=== PATIENT | male | born 1945 | race African-American/Black ===

== ENCOUNTER 2020-08-22 07:42 | Outpatient (CLI) | payer OTHER ==
[2020-08-22] VITALS (8 sets, daily range): BP systolic 94–117; BP diastolic 58–74
[~2020-08-22] VITALS: Ht 177.8 cm; Wt 54.4 kg
[~2020-08-22 07:42] MED LIST: BISA5TAB4 PO; PANT40TA77 PO
[2020-08-22] MEDS ORDERED: LIDOCAINE 1%/EPI 1:100,000 20 ML VIAL. ONE (08:23)
[2020-08-22] MEDS ORDERED: ceFAZolin SODIUM IV Push 1 GM VIAL. IVP ONE ×2 (08:27→08:30)
[2020-08-22] MEDS ORDERED: MIDAZOLAM HCL/PF 2 MG/2 ML VIAL. ONE (08:28)
[2020-08-22] MEDS ORDERED: fentaNYL PF VIAL 100 MCG/2 ML VIAL ONE (08:28)
[2020-08-22] MEDS ORDERED: LIDOCAINE 1%/EPI 1:100,000 20 ML VIAL. SQ ONE (08:30)
[2020-08-22] MEDS ORDERED: MIDAZOLAM HCL/PF 2 MG/2 ML VIAL. IV ONE (08:30)
[2020-08-22] MEDS ORDERED: fentaNYL PF VIAL 100 MCG/2 ML VIAL IV ONE (08:30)
[2020-08-22 08:35] LABS: PROTHROMBIN TIME PATIENT 13.9 SEC (11.7-14.0)
[2020-08-22 08:36] LABS: BASO % 1 % (0-3); EOS # 0.2 x10^3/uL (0.0-0.7); EOS % 3 % (0-3); LYMPH # 2.8 x10^3/uL (1.0-4.8); LYMPH % 35 % (24-48); MEAN CORPUSCULAR HEMOGLOBIN 22 pg (25-35); MEAN CORPUSCULAR HGB CONC 32 g/dL (31-37); MEAN CORPUSCULAR VOLUME 70 fL (79-100); MONO # 0.6 x10^3/uL (0.0-1.1); MONO % 8 % (0-9); NEUT # 4.4 x10^3/uL (1.8-7.7); NEUT % 54 % (31-73); PLATELET COUNT 460 x10^3/uL (140-400); RED BLOOD COUNT 2.67 x10^6/uL (4.30-5.70); WHITE BLOOD COUNT 8.1 x10^3/uL (4.0-11.0)
[2020-08-22] MEDS ORDERED: HEPARIN PF 500 UNIT/5 ML DISP.SYRIN. IVP ONE ×2 (08:56→09:15)
[2020-08-22 09:02] LABS: HEMATOCRIT 18.8 % (39.0-53.0)
--- NOTE | 2020-08-22 09:28 | PDOC ---
MODERATE SEDATION ASSESSMENT RISKS/ALTERNATIVES Risks/Alternatives Risks and alternatives of this type of sedation and procedure discussed with: RISK/ALTERNATIVES: Patient H & P ON CHART H & P H & P on chart and reviewed for co-morbid conditions and appropriate labs. H&P ON CHART: Yes STATUS PREG STATUS ASSESSED: Yes MEDS/ALLERGIES REVIEWED Meds/Allergies Reviewed Medications and Allergies including time and route of recently administered narcotics and sedatives. MEDS/ALLERGIES REVIEWED: Yes ASA RATING ASA RATING: II AIRWAY ASSESSMENT Airway Assessment Airway patency, oral function limitations, presence of caps, crowns, dentures, partials, and ability to extend neck assessed. AIRWAY ASSESSMENT: Yes MALLAMPATI SCORE MALLAMPATI SCORE: II PRE-SEDATION ASSESSMENT PRE-SEDATION ASSESSMENT: Yes SANTOS VALLEJO MD Aug 22, 2020 09:28
--- NOTE | 2020-08-22 09:29 | PDOC ---
BRIEF OPERATIVE NOTE Pre-Op Diagnosis Colon cancer Post-Op Diagnosis same Procedure Performed Port Surgeon Haroon Anesthesia Type: Conscious Sedation Findings right IJ port Complications No immediate SANTOS VALLEJO MD Aug 22, 2020 09:29
--- NOTE | 2020-08-22 11:34 | NUR ---
pt education discussed with family and pt. PIV dc'd. Pt ambulated and tolerated PO. Pt home with family
--- NOTE | 2020-08-22 16:07 | RAD ---
Procedure: Port-A-Cath placement Clinical Indication: Adult male requiring Port-A-Cath for chemotherapy Sedation: Conscious sedation was administered with a total intraprocedural [id number] time of 30 minutes. The patient was monitored by a qualified independent observer throughout the time of sedation. Please refer to the medical record for exact doses of medications utilized to achieve moderate sedation. Antibiotics: Antibiotic was administered intravenously within 1 hour of the procedure start time. Exposure: Fluoro Time: 0.2 minutes Images: 1 Contrast: None Sterility: All elements of maximal sterile barrier technique including the use of a cap, mask, sterile gown, sterile gloves, large sterile sheet, appropriate hand hygiene, and 2% chlorhexidine for cutaneous antisepsis (or acceptable alternative antiseptic per current guidelines) were followed for this procedure. Consent: The procedure was explained in its entirety to the patient or the patients designated treasury representative by a member of the treatment team, including a discussion of the risks, benefits and commonly accepted alternatives to the procedure, as well as the expected consequences of no therapy whatsoever. Discussion of the risks included, but was not limited to, those that are most frequent and those that are rare but possibly severe or life-threatening, as well as the possibility of unforeseen complications. Technique and Findings: Ultrasound interrogation of the right neck revealed patency and compressibility of the internal jugular vein. A hardcopy ultrasound image was recorded as a 21-gauge micropuncture needle was used to gain access to this vessel. The needle was exchanged over a wire for a peel-away sheath. The skin over the ipsilateral anterior chest wall was then copiously anesthetized with 1% lidocaine plus epinephrine, and a small dermatotomy was made. Blunt dissection techniques were used to create a pocket for the port. The port was then tunneled subcutaneously towards the neck dermatotomy then deployed under fluoroscopic guidance through the peel-away sheath such that the distal tip resided in the proximal right atrium. The port was accessed and found to flush and aspirate with ease. The port was packed with heparin. The pocket was copiously irrigated with sterile saline then closed with deep interrupted and running subcuticular 4-0 Vicryl suture. Dermabond was used to close the neck dermatotomy. Complications: No immediate Impression: 1. Ultrasound and fluoroscopic guided right IJ Port-A-Cath placement as described.
== END 2020-08-22 11:59 | disposition home or self-care (01) ==
LOC: INTRAD 07:42
PROVIDERS: ATTEND Internal Medicine Hematology & Oncology
DX: Z45.2 Encounter for adjustment and management of vascular access device (principal); C18.9 Malignant neoplasm of colon, unspecified; F17.210 Nicotine dependence, cigarettes, uncomplicated; Z79.899 Other long term (current) drug therapy; Z72.89 Other problems related to lifestyle; Z98.890 Other specified postprocedural states
CPT/HCPCS: 36415; 36561; 76937; 77001; 85025; 85610; 99152; 99153; C1751; C1769; C1892; J0690; J1642; J2250; J3010; J3490

== ENCOUNTER 2020-08-23 13:54 | Inpatient (IN) | payer OTHER ==
[2020-08-23] VITALS (11 sets, daily range): BP systolic 117–138; BP diastolic 64–83
[~2020-08-23] VITALS: Ht 177.8 cm; Wt 52.9 kg
[~2020-08-23 13:54] MED LIST changes: -ASPI1POW PO; -SIME80TA14 PO
[2020-08-23 16:25] LABS: BASO # 0.1 x10^3/uL (0.0-0.2); BASO % 1 % (0-3); EOS # 0.3 x10^3/uL (0.0-0.7); EOS % 3 % (0-3); LYMPH # 2.1 x10^3/uL (1.0-4.8); LYMPH % 25 % (24-48); MEAN CORPUSCULAR HEMOGLOBIN 22 pg (25-35); MEAN CORPUSCULAR HGB CONC 31 g/dL (31-37); MEAN CORPUSCULAR VOLUME 70 fL (79-100); MONO # 0.7 x10^3/uL (0.0-1.1); MONO % 8 % (0-9); NEUT # 5.4 x10^3/uL (1.8-7.7); NEUT % 63 % (31-73); PLATELET COUNT 458 x10^3/uL (140-400); RED BLOOD COUNT 2.43 x10^6/uL (4.30-5.70); RED CELL DISTRIBUTION WIDTH 38.4 % (11.5-14.5); WHITE BLOOD COUNT 8.5 x10^3/uL (4.0-11.0)
[2020-08-23 16:38] LABS: HEMATOCRIT 17.1 % (39.0-53.0); HEMOGLOBIN 5.4 g/dL (13.0-17.5)
--- NOTE | 2020-08-23 17:14 | PHYS DOC ---
Past Medical History Past Medical History: Anemia Additional Past Medical Histor: colon cancer Past Surgical History: No Surgical History Smoking Status: Current Every Day Smoker Alcohol Use: Rarely General Adult EDM: Chief Complaint: ABNORMAL LABS HPI: HPI: Patient is a 75 year old male who was sent here from his oncology clinic due to low hemoglobin. Patient was recently diagnosed with colon cancer, had intermittent rectal bleeding. Patient denies taking any blood thinner. Patient denies any abdominal pain. Patient denies any cough or fever, no chest pain. Review of Systems: Review of Systems: Constitutional: Denies fever or chills. [] Eyes: Denies change in visual acuity. [] HENT: Denies nasal congestion or sore throat. [] Respiratory: Denies cough or shortness of breath. [] Cardiovascular: Denies chest pain or edema. [] GI: Denies abdominal pain, nausea, vomiting, positive for intermittent rectal bleeding : Denies dysuria. [] Musculoskeletal: Denies back pain or joint pain. [] Integument: Denies rash. [] Neurologic: Denies headache, focal weakness or sensory changes. [] Endocrine: Denies polyuria or polydipsia. [] Lymphatic: Denies swollen glands. [] Psychiatric: Denies depression or anxiety. [] Heart Score: Risk Factors: Risk Factors: DM, Current or recent (<one month) smoker, HTN, HLP, family history of CAD, obesity. Risk Scores: Score 0 - 3: 2.5% MACE over next 6 weeks - Discharge Home Score 4 - 6: 20.3% MACE over next 6 weeks - Admit for Clinical Observation Score 7 - 10: 72.7% MACE over next 6 weeks - Early Invasive Strategies Allergies: Allergies: Allergies Coded Allergies Type Severity Reaction Last Updated Verified No Known Drug Allergies 08/12/20 No Physical Exam: PE: Constitutional: Well developed, well nourished, no acute distress, non-toxic appearance. [] HENT: Normocephalic, atraumatic, bilateral external ears normal, oropharynx moist, no oral exudates, nose normal. [] Eyes: PERRLA, EOMI, conjunctiva normal, no discharge. [] Neck: Normal range of motion, no tenderness, supple, no stridor. [] Cardiovascular:Heart rate regular rhythm, no murmur [] Lungs & Thorax: Bilateral breath sounds clear to auscultation [] Abdomen: Bowel sounds normal, soft, no tenderness, no masses, no pulsatile masses. [] Skin: Warm, dry, no erythema, no rash. [] Back: No tenderness, no CVA tenderness. [] Extremities: No tenderness, no cyanosis, no clubbing, ROM intact, no edema. [] Neurologic: Alert and oriented X 3, normal motor function, normal sensory function, no focal deficits noted. [] Psychologic: Affect normal, judgement normal, mood normal. [] Current Patient Data: Labs: Laboratory Tests Test 08/23/20 16:00 White Blood Count 8.5 x10^3/uL (4.0-11.0) Red Blood Count 2.43 x10^6/uL (4.30-5.70) L Hemoglobin 5.4 g/dL (13.0-17.5) *L Hematocrit 17.1 % (39.0-53.0) *L Mean Corpuscular Volume 70 fL (79-100) L Mean Corpuscular Hemoglobin 22 pg (25-35) L Mean Corpuscular Hemoglobin Concent 31 g/dL (31-37) Red Cell Distribution Width 38.4 % (11.5-14.5) H Platelet Count 458 x10^3/uL (140-400) H Neutrophils (%) (Auto) 63 % (31-73) Lymphocytes (%) (Auto) 25 % (24-48) Monocytes (%) (Auto) 8 % (0-9) Eosinophils (%) (Auto) 3 % (0-3) Basophils (%) (Auto) 1 % (0-3) Neutrophils # (Auto) 5.4 x10^3/uL (1.8-7.7) Lymphocytes # (Auto) 2.1 x10^3/uL (1.0-4.8) Monocytes # (Auto) 0.7 x10^3/uL (0.0-1.1) Eosinophils # (Auto) 0.3 x10^3/uL (0.0-0.7) Basophils # (Auto) 0.1 x10^3/uL (0.0-0.2) Platelet Estimate Pending Laboratory Tests 08/23/20 16:00 Vital Signs: Vital Signs Date Time Temp Pulse Resp B/P (MAP) Pulse Ox O2 Delivery O2 Flow Rate FiO2 08/23/20 15:07 97.5 99 16 129/65 (86) 100 Room Air 97.5 EKG: EKG: [] Radiology/Procedures: Radiology/Procedures: [] Course & Med Decision Making: Course & Med Decision Making Pertinent Labs and Imaging studies reviewed. (See chart for details) [] Dragon Disclaimer: Dragon Disclaimer: This electronic medical record was generated, in whole or in part, using a voice recognition dictation system. Departure Departure Impression: Primary Impression: Anemia Additional Impressions: Colon cancer Rectal bleeding Disposition: ADMITTED INPT THIS HOSP Admitting Physician: TANNER (DR. NEWMAN) Condition: STABLE Referrals: NO PCP (PCP) ESSIE MONTALVO DO Aug 23, 2020 17:14
[2020-08-23 17:15] LABS: PLT ESTIMATE INCREASED (ADEQUATE)
[2020-08-23 17:16] LABS: SCHISTOCYTES MANY; TARGET CELLS OCC; TEAR DROP CELLS OCC
[2020-08-23 17:17] LABS: CALCIUM 8.2 mg/dL (8.5-10.1); CREATININE 0.7 mg/dL (0.7-1.3); GFR 133.4; POTASSIUM 4.3 mmol/L (3.5-5.1)
[2020-08-23 17:17] LABS: BURR CELLS OCC; HYPOCHROMIA MARKED; MICROCYTOSIS MARKED; POIKILOCYTOSIS MARKED
[2020-08-23 17:18] LABS: ANISOCYTOSIS MARKED
[2020-08-23 17:19] LABS: POLYCHROMASIA OCCASIONAL
[2020-08-23 17:20] LABS: ACANTHOCYTES OCC
[2020-08-23 17:30] LABS: ALBUMIN 1.9 g/dL (3.4-5.0); ALBUMIN/GLOBULIN RATIO 0.5 (1.0-1.7); TOTAL BILIRUBIN 0.1 mg/dL (0.2-1.0); TOTAL PROTEIN 5.9 g/dL (6.4-8.2)
[2020-08-23] MEDS ORDERED: ACETAMINOPHEN 500 MG TABLET PO ONE (17:30)
--- NOTE | 2020-08-23 19:02 | HP ---
ADMIT DATE: 08/23/2020 CHIEF COMPLAINT: Abnormal labs. HISTORY OF PRESENT ILLNESS: The patient is a pleasant 75-year-old male who I have seen within the past couple of weeks. Basically, he has got colon cancer and he bleeds down a little bit, so he requires transfusions periodically. Once again, he presents to the ER with abnormal labs. His hemoglobin is down to 5.4. I discussed the case with ER physician. We are going to admit the patient and consult Hematology/Oncology and transfuse him. PAST MEDICAL HISTORY: Colon cancer, chronic anemia, tobacco abuse. ALLERGIES: None. FAMILY HISTORY: Colon cancer. SOCIAL HISTORY: He smokes. No drink or drugs. He is retired. MEDICATIONS: Reviewed, please refer to the MRAD. REVIEW OF SYSTEMS: GENERAL: No history of weight change, weakness or fevers. SKIN: No bruising, hair changes or rashes. EYES: No blurred, double or loss of vision. NOSE AND THROAT: No history of nosebleeds, hoarseness or sore throat. HEART: No history of palpitations, chest pain or shortness of breath on exertion. LUNGS: Denies cough, hemoptysis, wheezing or shortness of breath. GASTROINTESTINAL: Denies changes in appetite, nausea, vomiting, diarrhea or constipation. GENITOURINARY: No history of frequency, urgency, hesitancy or nocturia. NEUROLOGIC: Denies history of numbness, tingling, tremor or weakness. PSYCHIATRIC: No history of panic, anxiety or depression. ENDOCRINE: No history of heat or cold intolerance, polyuria or polydipsia. EXTREMITIES: Denies muscle weakness, joint pain, pain on walking or stiffness. PHYSICAL EXAMINATION: VITALS: Within normal limits and are stable. GENERAL: No apparent distress. Alert and oriented. HEENT: Normal cephalic atraumatic, external auditory canals are patent EYES: Extraocular muscles are intact, pupils are equally round and reactive to light and accommodation MUSCULOSKELETAL: Well developed, well nourished, good range of motion ENDOCRINE: No thyromegaly was palpated LYMPHATICS: No cervical chain or axillary nodes were noted. HEMATOPOIETIC: No bruising. NECK: Supple, no JVD, no thyromegaly was noted. LUNGS: Clear to auscultation in all lung beal without rhonchi or wheezing. HEART: RRR, S1, S2 present. Peripheral pulses intact, no obvious murmurs were noted. ABDOMEN: Soft, nontender. Positive bowel sounds no organomegaly, normal bowel sounds. EXTREMITIES: Without any cyanosis, clubbing, or edema. Pedal pulses intact, Homans sign is negative. NEUROLOGIC: Normal speech, normal tone. A & O x3, moves all extremities, no obvious focal deficits. PSYCHIATRIC: Normal affect, normal mood. Stable. SKIN: No ulcerations or rashes, good skin turgor, no jaundice. VASCULAR: Good capillary refill, neurovascular bundle appears to be intact. LABORATORY DATA: Hemoglobin is 5.4. ASSESSMENT AND PLAN: Colon cancer and chronic anemia. The patient will be admitted. We will transfuse 2 units of packed red blood cells. Consult Hematology/Oncology. Home meds, DVT prophylaxis. Full code. O2 per nasal cannula. Trend labs. AILIN NEWMAN DO DR: TIMA/anamika JOB#: [id number] / [id number]
[2020-08-24] VITALS (7 sets, daily range): BP systolic 115–133; BP diastolic 63–79
[2020-08-24] MEDS ORDERED: ASPI1POW PO (00:16)
[2020-08-24] MEDS: MORPHINE SULFATE 2 MG/ML VIAL. IV PRN (06:12)
[2020-08-24] MEDS: PANTOPRAZOLE 40 MG TABLET.DR. PO SCH (06:12)
[2020-08-24 06:38] LABS: BASO # 0.1 x10^3/uL (0.0-0.2); BASO % 1 % (0-3); EOS # 0.2 x10^3/uL (0.0-0.7); EOS % 3 % (0-3); HEMATOCRIT 23.4 % (39.0-53.0); LYMPH # 2.5 x10^3/uL (1.0-4.8); LYMPH % 30 % (24-48); MEAN CORPUSCULAR HEMOGLOBIN 24 pg (25-35); MEAN CORPUSCULAR HGB CONC 33 g/dL (31-37); MEAN CORPUSCULAR VOLUME 74 fL (79-100); MONO # 0.6 x10^3/uL (0.0-1.1); MONO % 7 % (0-9); NEUT # 4.9 x10^3/uL (1.8-7.7); NEUT % 59 % (31-73); PLATELET COUNT 425 x10^3/uL (140-400); RED BLOOD COUNT 3.17 x10^6/uL (4.30-5.70); RED CELL DISTRIBUTION WIDTH 33.8 % (11.5-14.5); WHITE BLOOD COUNT 8.3 x10^3/uL (4.0-11.0)
[2020-08-24 06:42] LABS: HEMOGLOBIN 7.6 g/dL (13.0-17.5)
[2020-08-24 06:49] LABS: CALCIUM 8.3 mg/dL (8.5-10.1); CREATININE 0.7 mg/dL (0.7-1.3); GFR 133.4; POTASSIUM 4.1 mmol/L (3.5-5.1)
--- NOTE | 2020-08-24 08:05 | PDOC ---
[employer] PROGRESS NOTE Date of Service DOS: DATE: 08/24/20 TIME: 08:05 Chief Complaint Chief Complaint Colon cancer Chronic anemia Tobacco abuse. History of Present Illness History of Present Illness 08/24/2020 Patient seen and examined Chart reviewed Discussed with RN Patient appeared to be comfortable but was complaining of runny stool. Vitals/I&O Vitals/I&O: Vital Signs Date Time Temp Pulse Resp B/P (MAP) Pulse Ox O2 Delivery O2 Flow Rate FiO2 08/24/20 07:00 98.0 75 18 126/76 (93) 90 Room Air 98.0 I & O 08/23/20 08/23/20 08/24/20 15:00 23:00 07:00 Intake Total 360 ml 680 ml Balance 360 ml 680 ml Physical Exam General: Alert, Oriented X3, Cooperative Heart: Regular rate, Normal S1, Normal S2 Lungs: Clear Abdomen: Normal bowel sounds, Soft Labs Labs: Laboratory Tests Test 08/23/20 16:00 08/23/20 16:52 08/24/20 06:25 White Blood Count 8.5 x10^3/uL (4.0-11.0) 8.3 x10^3/uL (4.0-11.0) Red Blood Count 2.43 x10^6/uL (4.30-5.70) 3.17 x10^6/uL (4.30-5.70) Hemoglobin 5.4 g/dL (13.0-17.5) 7.6 g/dL (13.0-17.5) Hematocrit 17.1 % (39.0-53.0) 23.4 % (39.0-53.0) Mean Corpuscular Volume 70 fL (79-100) 74 fL (79-100) Mean Corpuscular Hemoglobin 22 pg (25-35) 24 pg (25-35) Mean Corpuscular Hemoglobin Concent 31 g/dL (31-37) 33 g/dL (31-37) Red Cell Distribution Width 38.4 % (11.5-14.5) 33.8 % (11.5-14.5) Platelet Count 458 x10^3/uL (140-400) 425 x10^3/uL (140-400) Neutrophils (%) (Auto) 63 % (31-73) 59 % (31-73) Lymphocytes (%) (Auto) 25 % (24-48) 30 % (24-48) Monocytes (%) (Auto) 8 % (0-9) 7 % (0-9) Eosinophils (%) (Auto) 3 % (0-3) 3 % (0-3) Basophils (%) (Auto) 1 % (0-3) 1 % (0-3) Neutrophils # (Auto) 5.4 x10^3/uL (1.8-7.7) 4.9 x10^3/uL (1.8-7.7) Lymphocytes # (Auto) 2.1 x10^3/uL (1.0-4.8) 2.5 x10^3/uL (1.0-4.8) Monocytes # (Auto) 0.7 x10^3/uL (0.0-1.1) 0.6 x10^3/uL (0.0-1.1) Eosinophils # (Auto) 0.3 x10^3/uL (0.0-0.7) 0.2 x10^3/uL (0.0-0.7) Basophils # (Auto) 0.1 x10^3/uL (0.0-0.2) 0.1 x10^3/uL (0.0-0.2) Platelet Estimate Increased (ADEQUATE) Polychromasia Occasional Hypochromasia Marked Poikilocytosis Marked Anisocytosis Marked Microcytosis Marked Target Cells Occ Tear Drop Cells Occ Tavon Cells Occ Acanthocytes Occ Schistocytes Many Sodium Level 143 mmol/L (136-145) 142 mmol/L (136-145) Potassium Level 4.3 mmol/L (3.5-5.1) 4.1 mmol/L (3.5-5.1) Chloride Level 108 mmol/L (98-107) 108 mmol/L (98-107) Carbon Dioxide Level 28 mmol/L (21-32) 28 mmol/L (21-32) Anion Gap 7 (6-14) 6 (6-14) Blood Urea Nitrogen 16 mg/dL (8-26) 15 mg/dL (8-26) Creatinine 0.7 mg/dL (0.7-1.3) 0.7 mg/dL (0.7-1.3) Estimated GFR (Cockcroft-Gault) 133.4 133.4 BUN/Creatinine Ratio 23 (6-20) Glucose Level 89 mg/dL (70-99) 79 mg/dL (70-99) Calcium Level 8.2 mg/dL (8.5-10.1) 8.3 mg/dL (8.5-10.1) Total Bilirubin 0.1 mg/dL (0.2-1.0) Aspartate Amino Transf (AST/SGOT) 18 U/L (15-37) Alanine Aminotransferase (ALT/SGPT) 17 U/L (16-63) Alkaline Phosphatase 83 U/L (46-116) Total Protein 5.9 g/dL (6.4-8.2) Albumin 1.9 g/dL (3.4-5.0) Albumin/Globulin Ratio 0.5 (1.0-1.7) Assessment and Plan Assessmemt and Plan Assessment Colon cancer Chronic anemia Tobacco abuse Plan Full code DVT PPX Trend labs Subspecialty input appreciated PT/OT Continue home meds Problems Medical Problems: (1) Anemia Status: Acute (2) Colon cancer Status: Acute (3) Rectal bleeding Status: Acute Comment Review of Relevant I have reviewed the following items april (where applicable) has been applied. Medications: Current Medications Medications (Trade) Dose Ordered Sig/Marck Route PRN Reason Start Time Stop Time Status Last Admin Dose Admin Acetaminophen (Tylenol) 1,000 mg 1X ONCE PO 08/23/20 17:30 08/23/20 17:31 DC 08/23/20 17:26 Morphine Sulfate (Morphine Sulfate) 2 mg PRN Q2HR PRN IV SEVERE PAIN 7-10 08/24/20 02:00 08/24/20 06:12 Pantoprazole Sodium (Protonix) 40 mg DAILYAC PO 08/24/20 07:30 08/24/20 06:12 Justifications for Admission Other Justification AILIN NEWMAN III DO Aug 24, 2020 08:05
[2020-08-24] MEDS: SIMETHICONE 80 MG TAB.CHEW PO PRN (15:14)
[2020-08-24] MEDS: ACETAMINOPHEN 325 MG TABLET. PO PRN (18:43)
[2020-08-25 04:00] VITALS: BP 124/70
[2020-08-25] MEDS: ACETAMINOPHEN 325 MG TABLET. PO PRN ×2 (06:37→20:03)
[2020-08-25] MEDS: PANTOPRAZOLE 40 MG TABLET.DR. PO SCH (06:40)
[2020-08-25 06:42] LABS: BASO # 0.1 x10^3/uL (0.0-0.2); BASO % 1 % (0-3); EOS # 0.2 x10^3/uL (0.0-0.7); EOS % 2 % (0-3); HEMATOCRIT 23.5 % (39.0-53.0); HEMOGLOBIN 7.6 g/dL (13.0-17.5); LYMPH # 2.6 x10^3/uL (1.0-4.8); LYMPH % 32 % (24-48); MEAN CORPUSCULAR HEMOGLOBIN 24 pg (25-35); MEAN CORPUSCULAR HGB CONC 32 g/dL (31-37); MEAN CORPUSCULAR VOLUME 73 fL (79-100); MONO # 0.6 x10^3/uL (0.0-1.1); MONO % 8 % (0-9); NEUT # 4.7 x10^3/uL (1.8-7.7); NEUT % 57 % (31-73); PLATELET COUNT 445 x10^3/uL (140-400); RED CELL DISTRIBUTION WIDTH 34.4 % (11.5-14.5); WHITE BLOOD COUNT 8.1 x10^3/uL (4.0-11.0)
[2020-08-25 06:46] LABS: CALCIUM 8.2 mg/dL (8.5-10.1); CREATININE 0.9 mg/dL (0.7-1.3); GFR 99.8; POTASSIUM 3.8 mmol/L (3.5-5.1)
[2020-08-25 07:59] VITALS: BP 117/73
--- NOTE | 2020-08-25 09:23 | PDOC ---
[employer] PROGRESS NOTE Date of Service DOS: DATE: 08/25/20 TIME: 09:21 Chief Complaint Chief Complaint Colon cancer Chronic anemia Tobacco abuse. History of Present Illness History of Present Illness 08/24/2020 Patient seen and examined Chart reviewed Discussed with RN Patient appeared to be comfortable but was complaining of runny stool. 08/25 Patient seen and examined Chart reviewed Discussed with RN Patient is comfortable and was resting when we seen him Vitals/I&O Vitals/I&O: Vital Signs Date Time Temp Pulse Resp B/P (MAP) Pulse Ox O2 Delivery O2 Flow Rate FiO2 08/25/20 07:59 97.4 117/73 (88) 95 Room Air 97.4 I & O 08/24/20 08/24/20 08/25/20 15:00 23:00 07:00 Intake Total 700 ml 500 ml Balance 700 ml 500 ml Physical Exam General: Alert, Oriented X3, Cooperative Heart: Regular rate, Normal S1, Normal S2 Lungs: Clear Abdomen: Normal bowel sounds, Soft Extremities: No clubbing, No edema Skin: No rashes, No breakdown Labs Labs: Laboratory Tests Test 08/25/20 06:10 White Blood Count 8.1 x10^3/uL (4.0-11.0) Red Blood Count 3.20 x10^6/uL (4.30-5.70) Hemoglobin 7.6 g/dL (13.0-17.5) Hematocrit 23.5 % (39.0-53.0) Mean Corpuscular Volume 73 fL (79-100) Mean Corpuscular Hemoglobin 24 pg (25-35) Mean Corpuscular Hemoglobin Concent 32 g/dL (31-37) Red Cell Distribution Width 34.4 % (11.5-14.5) Platelet Count 445 x10^3/uL (140-400) Neutrophils (%) (Auto) 57 % (31-73) Lymphocytes (%) (Auto) 32 % (24-48) Monocytes (%) (Auto) 8 % (0-9) Eosinophils (%) (Auto) 2 % (0-3) Basophils (%) (Auto) 1 % (0-3) Neutrophils # (Auto) 4.7 x10^3/uL (1.8-7.7) Lymphocytes # (Auto) 2.6 x10^3/uL (1.0-4.8) Monocytes # (Auto) 0.6 x10^3/uL (0.0-1.1) Eosinophils # (Auto) 0.2 x10^3/uL (0.0-0.7) Basophils # (Auto) 0.1 x10^3/uL (0.0-0.2) Sodium Level 141 mmol/L (136-145) Potassium Level 3.8 mmol/L (3.5-5.1) Chloride Level 107 mmol/L (98-107) Carbon Dioxide Level 28 mmol/L (21-32) Anion Gap 6 (6-14) Blood Urea Nitrogen 11 mg/dL (8-26) Creatinine 0.9 mg/dL (0.7-1.3) Estimated GFR (Cockcroft-Gault) 99.8 Glucose Level 75 mg/dL (70-99) Calcium Level 8.2 mg/dL (8.5-10.1) Review of Systems Review of Systems: Denies chest pain or palpitations Denies headache or changes in vision Denies itching or rashes Assessment and Plan Assessmemt and Plan Problems Medical Problems: (1) Anemia Status: Acute (2) Colon cancer Status: Acute (3) Rectal bleeding Status: Acute Assessment: Colon cancer Chronic anemia Tobacco abuse. Plan: Trend hemoglobin Prn transfusions Awaiting oncology input Full code DVT prophylaxis Home meds PT/OT Comment Review of Relevant I have reviewed the following items april (where applicable) has been applied. Medications: Current Medications Medications (Trade) Dose Ordered Sig/Marck Route PRN Reason Start Time Stop Time Status Last Admin Dose Admin Simethicone (Gas-X) 80 mg PRN Q6HRS PRN PO GAS / BLOATING 08/24/20 13:45 08/24/20 15:14 Acetaminophen (Tylenol) 650 mg PRN Q6HRS PRN PO MILD PAIN / TEMP > 100.3'F 08/24/20 18:30 08/25/20 06:37 Justifications for Admission Other Justification AILIN NEWMAN III DO Aug 25, 2020 09:23
[2020-08-25 11:59] VITALS: BP 124/73
--- NOTE | 2020-08-25 14:26 | PDOC ---
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 Hb has improved post-transfusion. Oncology consult has been requested due to cancer hx. Patient is known to me from the office and is planned to start chemotherapy tomorrow. Recommendations: -Can DC home from my standpoint. Plan to start chemo jamison after discharge. Would like to start tomorrow -No additional transfusions needed at this time -Will plan additional IV iron in the office for iron deficiency -Full consult to follow. Please call [phone] with questions Godwin Larsen MD Hem-Onc SUKUMAR LARSEN MD Aug 25, 2020 14:26
[2020-08-25 15:59] VITALS: BP 132/81
[2020-08-25 19:00] VITALS: BP 134/80
[2020-08-25] MEDS: SIMETHICONE 80 MG TAB.CHEW PO PRN (20:06)
[2020-08-25 23:04] VITALS: BP 131/77
[2020-08-26] MEDS: SIMETHICONE 80 MG TAB.CHEW PO PRN (02:54)
[2020-08-26 03:07] VITALS: BP 130/77
[2020-08-26] MEDS: PANTOPRAZOLE 40 MG TABLET.DR. PO SCH (06:21)
[2020-08-26] MEDS: MORPHINE SULFATE 2 MG/ML VIAL. IV PRN (06:25)
[2020-08-26 06:49] LABS: CALCIUM 8.3 mg/dL (8.5-10.1); CREATININE 0.9 mg/dL (0.7-1.3); GFR 99.8
[2020-08-26 06:57] LABS: BASO # 0.1 x10^3/uL (0.0-0.2); BASO % 1 % (0-3); EOS # 0.2 x10^3/uL (0.0-0.7); EOS % 3 % (0-3); HEMOGLOBIN 7.8 g/dL (13.0-17.5); LYMPH # 3.1 x10^3/uL (1.0-4.8); LYMPH % 46 % (24-48); MEAN CORPUSCULAR HEMOGLOBIN 24 pg (25-35); MEAN CORPUSCULAR HGB CONC 32 g/dL (31-37); MEAN CORPUSCULAR VOLUME 73 fL (79-100); MONO # 0.5 x10^3/uL (0.0-1.1); MONO % 7 % (0-9); NEUT # 2.9 x10^3/uL (1.8-7.7); NEUT % 43 % (31-73); PLATELET COUNT 442 x10^3/uL (140-400); RED BLOOD COUNT 3.29 x10^6/uL (4.30-5.70); RED CELL DISTRIBUTION WIDTH 34.2 % (11.5-14.5); WHITE BLOOD COUNT 6.6 x10^3/uL (4.0-11.0)
[2020-08-26 07:00] VITALS: BP 125/78
--- NOTE | 2020-08-26 08:10 | PDOC2 ---
CONSULT Date of Consult Date of Consult DATE: 08/26/20 TIME: 08:06 Reason for Consult Reason for Consult: Rectal cancer Referring Physician Referring Physician: Dr. 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 Patient was recently diagnosed with rectal cancer after presenting with a years history of hematochezia. He received a colonoscopy which showed rectosigmoid ulcerating mass. Biopsy showed adenocarcinoma. Additional evaluation with staging studies showed locally advanced rectosigmoid mass without evidence of distant metastasis. He has been seen by radiation oncology and medical oncology. He was to start systemic therapy with FOLFOX prior to beginning chemoradiation with 5-FU. He has been admitted due to severe anemia with hemoglobin of 5.9. Hemoglobin is improved following transfusion. Oncology consultation has been sought due to the patient's history of rectal cancer. Patient reports no additional concerns at this time. Past Medical History Heme/Onc: Other Past Surgical History Past Surgical History: No pertinent history Family History Family History: Cancer Social History ALCOHOL: occassional Drugs: Marijuana Current Problem List Problem List Problems Medical Problems: (1) Anemia Status: Acute (2) Colon cancer Status: Acute (3) Rectal bleeding Status: Acute Current Medications Current Medications Current Medications Acetaminophen (Tylenol) 1,000 mg 1X ONCE PO Last administered on 08/23/20at 17:26; Start 08/23/20 at 17:30; Stop 08/23/20 at 17:31; Status DC Morphine Sulfate (Morphine Sulfate) 2 mg PRN Q2HR PRN IV SEVERE PAIN 7-10 Last administered on 08/26/20at 06:25; Start 08/24/20 at 02:00 Pantoprazole Sodium (Protonix) 40 mg DAILYAC PO Last administered on 08/26/20at 06:21; Start 08/24/20 at 07:30 Simethicone (Gas-X) 80 mg PRN Q6HRS PRN PO GAS / BLOATING Last administered on 08/26/20at 02:54; Start 08/24/20 at 13:45 Acetaminophen (Tylenol) 650 mg PRN Q6HRS PRN PO MILD PAIN / TEMP > 100.3'F Last administered on 08/25/20at 20:03; Start 08/24/20 at 18:30 Active Scripts Active Pantoprazole Sodium (Pantoprazole Sodium) 40 Mg Tablet. 40 Mg PO DAILYAC 30 Days Reported Bc Pain Relief Powder Packet (Aspirin/Caffeine) 1 Each Powd.pack 1 Each PO Q6HRS PRN Allergies Allergies: Coded Allergies: No Known Drug Allergies (Unverified , 08/12/20) ROS General: No: Chills, Night Sweats PSYCHOLOGICAL ROS: No: Anxiety, Behavioral Disorder Eyes: No Blurry vision, No Decreased vision HEENT: No: Heacaches, Visual Changes ALLERGY AND IMMUNOLOGY: No: Hives, Insect Bite Sensitivity Hematological and Lymphatic: No: Bleeding Problems ENDOCRINE: No: Malaise/lethargy, Mood Swings Respiratory: No: Cough, Hemoptysis Cardiovascular: No Chest Pain, No Palpitations Gastrointestinal: No Nausea Genitourinary: No Dysuria, No Frequency Musculoskeletal: No Gait Disturbance, No Joint Pain Neurological: No Behavorial Changes Skin: No Dry Skin, No Eczema Physical Exam General: Alert, Oriented X3 HEENT: Atraumatic Lungs: Clear to auscultation Heart: Regular rate, Normal S1, Normal S2 Abdomen: Normal bowel sounds, Soft Extremities: No clubbing Skin: No rashes Neuro: Normal gait Psych/Mental Status: Mental status NL MUSCULOSKELETAL: No deformity Vitals VITALS Vital Signs Date Time Temp Pulse Resp B/P (MAP) Pulse Ox O2 Delivery O2 Flow Rate FiO2 08/26/20 06:55 18 100 Room Air 08/26/20 03:07 98.5 95 130/77 (94) 98.5 Labs Labs Laboratory Tests Test 08/25/20 06:10 08/26/20 06:30 White Blood Count 8.1 x10^3/uL (4.0-11.0) 6.6 x10^3/uL (4.0-11.0) Red Blood Count 3.20 x10^6/uL (4.30-5.70) 3.29 x10^6/uL (4.30-5.70) Hemoglobin 7.6 g/dL (13.0-17.5) 7.8 g/dL (13.0-17.5) Hematocrit 23.5 % (39.0-53.0) 24.0 % (39.0-53.0) Mean Corpuscular Volume 73 fL (79-100) 73 fL (79-100) Mean Corpuscular Hemoglobin 24 pg (25-35) 24 pg (25-35) Mean Corpuscular Hemoglobin Concent 32 g/dL (31-37) 32 g/dL (31-37) Red Cell Distribution Width 34.4 % (11.5-14.5) 34.2 % (11.5-14.5) Platelet Count 445 x10^3/uL (140-400) 442 x10^3/uL (140-400) Neutrophils (%) (Auto) 57 % (31-73) 43 % (31-73) Lymphocytes (%) (Auto) 32 % (24-48) 46 % (24-48) Monocytes (%) (Auto) 8 % (0-9) 7 % (0-9) Eosinophils (%) (Auto) 2 % (0-3) 3 % (0-3) Basophils (%) (Auto) 1 % (0-3) 1 % (0-3) Neutrophils # (Auto) 4.7 x10^3/uL (1.8-7.7) 2.9 x10^3/uL (1.8-7.7) Lymphocytes # (Auto) 2.6 x10^3/uL (1.0-4.8) 3.1 x10^3/uL (1.0-4.8) Monocytes # (Auto) 0.6 x10^3/uL (0.0-1.1) 0.5 x10^3/uL (0.0-1.1) Eosinophils # (Auto) 0.2 x10^3/uL (0.0-0.7) 0.2 x10^3/uL (0.0-0.7) Basophils # (Auto) 0.1 x10^3/uL (0.0-0.2) 0.1 x10^3/uL (0.0-0.2) Sodium Level 141 mmol/L (136-145) 141 mmol/L (136-145) Potassium Level 3.8 mmol/L (3.5-5.1) 4.0 mmol/L (3.5-5.1) Chloride Level 107 mmol/L (98-107) 107 mmol/L (98-107) Carbon Dioxide Level 28 mmol/L (21-32) 28 mmol/L (21-32) Anion Gap 6 (6-14) 6 (6-14) Blood Urea Nitrogen 11 mg/dL (8-26) 11 mg/dL (8-26) Creatinine 0.9 mg/dL (0.7-1.3) 0.9 mg/dL (0.7-1.3) Estimated GFR (Cockcroft-Gault) 99.8 99.8 Glucose Level 75 mg/dL (70-99) 78 mg/dL (70-99) Calcium Level 8.2 mg/dL (8.5-10.1) 8.3 mg/dL (8.5-10.1) Laboratory Tests Test 08/26/20 06:30 White Blood Count 6.6 x10^3/uL (4.0-11.0) Red Blood Count 3.29 x10^6/uL (4.30-5.70) Hemoglobin 7.8 g/dL (13.0-17.5) Hematocrit 24.0 % (39.0-53.0) Mean Corpuscular Volume 73 fL (79-100) Mean Corpuscular Hemoglobin 24 pg (25-35) Mean Corpuscular Hemoglobin Concent 32 g/dL (31-37) Red Cell Distribution Width 34.2 % (11.5-14.5) Platelet Count 442 x10^3/uL (140-400) Neutrophils (%) (Auto) 43 % (31-73) Lymphocytes (%) (Auto) 46 % (24-48) Monocytes (%) (Auto) 7 % (0-9) Eosinophils (%) (Auto) 3 % (0-3) Basophils (%) (Auto) 1 % (0-3) Neutrophils # (Auto) 2.9 x10^3/uL (1.8-7.7) Lymphocytes # (Auto) 3.1 x10^3/uL (1.0-4.8) Monocytes # (Auto) 0.5 x10^3/uL (0.0-1.1) Eosinophils # (Auto) 0.2 x10^3/uL (0.0-0.7) Basophils # (Auto) 0.1 x10^3/uL (0.0-0.2) Sodium Level 141 mmol/L (136-145) Potassium Level 4.0 mmol/L (3.5-5.1) Chloride Level 107 mmol/L (98-107) Carbon Dioxide Level 28 mmol/L (21-32) Anion Gap 6 (6-14) Blood Urea Nitrogen 11 mg/dL (8-26) Creatinine 0.9 mg/dL (0.7-1.3) Estimated GFR (Cockcroft-Gault) 99.8 Glucose Level 78 mg/dL (70-99) Calcium Level 8.3 mg/dL (8.5-10.1) Assessment/Plan Assessment/Plan Assessment: 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 No additional transfusion required at this time from my standpoint -Would recommend discharge from the hospital at the earliest -Plan to start neoadjuvant chemotherapy following hospital discharge with FOLFOX -Rest per Dr. Leslye Larsen MD Medical Oncology/Hematology Ph: [phone] SUKUMAR LARSEN MD Aug 26, 2020 08:09
--- NOTE | 2020-08-26 09:10 | PDOC ---
[employer] PROGRESS NOTE Date of Service DOS: DATE: 08/26/20 TIME: 09:09 Chief Complaint Chief Complaint Colon cancer Chronic anemia Tobacco abuse. History of Present Illness History of Present Illness 08/24/2020 Patient seen and examined Chart reviewed Discussed with RN Patient appeared to be comfortable but was complaining of runny stool. 08/25 Patient seen and examined Chart reviewed Discussed with RN Patient is comfortable and was resting when we seen him 08/26/2020 Patient seen and examined at bedside. He is to begin chemotherapy as outpatient immediately following his discharge. Reports some lower abdominal pain. Denies any fevers or shortness of breath. Greater than 30 minutes was spent managing the discharge this patient. Vitals/I&O Vitals/I&O: Vital Signs Date Time Temp Pulse Resp B/P (MAP) Pulse Ox O2 Delivery O2 Flow Rate FiO2 08/26/20 06:55 18 100 Room Air 08/26/20 03:07 98.5 95 130/77 (94) 98.5 I & O 08/25/20 08/25/20 08/26/20 15:00 23:00 07:00 Intake Total 320 ml Balance 320 ml Physical Exam General: Alert, Oriented X3 Heart: Regular rate, Normal S1, Normal S2 Lungs: Clear Abdomen: Normal bowel sounds, Soft Extremities: No clubbing Skin: No rashes Labs Labs: Laboratory Tests Test 08/26/20 06:30 White Blood Count 6.6 x10^3/uL (4.0-11.0) Red Blood Count 3.29 x10^6/uL (4.30-5.70) Hemoglobin 7.8 g/dL (13.0-17.5) Hematocrit 24.0 % (39.0-53.0) Mean Corpuscular Volume 73 fL (79-100) Mean Corpuscular Hemoglobin 24 pg (25-35) Mean Corpuscular Hemoglobin Concent 32 g/dL (31-37) Red Cell Distribution Width 34.2 % (11.5-14.5) Platelet Count 442 x10^3/uL (140-400) Neutrophils (%) (Auto) 43 % (31-73) Lymphocytes (%) (Auto) 46 % (24-48) Monocytes (%) (Auto) 7 % (0-9) Eosinophils (%) (Auto) 3 % (0-3) Basophils (%) (Auto) 1 % (0-3) Neutrophils # (Auto) 2.9 x10^3/uL (1.8-7.7) Lymphocytes # (Auto) 3.1 x10^3/uL (1.0-4.8) Monocytes # (Auto) 0.5 x10^3/uL (0.0-1.1) Eosinophils # (Auto) 0.2 x10^3/uL (0.0-0.7) Basophils # (Auto) 0.1 x10^3/uL (0.0-0.2) Sodium Level 141 mmol/L (136-145) Potassium Level 4.0 mmol/L (3.5-5.1) Chloride Level 107 mmol/L (98-107) Carbon Dioxide Level 28 mmol/L (21-32) Anion Gap 6 (6-14) Blood Urea Nitrogen 11 mg/dL (8-26) Creatinine 0.9 mg/dL (0.7-1.3) Estimated GFR (Cockcroft-Gault) 99.8 Glucose Level 78 mg/dL (70-99) Calcium Level 8.3 mg/dL (8.5-10.1) Review of Systems Review of Systems: Abdominal pain. Denies fever, denies shortness of breath, denies chest pain. Assessment and Plan Assessmemt and Plan Problems Medical Problems: (1) Anemia Status: Acute (2) Colon cancer Status: Acute (3) Rectal bleeding Status: Acute Comment Review of Relevant I have reviewed the following items april (where applicable) has been applied. Justifications for Admission Other Justification MEGHANA LACY MD Aug 26, 2020 09:10
[2020-08-26] MEDS ORDERED: SIME80TA14 PO (09:39)
--- NOTE | 2020-08-26 09:40 | SNU/HH DC ---
DISCHARGE WITH HOME HEALTH DISCHARGE INFORMATION: Discharge Date: Aug 26, 2020 Final Diagnosis: Problems Medical Problems: (1) Anemia Status: Acute (2) Colon cancer Status: Acute (3) Rectal bleeding Status: Acute Condition on Discharge: Stable CODE STATUS: Code Status: Full HOME HEALTH: Face to Face: I certify this patient is under my care and that I, or a nurse practitioner or physician's assistant general manager working with me, had a face to face encounter that meets the physician face to face encounter requirements with this patient on 08/26/2020. RN For Eval/Treatment: Yes Pt Meets Homebound Status: Fatigue w/ amb. POST DISCHARGE ORDERS: Activity Instructions for Disc: Resume previous activity, Activity as tolerated Weight Bearing Status after Di: Full weight bearing, As tolerated TREATMENT/EQUIPMENT ORDERS: Adaptive Equipment Issued: None CERTIFICATION STATEMENT: Certification Statement: Certification Statement: Based on the above finding, I certify that this patient is confined to the home and needs intermittent chcf care, physical therapy and/or speech therapy, or continues to need occupational therapy.~ This patient is under my care, and I have initiated the establishment of the plan of care.~ This patient will be followed by myself or a community physician who will periodically review the plan of care. Home Meds Active Scripts Pantoprazole Sodium (PANTOPRAZOLE SODIUM ) 40 Mg Tablet.dr, 40 MG PO DAILYAC for GERD for 30 Days, #30 TAB.SR 2 Refills Prov:ADORE JOHNSON MD 08/14/20 Reported Medications Aspirin/Caffeine ( Pain Relief Powder Packet) 1 Each Powd.pack, 1 EACH PO Q6HRS PRN for PAIN, PKT 08/24/20 MEGHANA LACY MD Aug 26, 2020 09:40
--- NOTE | 2020-08-26 09:45 | PDOC3 ---
Discharge Summary Visit Information Date of Admission: Aug 23, 2020 Date of Discharge: Aug 26, 2020 Final Diagnosis Problems Medical Problems: (1) Anemia Status: Acute (2) Colon cancer Status: Acute (3) Rectal bleeding Status: Acute Brief Hospital Course Allergies Allergies Coded Allergies Type Severity Reaction Last Updated Verified No Known Drug Allergies 08/12/20 No Vital Signs Vital Signs Date Time Temp Pulse Resp B/P (MAP) Pulse Ox O2 Delivery O2 Flow Rate FiO2 08/26/20 06:55 18 100 Room Air 08/26/20 03:07 98.5 95 130/77 (94) 98.5 Lab Results Laboratory Tests Test 08/25/20 06:10 08/26/20 06:30 White Blood Count 8.1 x10^3/uL (4.0-11.0) 6.6 x10^3/uL (4.0-11.0) Red Blood Count 3.20 x10^6/uL (4.30-5.70) 3.29 x10^6/uL (4.30-5.70) Hemoglobin 7.6 g/dL (13.0-17.5) 7.8 g/dL (13.0-17.5) Hematocrit 23.5 % (39.0-53.0) 24.0 % (39.0-53.0) Mean Corpuscular Volume 73 fL (79-100) 73 fL (79-100) Mean Corpuscular Hemoglobin 24 pg (25-35) 24 pg (25-35) Mean Corpuscular Hemoglobin Concent 32 g/dL (31-37) 32 g/dL (31-37) Red Cell Distribution Width 34.4 % (11.5-14.5) 34.2 % (11.5-14.5) Platelet Count 445 x10^3/uL (140-400) 442 x10^3/uL (140-400) Neutrophils (%) (Auto) 57 % (31-73) 43 % (31-73) Lymphocytes (%) (Auto) 32 % (24-48) 46 % (24-48) Monocytes (%) (Auto) 8 % (0-9) 7 % (0-9) Eosinophils (%) (Auto) 2 % (0-3) 3 % (0-3) Basophils (%) (Auto) 1 % (0-3) 1 % (0-3) Neutrophils # (Auto) 4.7 x10^3/uL (1.8-7.7) 2.9 x10^3/uL (1.8-7.7) Lymphocytes # (Auto) 2.6 x10^3/uL (1.0-4.8) 3.1 x10^3/uL (1.0-4.8) Monocytes # (Auto) 0.6 x10^3/uL (0.0-1.1) 0.5 x10^3/uL (0.0-1.1) Eosinophils # (Auto) 0.2 x10^3/uL (0.0-0.7) 0.2 x10^3/uL (0.0-0.7) Basophils # (Auto) 0.1 x10^3/uL (0.0-0.2) 0.1 x10^3/uL (0.0-0.2) Sodium Level 141 mmol/L (136-145) 141 mmol/L (136-145) Potassium Level 3.8 mmol/L (3.5-5.1) 4.0 mmol/L (3.5-5.1) Chloride Level 107 mmol/L (98-107) 107 mmol/L (98-107) Carbon Dioxide Level 28 mmol/L (21-32) 28 mmol/L (21-32) Anion Gap 6 (6-14) 6 (6-14) Blood Urea Nitrogen 11 mg/dL (8-26) 11 mg/dL (8-26) Creatinine 0.9 mg/dL (0.7-1.3) 0.9 mg/dL (0.7-1.3) Estimated GFR (Cockcroft-Gault) 99.8 99.8 Glucose Level 75 mg/dL (70-99) 78 mg/dL (70-99) Calcium Level 8.2 mg/dL (8.5-10.1) 8.3 mg/dL (8.5-10.1) Laboratory Tests Test 08/26/20 06:30 White Blood Count 6.6 x10^3/uL (4.0-11.0) Red Blood Count 3.29 x10^6/uL (4.30-5.70) Hemoglobin 7.8 g/dL (13.0-17.5) Hematocrit 24.0 % (39.0-53.0) Mean Corpuscular Volume 73 fL (79-100) Mean Corpuscular Hemoglobin 24 pg (25-35) Mean Corpuscular Hemoglobin Concent 32 g/dL (31-37) Red Cell Distribution Width 34.2 % (11.5-14.5) Platelet Count 442 x10^3/uL (140-400) Neutrophils (%) (Auto) 43 % (31-73) Lymphocytes (%) (Auto) 46 % (24-48) Monocytes (%) (Auto) 7 % (0-9) Eosinophils (%) (Auto) 3 % (0-3) Basophils (%) (Auto) 1 % (0-3) Neutrophils # (Auto) 2.9 x10^3/uL (1.8-7.7) Lymphocytes # (Auto) 3.1 x10^3/uL (1.0-4.8) Monocytes # (Auto) 0.5 x10^3/uL (0.0-1.1) Eosinophils # (Auto) 0.2 x10^3/uL (0.0-0.7) Basophils # (Auto) 0.1 x10^3/uL (0.0-0.2) Sodium Level 141 mmol/L (136-145) Potassium Level 4.0 mmol/L (3.5-5.1) Chloride Level 107 mmol/L (98-107) Carbon Dioxide Level 28 mmol/L (21-32) Anion Gap 6 (6-14) Blood Urea Nitrogen 11 mg/dL (8-26) Creatinine 0.9 mg/dL (0.7-1.3) Estimated GFR (Cockcroft-Gault) 99.8 Glucose Level 78 mg/dL (70-99) Calcium Level 8.3 mg/dL (8.5-10.1) Brief Hospital Course Mr. Schmidt is a 75 old male, with history of rectosigmoid colon cancer, who presented with symptomatic anemia. Hemoglobin on admission was 5.4. He received transfusion of packed red blood cells with improvement of his hemoglobin to 7.8 on the day of discharge. Consultation was placed to hematology/oncology. He is to start neoadjuvant chemotherapy following hospital discharge. Discharge Information Condition at Discharge: Improved Follow Up: Weeks Disposition/Orders: D/C to Home w/ HH Scheduled Pantoprazole Sodium (Pantoprazole Sodium ) 40 Mg Tablet.dr, 40 MG PO DAILYAC for GERD for 30 Days, #30 Ref 2 Prescribed by: ADORE JOHNSON MD on 08/14/204 Last Action: Continued on 08/24/20 015 by DANIEL MOSELEY Scheduled PRN Aspirin/Caffeine ( Pain Relief Powder Packet) 1 Each Powd.pack, 1 EACH PO Q6HRS PRN for PAIN, (Reported) Entered as Reported by: DANIEL MOSELEY on 08/24/2015 Last Taken: Unknown Dose on 08/23/20 Last Action: New Order on 08/24/2015 by DANIEL MOSELEY Justicifation of Admission Dx: Justifications for Admission: Justification of Admission Dx: Yes MEGHANA LACY MD Aug 26, 2020 09:45
[2020-08-26] MEDS ORDERED: HEPARIN PF 500 UNIT/5 ML DISP.SYRIN. IVP ONE (10:30)
--- NOTE | 2020-08-26 10:30 | NUR ---
SW following. Discussed with RN, pt from home alone (has children who can help), room air, regular diet. Pt scheduled to start chemo tomorrow (08/27/2020). Discharge order for home with self care. SW consult for pt being interested in Home Health - MAKAYLA spoke with Dr. Enriquez, explained not being able to find home health for pt's insurance lately due to not many companies taking it, and the ones that do being at capacity for this insurance. Dr. Enriquez stated it is fine for pt to go home without home health, because pt may not even need it. MAKAYLA spoke with RN, advised pt to try through his PCP in the new year. MAKAYLA will continue to follow.
--- NOTE | 2020-08-26 11:39 | NUR ---
patient discharged home with son. meds and follow up reviewed including appointment w/ cancer center tomorrow 08/27 @ 1100 instead of 0800. pt and family v/u. Dr. Quintana to provide script for tramadol, per Jaquan w/ Cancer center office. port hep locked and de-accessed. pt stable upon dc.
== END 2020-08-26 11:42 | disposition home health service (06) | DRG 377 ==
LOC: ER 13:54 → ED HOLD 18:18 → 5 NORTH 22:31
PROVIDERS: ADMIT Internal Medicine; ATTEND Internal Medicine
PROC: 30233N1 Transfusion of Nonautologous Red Blood Cells into Peripheral Vein, Percutaneous Approach (ICD-10-PCS; principal; 2020-08-23)
DX: K62.5 Hemorrhage of anus and rectum (principal); E43 Unspecified severe protein-calorie malnutrition; C19 Malignant neoplasm of rectosigmoid junction; D62 Acute posthemorrhagic anemia; K21.9 Gastro-esophageal reflux disease without esophagitis; F17.200 Nicotine dependence, unspecified, uncomplicated; Z80.0 Family history of malignant neoplasm of digestive organs
CPT/HCPCS: 36415; 80048; 80053; 85025; 86850; 86900; 86901; 86920; 99285; J1642; J2270; P9016; G0378

== ENCOUNTER → 2020-08-23 | Outpatient (CLI) | payer OTHER ==
[2020-08-22 11:10] VITALS: BP 117/60
[~2020-08-23] MED LIST changes: +ASPI1POW PO; +SIME80TA14 PO
[2020-08-23 12:39] LABS: BASO # 0.1 x10^3/uL (0.0-0.2); BASO % 1 % (0-3); EOS # 0.2 x10^3/uL (0.0-0.7); EOS % 2 % (0-3); LYMPH # 2.7 x10^3/uL (1.0-4.8); LYMPH % 32 % (24-48); MEAN CORPUSCULAR HEMOGLOBIN 22 pg (25-35); MEAN CORPUSCULAR HGB CONC 32 g/dL (31-37); MEAN CORPUSCULAR VOLUME 70 fL (79-100); MONO # 0.6 x10^3/uL (0.0-1.1); MONO % 7 % (0-9); NEUT # 4.9 x10^3/uL (1.8-7.7); NEUT % 58 % (31-73); PLATELET COUNT 529 x10^3/uL (140-400); RED BLOOD COUNT 2.62 x10^6/uL (4.30-5.70); RED CELL DISTRIBUTION WIDTH 37.9 % (11.5-14.5); WHITE BLOOD COUNT 8.5 x10^3/uL (4.0-11.0)
[2020-08-23 12:43] LABS: HEMATOCRIT 18.3 % (39.0-53.0); HEMOGLOBIN 5.9 g/dL (13.0-17.5)
[2020-08-23 12:45] LABS: CALCIUM 8.2 mg/dL (8.5-10.1); CREATININE 0.8 mg/dL (0.7-1.3); GFR 114.3; POTASSIUM 4.5 mmol/L (3.5-5.1)
[2020-08-23 12:50] LABS: ALBUMIN 2.1 g/dL (3.4-5.0); ALBUMIN/GLOBULIN RATIO 0.5 (1.0-1.7); TOTAL BILIRUBIN 0.1 mg/dL (0.2-1.0); TOTAL PROTEIN 6.4 g/dL (6.4-8.2)
== END ==
LOC: ONCLAB 11:59
PROVIDERS: ATTEND Physician Assistant
DX: C19 Malignant neoplasm of rectosigmoid junction (principal)
CPT/HCPCS: 36415; 80053; 82378; 85025

== ENCOUNTER → 2020-09-02 | Outpatient (CLI) | payer OTHER ==
[2020-08-26 03:07] VITALS: BP 130/77
[~2020-09-02] MED LIST changes: +ASPI1POW PO; +IOHEXOL 300 MG/ML 100ML VIAL. IV ONE; +SIME80TA14 PO
--- NOTE | 2020-09-02 17:44 | RAD ---
Examination: CT ABDOMEN WITHOUT AND WITH IV CONTRAST History: Reason: LIVER PROTOCOL TO EVALUATE LIVER LESION / Spl. Instructions: IV OMNI 300 75 MLS / Hi story: Comparison/Correlation: 08/08/2020 CT abdomen and pelvis with contrast Findings: Axial images of the liver were obtained prior to and following IV contrast. Imaging was obt ained in the arterial phase, portal venous phase, and delayed phases. Scarring at the right posterior lung base is present and minimal. The hepatic dome, there is a 0.9 cm diameter by 0.5 cm low-attenuation lesion. This is unchanged comp ared to previous exam. At the subcapsular aspect of the right hepatic lobe on axial image 12 of serie s 4, there is a low-attenuation lesion which also stable compared to previous exam. More posteriorly at the hepatic dome, there is a punctate hypoenhancing lesion on axial image 10 of series 4. This is better delineated on series 5 axial image 10. Additional punctate lesion at the more inferior aspect right hepatic lobe in a subcapsular aspect on axial image 22 of series 4 is also present and stable. These do not appear to enhance upon correlation with precontrast series and delayed phase series. Portal vein is unremarkable. Spleen, adrenal glands, and right kidney are normal. Left kidney is unre markable. No enlarged upper abdominal lymph nodes. No ascites evident. Proximal right common iliac ar terial aneurysm measuring 1.3 cm diameter is present. It is not fully included for purposes of this e xam. Impression: Hepatic lesions are present and are too small to characterize but do not appear to enhance. These are most compatible with cysts or other benign process. For more definitive assessment of colon cancer m etastases to liver, consider MRI liver without and with contrast available. PQRS Compliance Statement: One or more of the following individualized dose reduction techniques were utilized for this examinat ion: 1. Automated exposure control 2. Adjustment of the mA and/or kV according to patient size 3. Use of iterative reconstruction technique Electronically signed by: Obey Roís MD (09/02/2020 5:42 PM) [id number]
== END ==
LOC: CT 10:40
PROVIDERS: ATTEND Radiology Radiation Oncology
DX: K76.9 Liver disease, unspecified (principal); I72.3 Aneurysm of iliac artery
CPT/HCPCS: 74170; Q9967

== ENCOUNTER → 2020-09-03 | Outpatient (CLI) | payer OTHER ==
[2020-08-26 03:07] VITALS: BP 130/77
[~2020-09-03] MED LIST changes: -IOHEXOL 300 MG/ML 100ML VIAL. IV ONE
[2020-09-03 08:41] LABS: BASO # 0.1 x10^3/uL (0.0-0.2); BASO % 1 % (0-3); EOS # 0.2 x10^3/uL (0.0-0.7); EOS % 2 % (0-3); LYMPH # 2.1 x10^3/uL (1.0-4.8); LYMPH % 29 % (24-48); MEAN CORPUSCULAR HEMOGLOBIN 23 pg (25-35); MEAN CORPUSCULAR HGB CONC 32 g/dL (31-37); MEAN CORPUSCULAR VOLUME 72 fL (79-100); MONO # 0.5 x10^3/uL (0.0-1.1); MONO % 6 % (0-9); NEUT # 4.5 x10^3/uL (1.8-7.7); NEUT % 62 % (31-73); PLATELET COUNT 434 x10^3/uL (140-400); RED BLOOD COUNT 2.65 x10^6/uL (4.30-5.70); RED CELL DISTRIBUTION WIDTH 34.9 % (11.5-14.5); WHITE BLOOD COUNT 7.2 x10^3/uL (4.0-11.0)
[2020-09-03 08:43] LABS: HEMATOCRIT 19.1 % (39.0-53.0); HEMOGLOBIN 6.1 g/dL (13.0-17.5)
[2020-09-03 08:52] LABS: CALCIUM 8.7 mg/dL (8.5-10.1); CREATININE 0.8 mg/dL (0.7-1.3); GFR 114.3; POTASSIUM 4.4 mmol/L (3.5-5.1)
[2020-09-03 08:55] LABS: ALBUMIN 2.2 g/dL (3.4-5.0); ALBUMIN/GLOBULIN RATIO 0.5 (1.0-1.7); TOTAL BILIRUBIN 0.1 mg/dL (0.2-1.0); TOTAL PROTEIN 6.7 g/dL (6.4-8.2)
[2020-09-03 11:47] LABS: PLT ESTIMATE INCREASED (ADEQUATE)
[2020-09-03 11:51] LABS: ANISOCYTOSIS MARKED; HYPOCHROMIA MOD; MICROCYTOSIS MOD; POIKILOCYTOSIS MARKED
[2020-09-03 11:52] LABS: OVALOCYTES OCC; TARGET CELLS OCC
[2020-09-03 11:53] LABS: SCHISTOCYTES FEW
== END ==
LOC: ONCLAB 08:24
PROVIDERS: ATTEND Internal Medicine Hematology & Oncology
DX: C19 Malignant neoplasm of rectosigmoid junction (principal)
CPT/HCPCS: 36415; 80053; 85025

== ENCOUNTER → 2020-09-10 | Outpatient (CLI) | payer OTHER ==
[2020-08-26 03:07] VITALS: BP 130/77
[~2020-09-10] MED LIST changes: +HYDR-2761 PO; +MIRT7.5T8 PO
[2020-09-10 11:36] LABS: BASO # 0.1 x10^3/uL (0.0-0.2); BASO % 1 % (0-3); EOS # 0.2 x10^3/uL (0.0-0.7); EOS % 2 % (0-3); LYMPH # 1.7 x10^3/uL (1.0-4.8); LYMPH % 19 % (24-48); MEAN CORPUSCULAR HEMOGLOBIN 25 pg (25-35); MEAN CORPUSCULAR HGB CONC 33 g/dL (31-37); MEAN CORPUSCULAR VOLUME 77 fL (79-100); MONO # 0.5 x10^3/uL (0.0-1.1); MONO % 5 % (0-9); NEUT # 6.2 x10^3/uL (1.8-7.7); NEUT % 73 % (31-73); PLATELET COUNT 412 x10^3/uL (140-400); RED BLOOD COUNT 2.66 x10^6/uL (4.30-5.70); WHITE BLOOD COUNT 8.6 x10^3/uL (4.0-11.0)
[2020-09-10 11:39] LABS: CALCIUM 8.6 mg/dL (8.5-10.1); CREATININE 0.9 mg/dL (0.7-1.3); GFR 99.8; POTASSIUM 4.1 mmol/L (3.5-5.1)
[2020-09-10 11:46] LABS: ALBUMIN 2.4 g/dL (3.4-5.0); ALBUMIN/GLOBULIN RATIO 0.5 (1.0-1.7); TOTAL BILIRUBIN 0.2 mg/dL (0.2-1.0); TOTAL PROTEIN 7.2 g/dL (6.4-8.2)
[2020-09-10 12:20] LABS: HEMATOCRIT 20.5 % (39.0-53.0); HEMOGLOBIN 6.7 g/dL (13.0-17.5)
[2020-09-10 12:21] LABS: RED CELL DISTRIBUTION WIDTH 34.9 % (11.5-14.5)
== END ==
LOC: ONCLAB 08:53
PROVIDERS: ATTEND Internal Medicine Hematology & Oncology
DX: C19 Malignant neoplasm of rectosigmoid junction (principal)
CPT/HCPCS: 36415; 80053; 85025

== ENCOUNTER → 2020-09-24 | Outpatient (CLI) | payer OTHER ==
[2020-08-26 03:07] VITALS: BP 130/77
[2020-09-24 10:25] LABS: BASO # 0.1 x10^3/uL (0.0-0.2); BASO % 1 % (0-3); EOS # 0.1 x10^3/uL (0.0-0.7); EOS % 3 % (0-3); HEMATOCRIT 24.8 % (39.0-53.0); HEMOGLOBIN 7.8 g/dL (13.0-17.5); LYMPH # 1.7 x10^3/uL (1.0-4.8); LYMPH % 34 % (24-48); MEAN CORPUSCULAR HEMOGLOBIN 25 pg (25-35); MEAN CORPUSCULAR HGB CONC 32 g/dL (31-37); MEAN CORPUSCULAR VOLUME 78 fL (79-100); MONO # 0.5 x10^3/uL (0.0-1.1); MONO % 9 % (0-9); NEUT # 2.7 x10^3/uL (1.8-7.7); NEUT % 53 % (31-73); PLATELET COUNT 329 x10^3/uL (140-400); RED BLOOD COUNT 3.17 x10^6/uL (4.30-5.70)
[2020-09-24 10:31] LABS: CALCIUM 8.6 mg/dL (8.5-10.1); GFR 88.4; POTASSIUM 4.4 mmol/L (3.5-5.1)
[2020-09-24 10:38] LABS: ALBUMIN 2.6 g/dL (3.4-5.0); ALBUMIN/GLOBULIN RATIO 0.6 (1.0-1.7); TOTAL BILIRUBIN 0.3 mg/dL (0.2-1.0); TOTAL PROTEIN 7.2 g/dL (6.4-8.2)
[2020-09-24 12:56] LABS: ANISOCYTOSIS PRESENT; HYPOCHROMIA PRESENT; PLT ESTIMATE ADEQUATE (ADEQUATE); POLYCHROMASIA PRESENT
== END ==
LOC: ONCLAB 10:06
PROVIDERS: ATTEND Internal Medicine Hematology & Oncology
DX: C19 Malignant neoplasm of rectosigmoid junction (principal)
CPT/HCPCS: 36415; 80053; 85025

== ENCOUNTER → 2020-10-08 | Outpatient (CLI) | payer OTHER ==
[2020-10-08 10:30] LABS: BASO # 0.1 x10^3/uL (0.0-0.2); BASO % 1 % (0-3); EOS # 0.5 x10^3/uL (0.0-0.7); EOS % 8 % (0-3); HEMATOCRIT 27.9 % (39.0-53.0); LYMPH # 0.8 x10^3/uL (1.0-4.8); LYMPH % 14 % (24-48); MEAN CORPUSCULAR HEMOGLOBIN 25 pg (25-35); MEAN CORPUSCULAR HGB CONC 32 g/dL (31-37); MEAN CORPUSCULAR VOLUME 78 fL (79-100); MONO # 0.6 x10^3/uL (0.0-1.1); MONO % 11 % (0-9); NEUT # 3.9 x10^3/uL (1.8-7.7); NEUT % 66 % (31-73); PLATELET COUNT 233 x10^3/uL (140-400); RED BLOOD COUNT 3.56 x10^6/uL (4.30-5.70); RED CELL DISTRIBUTION WIDTH 27.3 % (11.5-14.5); WHITE BLOOD COUNT 5.9 x10^3/uL (4.0-11.0)
[2020-10-08 10:52] LABS: CALCIUM 8.9 mg/dL (8.5-10.1); CREATININE 0.9 mg/dL (0.7-1.3); GFR 99.8; POTASSIUM 4.5 mmol/L (3.5-5.1)
[2020-10-08 11:00] LABS: ALBUMIN 2.8 g/dL (3.4-5.0); ALBUMIN/GLOBULIN RATIO 0.6 (1.0-1.7); TOTAL BILIRUBIN 0.2 mg/dL (0.2-1.0); TOTAL PROTEIN 7.5 g/dL (6.4-8.2)
[2020-10-08 11:05] LABS: % BANDS 1 % (0-9); % EOS 7 % (0-5); % LYMPHS 6 % (24-48); % MONOS 5 % (0-10); % SEGS 81 % (35-66); PLT ESTIMATE ADEQUATE (ADEQUATE)
[2020-10-08 11:06] LABS: ANISOCYTOSIS MOD; BIZZARE CELLS FEW; POIKILOCYTOSIS SLIGHT
[2020-10-08 11:07] LABS: HELMET CELLS OCC
== END ==
LOC: ONCLAB 10:16
PROVIDERS: ATTEND Internal Medicine Hematology & Oncology
DX: C19 Malignant neoplasm of rectosigmoid junction (principal)
CPT/HCPCS: 36415; 80053; 82378; 85007; 85025

== ENCOUNTER → 2020-10-11 | Outpatient (CLI) | payer OTHER ==
[~2020-10-11] MED LIST changes: +IOHEXOL 240 MG/ML 50ML VIAL. PO ONE; +IOHEXOL 300 MG/ML 100ML VIAL. IV ONE
--- NOTE | 2020-10-11 18:01 | RAD ---
EXAM: CT Abdomen and Pelvis with IV contrast INDICATION: Reason: COLON CA / Spl. Instructions: omni 300 75ml omni 240 50ml / History: TECHNIQUE: Multi-detector row CT images were acquired from the lung bases through the abdomen and pel vis with the use of IV contrast. Sagittal and coronal images were acquired from the transaxial data. All CT scans performed at this facility utilize dose optimization techniques as appropriate to the ex am, including the following: Automated exposure control and adjustment of the mA and/or KV according to patient size (this includes techniques or standardized protocols for targeted exams where dose is indication/reason for exam). IV CONTRAST: Administered ORAL CONTRAST: Administered COMPARISON: Abdomen CT with IV contrast of 09/02/2020 FINDINGS: LOWER CHEST: Unremarkable LIVER: Similar-appearing multiple low-density lesions in the right hepatic lobe within segment 7 are unchanged and statistically likely to be cysts but incompletely characterized. Largest measures 9 mm . The remainder are less than 5 mm in size. No ring-enhancing or solid enhancing hepatic lesions. BILIARY SYSTEM: Gallbladder is unremarkable. Bile ducts are not dilated. PANCREAS: Unremarkable SPLEEN: Unremarkable ADRENALS: Unremarkable KIDNEYS & URETERS: Unremarkable BLADDER: Unremarkable REPRODUCTIVE ORGANS: Unremarkable GASTROINTESTINAL: There are no findings of bowel perforation or obstruction. There is evidence of a l arge, high showing loss of tissue planes between the rectal wall and the seminal vesicles. Tympanic i s not well seen but there are no findings of acute appendicitis. MESENTERY/PERITONEUM/RETROPERITONEUM: Unremarkable VASCULAR: Extensive arterial calcifications. No abdominal aortic aneurysm. LYMPH NODES: No adenopathy OSSEOUS & SOFT TISSUES: There is perirectal soft tissue stranding in the pelvis. No organized fluid collection. No acute or aggressive appearing bony lesions. IMPRESSION: 1. CT findings are suggestive of a high rectal locally advanced cancer that would be better evaluated on MRI if clinically warranted. There is concern for possible seminal vesicle involvement. 2. There are low-density lesions in the liver that are unchanged from the previous examination and th us unlikely to represent active or progressing metastatic disease. MRI could be considered in further characterization if clinically warranted. Electronically signed by: Isma Almendarez MD (10/11/2020 5:59 PM) [id number]
== END ==
LOC: CT 10:34
PROVIDERS: ATTEND Internal Medicine Hematology & Oncology
DX: C19 Malignant neoplasm of rectosigmoid junction (principal); K76.9 Liver disease, unspecified
CPT/HCPCS: 74177; Q9966; Q9967

== ENCOUNTER → 2020-10-17 | Outpatient (CLI) | payer OTHER ==
[~2020-10-17] MED LIST changes: -HYDR-2761 PO; -IOHEXOL 240 MG/ML 50ML VIAL. PO ONE; -IOHEXOL 300 MG/ML 100ML VIAL. IV ONE; -MIRT7.5T8 PO
[2020-10-17 13:45] LABS: BASO # 0.1 x10^3/uL (0.0-0.2); BASO % 2 % (0-3); EOS # 0.6 x10^3/uL (0.0-0.7); EOS % 15 % (0-3); HEMATOCRIT 28.5 % (39.0-53.0); HEMOGLOBIN 9.4 g/dL (13.0-17.5); LYMPH % 26 % (24-48); MEAN CORPUSCULAR HEMOGLOBIN 26 pg (25-35); MEAN CORPUSCULAR HGB CONC 33 g/dL (31-37); MEAN CORPUSCULAR VOLUME 78 fL (79-100); MONO # 0.5 x10^3/uL (0.0-1.1); MONO % 12 % (0-9); NEUT # 1.7 x10^3/uL (1.8-7.7); NEUT % 46 % (31-73); PLATELET COUNT 241 x10^3/uL (140-400); RED BLOOD COUNT 3.63 x10^6/uL (4.30-5.70); WHITE BLOOD COUNT 3.8 x10^3/uL (4.0-11.0)
[2020-10-17 13:52] LABS: CALCIUM 9.4 mg/dL (8.5-10.1); GFR 88.4
[2020-10-17 13:59] LABS: ALBUMIN 2.8 g/dL (3.4-5.0); ALBUMIN/GLOBULIN RATIO 0.6 (1.0-1.7); TOTAL BILIRUBIN 0.2 mg/dL (0.2-1.0); TOTAL PROTEIN 7.7 g/dL (6.4-8.2)
[2020-10-17 14:12] LABS: ANISOCYTOSIS MOD; PLT ESTIMATE ADEQUATE (ADEQUATE)
[2020-10-17 14:13] LABS: HYPOCHROMIA MOD; MICROCYTOSIS SLIGHT; OVALOCYTES FEW; TARGET CELLS FEW
== END ==
LOC: ONCLAB 13:14
PROVIDERS: ATTEND Physician Assistant
DX: C19 Malignant neoplasm of rectosigmoid junction (principal)
CPT/HCPCS: 36415; 80053; 82378; 85025

== ENCOUNTER → 2020-10-29 | Outpatient (CLI) | payer OTHER ==
[2020-10-29 11:10] LABS: CALCIUM 8.9 mg/dL (8.5-10.1); CREATININE 0.9 mg/dL (0.7-1.3); GFR 99.8; POTASSIUM 4.1 mmol/L (3.5-5.1)
[2020-10-29 11:16] LABS: ALBUMIN 2.7 g/dL (3.4-5.0); ALBUMIN/GLOBULIN RATIO 0.5 (1.0-1.7); TOTAL BILIRUBIN 0.2 mg/dL (0.2-1.0); TOTAL PROTEIN 7.7 g/dL (6.4-8.2)
[2020-10-29 11:17] LABS: BASO # 0.1 x10^3/uL (0.0-0.2); BASO % 1 % (0-3); EOS # 0.2 x10^3/uL (0.0-0.7); EOS % 4 % (0-3); HEMATOCRIT 31.2 % (39.0-53.0); HEMOGLOBIN 10.2 g/dL (13.0-17.5); LYMPH # 0.8 x10^3/uL (1.0-4.8); LYMPH % 16 % (24-48); MEAN CORPUSCULAR HEMOGLOBIN 27 pg (25-35); MEAN CORPUSCULAR HGB CONC 33 g/dL (31-37); MEAN CORPUSCULAR VOLUME 81 fL (79-100); MONO # 0.8 x10^3/uL (0.0-1.1); MONO % 16 % (0-9); NEUT # 3.1 x10^3/uL (1.8-7.7); NEUT % 62 % (31-73); PLATELET COUNT 358 x10^3/uL (140-400); RED BLOOD COUNT 3.84 x10^6/uL (4.30-5.70); RED CELL DISTRIBUTION WIDTH 26.2 % (11.5-14.5)
== END ==
LOC: ONCLAB 10:40
PROVIDERS: ATTEND Physician Assistant
DX: C19 Malignant neoplasm of rectosigmoid junction (principal)
CPT/HCPCS: 36415; 80053; 82378; 85025

== ENCOUNTER → 2020-11-05 | Outpatient (CLI) | payer OTHER ==
[2020-11-05 11:55] LABS: BASO # 0.1 x10^3/uL (0.0-0.2); BASO % 2 % (0-3); EOS # 0.2 x10^3/uL (0.0-0.7); EOS % 4 % (0-3); HEMATOCRIT 30.6 % (39.0-53.0); HEMOGLOBIN 10.1 g/dL (13.0-17.5); LYMPH # 0.8 x10^3/uL (1.0-4.8); LYMPH % 17 % (24-48); MEAN CORPUSCULAR HEMOGLOBIN 27 pg (25-35); MEAN CORPUSCULAR HGB CONC 33 g/dL (31-37); MEAN CORPUSCULAR VOLUME 81 fL (79-100); MONO # 0.5 x10^3/uL (0.0-1.1); MONO % 11 % (0-9); NEUT % 66 % (31-73); PLATELET COUNT 213 x10^3/uL (140-400); RED BLOOD COUNT 3.78 x10^6/uL (4.30-5.70); RED CELL DISTRIBUTION WIDTH 24.7 % (11.5-14.5); WHITE BLOOD COUNT 4.5 x10^3/uL (4.0-11.0)
[2020-11-05 12:02] LABS: CALCIUM 8.5 mg/dL (8.5-10.1); CREATININE 0.9 mg/dL (0.7-1.3); GFR 99.8; POTASSIUM 4.1 mmol/L (3.5-5.1)
== END ==
LOC: ONCLAB 11:32
PROVIDERS: ATTEND Physician Assistant
DX: C19 Malignant neoplasm of rectosigmoid junction (principal)
CPT/HCPCS: 36415; 80048; 85025

== ENCOUNTER → 2020-11-12 | Outpatient (CLI) | payer OTHER ==
[2020-11-12 11:00] LABS: BASO # 0.1 x10^3/uL (0.0-0.2); BASO % 1 % (0-3); EOS # 0.6 x10^3/uL (0.0-0.7); EOS % 11 % (0-3); HEMATOCRIT 31.3 % (39.0-53.0); HEMOGLOBIN 10.1 g/dL (13.0-17.5); LYMPH # 0.8 x10^3/uL (1.0-4.8); LYMPH % 16 % (24-48); MEAN CORPUSCULAR HEMOGLOBIN 27 pg (25-35); MEAN CORPUSCULAR HGB CONC 32 g/dL (31-37); MEAN CORPUSCULAR VOLUME 82 fL (79-100); MONO # 0.7 x10^3/uL (0.0-1.1); MONO % 13 % (0-9); NEUT % 58 % (31-73); PLATELET COUNT 235 x10^3/uL (140-400); RED BLOOD COUNT 3.82 x10^6/uL (4.30-5.70); RED CELL DISTRIBUTION WIDTH 23.9 % (11.5-14.5); WHITE BLOOD COUNT 5.2 x10^3/uL (4.0-11.0)
[2020-11-12 11:06] LABS: CALCIUM 8.6 mg/dL (8.5-10.1); GFR 88.4; POTASSIUM 4.1 mmol/L (3.5-5.1)
[2020-11-12 11:12] LABS: ALBUMIN 2.6 g/dL (3.4-5.0); ALBUMIN/GLOBULIN RATIO 0.5 (1.0-1.7); TOTAL BILIRUBIN 0.2 mg/dL (0.2-1.0); TOTAL PROTEIN 7.6 g/dL (6.4-8.2)
== END ==
LOC: ONCLAB 10:38
PROVIDERS: ATTEND Internal Medicine Hematology & Oncology
DX: C19 Malignant neoplasm of rectosigmoid junction (principal)
CPT/HCPCS: 36415; 80053; 82378; 85025

== ENCOUNTER → 2020-11-25 | Outpatient (CLI) | payer OTHER ==
[2020-11-25 08:53] LABS: BASO % 1 % (0-3); EOS # 0.3 x10^3/uL (0.0-0.7); EOS % 7 % (0-3); HEMATOCRIT 31.6 % (39.0-53.0); HEMOGLOBIN 10.4 g/dL (13.0-17.5); LYMPH # 0.7 x10^3/uL (1.0-4.8); LYMPH % 17 % (24-48); MEAN CORPUSCULAR HEMOGLOBIN 27 pg (25-35); MEAN CORPUSCULAR HGB CONC 33 g/dL (31-37); MEAN CORPUSCULAR VOLUME 83 fL (79-100); MONO # 0.7 x10^3/uL (0.0-1.1); MONO % 17 % (0-9); NEUT # 2.4 x10^3/uL (1.8-7.7); NEUT % 59 % (31-73); PLATELET COUNT 193 x10^3/uL (140-400); RED BLOOD COUNT 3.82 x10^6/uL (4.30-5.70); RED CELL DISTRIBUTION WIDTH 23.1 % (11.5-14.5)
[2020-11-25 09:12] LABS: CALCIUM 8.9 mg/dL (8.5-10.1); CREATININE 0.9 mg/dL (0.7-1.3); GFR 99.8; POTASSIUM 4.3 mmol/L (3.5-5.1)
[2020-11-25 09:29] LABS: ALBUMIN 2.6 g/dL (3.4-5.0); ALBUMIN/GLOBULIN RATIO 0.5 (1.0-1.7); TOTAL BILIRUBIN 0.2 mg/dL (0.2-1.0); TOTAL PROTEIN 7.6 g/dL (6.4-8.2)
== END ==
LOC: ONCLAB 08:11
PROVIDERS: ATTEND Internal Medicine Hematology & Oncology
DX: C19 Malignant neoplasm of rectosigmoid junction (principal)
CPT/HCPCS: 36415; 80053; 82378; 82728; 83540; 83550; 85025

== ENCOUNTER → 2020-12-02 | Outpatient (CLI) | payer OTHER ==
[2020-12-02 10:34] LABS: BASO % 2 % (0-3); EOS # 0.2 x10^3/uL (0.0-0.7); EOS % 6 % (0-3); HEMATOCRIT 32.1 % (39.0-53.0); HEMOGLOBIN 10.5 g/dL (13.0-17.5); LYMPH # 0.5 x10^3/uL (1.0-4.8); LYMPH % 17 % (24-48); MEAN CORPUSCULAR HEMOGLOBIN 27 pg (25-35); MEAN CORPUSCULAR HGB CONC 33 g/dL (31-37); MEAN CORPUSCULAR VOLUME 83 fL (79-100); MONO # 0.5 x10^3/uL (0.0-1.1); MONO % 18 % (0-9); NEUT # 1.7 x10^3/uL (1.8-7.7); NEUT % 58 % (31-73); PLATELET COUNT 282 x10^3/uL (140-400); RED BLOOD COUNT 3.86 x10^6/uL (4.30-5.70); RED CELL DISTRIBUTION WIDTH 20.4 % (11.5-14.5); WHITE BLOOD COUNT 2.9 x10^3/uL (4.0-11.0)
[2020-12-02 10:48] LABS: CALCIUM 8.9 mg/dL (8.5-10.1); CREATININE 0.9 mg/dL (0.7-1.3); GFR 99.8; POTASSIUM 3.7 mmol/L (3.5-5.1)
[2020-12-02 10:50] LABS: ALBUMIN 2.7 g/dL (3.4-5.0); ALBUMIN/GLOBULIN RATIO 0.5 (1.0-1.7); TOTAL BILIRUBIN 0.2 mg/dL (0.2-1.0); TOTAL PROTEIN 7.7 g/dL (6.4-8.2)
== END ==
LOC: ONCLAB 09:59
PROVIDERS: ATTEND Internal Medicine Hematology & Oncology
DX: C19 Malignant neoplasm of rectosigmoid junction (principal)
CPT/HCPCS: 36415; 80053; 82378; 85025

== ENCOUNTER → 2020-12-09 | Outpatient (CLI) | payer OTHER ==
[2020-12-09 13:13] LABS: BASO # 0.1 x10^3/uL (0.0-0.2); BASO % 1 % (0-3); EOS # 0.3 x10^3/uL (0.0-0.7); EOS % 3 % (0-3); HEMATOCRIT 33.1 % (39.0-53.0); HEMOGLOBIN 10.7 g/dL (13.0-17.5); LYMPH # 0.5 x10^3/uL (1.0-4.8); LYMPH % 5 % (24-48); MEAN CORPUSCULAR HEMOGLOBIN 27 pg (25-35); MEAN CORPUSCULAR HGB CONC 32 g/dL (31-37); MEAN CORPUSCULAR VOLUME 84 fL (79-100); MONO # 0.8 x10^3/uL (0.0-1.1); MONO % 9 % (0-9); NEUT # 7.4 x10^3/uL (1.8-7.7); NEUT % 83 % (31-73); PLATELET COUNT 207 x10^3/uL (140-400); RED BLOOD COUNT 3.95 x10^6/uL (4.30-5.70); RED CELL DISTRIBUTION WIDTH 20.4 % (11.5-14.5); WHITE BLOOD COUNT 8.9 x10^3/uL (4.0-11.0)
[2020-12-09 13:23] LABS: CALCIUM 9.1 mg/dL (8.5-10.1); GFR 88.4; POTASSIUM 3.8 mmol/L (3.5-5.1)
[2020-12-09 13:29] LABS: ALBUMIN 2.7 g/dL (3.4-5.0); ALBUMIN/GLOBULIN RATIO 0.5 (1.0-1.7); TOTAL BILIRUBIN 0.2 mg/dL (0.2-1.0); TOTAL PROTEIN 7.9 g/dL (6.4-8.2)
== END ==
LOC: ONCLAB 12:58
PROVIDERS: ATTEND Internal Medicine Hematology & Oncology
DX: C19 Malignant neoplasm of rectosigmoid junction (principal)
CPT/HCPCS: 36415; 80053; 82378; 85025

== ENCOUNTER → 2020-12-16 | Outpatient (CLI) | payer OTHER ==
[2020-12-16 13:14] LABS: BASO % 1 % (0-3); EOS # 0.3 x10^3/uL (0.0-0.7); EOS % 6 % (0-3); HEMATOCRIT 32.9 % (39.0-53.0); HEMOGLOBIN 10.8 g/dL (13.0-17.5); LYMPH # 0.3 x10^3/uL (1.0-4.8); LYMPH % 5 % (24-48); MEAN CORPUSCULAR HEMOGLOBIN 28 pg (25-35); MEAN CORPUSCULAR HGB CONC 33 g/dL (31-37); MEAN CORPUSCULAR VOLUME 85 fL (79-100); MONO # 0.5 x10^3/uL (0.0-1.1); MONO % 9 % (0-9); NEUT # 4.5 x10^3/uL (1.8-7.7); NEUT % 80 % (31-73); PLATELET COUNT 235 x10^3/uL (140-400); RED CELL DISTRIBUTION WIDTH 19.8 % (11.5-14.5); WHITE BLOOD COUNT 5.7 x10^3/uL (4.0-11.0)
[2020-12-16 13:39] LABS: CREATININE 1.1 mg/dL (0.7-1.3); GFR 79.2; POTASSIUM 4.4 mmol/L (3.5-5.1)
[2020-12-16 13:45] LABS: ALBUMIN 2.7 g/dL (3.4-5.0); ALBUMIN/GLOBULIN RATIO 0.5 (1.0-1.7); TOTAL BILIRUBIN 0.3 mg/dL (0.2-1.0); TOTAL PROTEIN 8.3 g/dL (6.4-8.2)
[2020-12-16 15:35] LABS: % BANDS 1 % (0-9); % BASOS 1 % (0-3); % EOS 8 % (0-5); % LYMPHS 3 % (24-48); % MONOS 9 % (0-10); % SEGS 78 % (35-66); ANISOCYTOSIS SLIGHT; OVALOCYTES FEW; PLT ESTIMATE ADEQUATE (ADEQUATE); SCHISTOCYTES OCC; SPHEROCYTES OCC
[2020-12-16 15:38] LABS: ROULEAUX PRESENT
== END ==
LOC: ONCLAB 11:35
PROVIDERS: ATTEND Physician Assistant
DX: C19 Malignant neoplasm of rectosigmoid junction (principal)
CPT/HCPCS: 36415; 80053; 82378; 85007; 85025

== ENCOUNTER → 2020-12-23 | Outpatient (CLI) | payer OTHER ==
[2020-12-23 11:56] LABS: CALCIUM 8.9 mg/dL (8.5-10.1); CREATININE 0.9 mg/dL (0.7-1.3); GFR 99.8; POTASSIUM 3.9 mmol/L (3.5-5.1)
[2020-12-23 11:57] LABS: BASO % 1 % (0-3); EOS # 0.3 x10^3/uL (0.0-0.7); EOS % 6 % (0-3); HEMATOCRIT 30.4 % (39.0-53.0); HEMOGLOBIN 10.1 g/dL (13.0-17.5); LYMPH # 0.3 x10^3/uL (1.0-4.8); LYMPH % 6 % (24-48); MEAN CORPUSCULAR HEMOGLOBIN 28 pg (25-35); MEAN CORPUSCULAR HGB CONC 33 g/dL (31-37); MEAN CORPUSCULAR VOLUME 85 fL (79-100); MONO # 0.6 x10^3/uL (0.0-1.1); MONO % 14 % (0-9); NEUT # 3.4 x10^3/uL (1.8-7.7); NEUT % 74 % (31-73); PLATELET COUNT 331 x10^3/uL (140-400); RED BLOOD COUNT 3.55 x10^6/uL (4.30-5.70); WHITE BLOOD COUNT 4.6 x10^3/uL (4.0-11.0)
[2020-12-23 12:14] LABS: ALBUMIN 2.5 g/dL (3.4-5.0); ALBUMIN/GLOBULIN RATIO 0.5 (1.0-1.7); TOTAL BILIRUBIN 0.4 mg/dL (0.2-1.0)
[2020-12-23 13:25] LABS: % BANDS 1 % (0-9); % BASOS 1 % (0-3); % EOS 6 % (0-5); % LYMPHS 8 % (24-48); % MONOS 12 % (0-10); % SEGS 72 % (35-66)
[2020-12-23 13:26] LABS: ANISOCYTOSIS SLIGHT; PLT ESTIMATE ADEQUATE (ADEQUATE)
== END ==
LOC: ONCLAB 11:14
PROVIDERS: ATTEND Internal Medicine Hematology & Oncology
DX: C19 Malignant neoplasm of rectosigmoid junction (principal)
CPT/HCPCS: 36415; 80053; 82378; 82728; 83540; 83550; 85007; 85025

== ENCOUNTER → 2020-12-30 | Outpatient (CLI) | payer OTHER ==
[2020-12-30 11:19] LABS: CALCIUM 8.9 mg/dL (8.5-10.1); CREATININE 1.1 mg/dL (0.7-1.3); GFR 79.2; POTASSIUM 4.2 mmol/L (3.5-5.1)
[2020-12-30 11:28] LABS: ALBUMIN 2.7 g/dL (3.4-5.0); ALBUMIN/GLOBULIN RATIO 0.5 (1.0-1.7); TOTAL BILIRUBIN 0.3 mg/dL (0.2-1.0); TOTAL PROTEIN 7.8 g/dL (6.4-8.2)
[2020-12-30 11:42] LABS: BASO % 0 % (0-3); EOS # 0.6 x10^3/uL (0.0-0.7); EOS % 12 % (0-3); HEMATOCRIT 29.7 % (39.0-53.0); HEMOGLOBIN 9.8 g/dL (13.0-17.5); LYMPH # 0.2 x10^3/uL (1.0-4.8); LYMPH % 4 % (24-48); MEAN CORPUSCULAR HEMOGLOBIN 28 pg (25-35); MEAN CORPUSCULAR HGB CONC 33 g/dL (31-37); MEAN CORPUSCULAR VOLUME 86 fL (79-100); MONO # 0.7 x10^3/uL (0.0-1.1); MONO % 14 % (0-9); NEUT # 3.5 x10^3/uL (1.8-7.7); NEUT % 69 % (31-73); PLATELET COUNT 320 x10^3/uL (140-400); RED BLOOD COUNT 3.47 x10^6/uL (4.30-5.70); RED CELL DISTRIBUTION WIDTH 18.9 % (11.5-14.5)
== END ==
LOC: ONCLAB 10:01
PROVIDERS: ATTEND Physician Assistant
DX: C19 Malignant neoplasm of rectosigmoid junction (principal); C20 Malignant neoplasm of rectum
CPT/HCPCS: 36415; 80053; 82378; 85025

== ENCOUNTER → 2021-01-06 | Outpatient (CLI) | payer OTHER ==
[2021-01-06 14:45] LABS: BASO % 1 % (0-3); EOS # 0.3 x10^3/uL (0.0-0.7); EOS % 6 % (0-3); HEMATOCRIT 28.5 % (39.0-53.0); HEMOGLOBIN 9.3 g/dL (13.0-17.5); LYMPH # 0.2 x10^3/uL (1.0-4.8); LYMPH % 5 % (24-48); MEAN CORPUSCULAR HEMOGLOBIN 28 pg (25-35); MEAN CORPUSCULAR HGB CONC 33 g/dL (31-37); MEAN CORPUSCULAR VOLUME 86 fL (79-100); MONO # 0.6 x10^3/uL (0.0-1.1); MONO % 12 % (0-9); NEUT # 3.8 x10^3/uL (1.8-7.7); NEUT % 76 % (31-73); PLATELET COUNT 302 x10^3/uL (140-400); RED BLOOD COUNT 3.31 x10^6/uL (4.30-5.70); RED CELL DISTRIBUTION WIDTH 18.7 % (11.5-14.5)
[2021-01-06 14:49] LABS: CALCIUM 8.7 mg/dL (8.5-10.1); CREATININE 0.9 mg/dL (0.7-1.3); GFR 99.8; POTASSIUM 3.9 mmol/L (3.5-5.1)
[2021-01-06 14:54] LABS: ALBUMIN 2.3 g/dL (3.4-5.0); ALBUMIN/GLOBULIN RATIO 0.5 (1.0-1.7); TOTAL BILIRUBIN 0.1 mg/dL (0.2-1.0); TOTAL PROTEIN 6.9 g/dL (6.4-8.2)
== END ==
LOC: ONCLAB 14:15
PROVIDERS: ATTEND Internal Medicine Hematology & Oncology
DX: C19 Malignant neoplasm of rectosigmoid junction (principal)
CPT/HCPCS: 36415; 80053; 82378; 85025

== ENCOUNTER → 2021-01-22 | Outpatient (CLI) | payer OTHER ==
[2021-01-22 11:36] LABS: BASO % 1 % (0-3); EOS # 0.1 x10^3/uL (0.0-0.7); EOS % 4 % (0-3); HEMATOCRIT 30.4 % (39.0-53.0); HEMOGLOBIN 9.8 g/dL (13.0-17.5); LYMPH # 0.4 x10^3/uL (1.0-4.8); LYMPH % 12 % (24-48); MEAN CORPUSCULAR HEMOGLOBIN 29 pg (25-35); MEAN CORPUSCULAR HGB CONC 32 g/dL (31-37); MEAN CORPUSCULAR VOLUME 89 fL (79-100); MONO # 0.5 x10^3/uL (0.0-1.1); MONO % 13 % (0-9); NEUT # 2.5 x10^3/uL (1.8-7.7); NEUT % 70 % (31-73); PLATELET COUNT 314 x10^3/uL (140-400); RED BLOOD COUNT 3.43 x10^6/uL (4.30-5.70); RED CELL DISTRIBUTION WIDTH 18.9 % (11.5-14.5); WHITE BLOOD COUNT 3.6 x10^3/uL (4.0-11.0)
[2021-01-22 11:43] LABS: CALCIUM 8.5 mg/dL (8.5-10.1); CREATININE 0.9 mg/dL (0.7-1.3); GFR 99.8; POTASSIUM 4.4 mmol/L (3.5-5.1)
[2021-01-22 11:49] LABS: ALBUMIN 2.7 g/dL (3.4-5.0); ALBUMIN/GLOBULIN RATIO 0.6 (1.0-1.7); TOTAL BILIRUBIN 0.4 mg/dL (0.2-1.0); TOTAL PROTEIN 7.5 g/dL (6.4-8.2)
== END ==
LOC: ONCLAB 11:17
PROVIDERS: ATTEND Physician Assistant
DX: C19 Malignant neoplasm of rectosigmoid junction (principal)
CPT/HCPCS: 36415; 80053; 85025

== ENCOUNTER → 2021-01-29 | Outpatient (CLI) | payer OTHER ==
[~2021-01-29] MED LIST changes: +GADOTERATE 5 MMOL/10ML VIAL. IVP ONE
--- NOTE | 2021-01-30 12:00 | RAD ---
EXAM: MRI PELVIS WITH AND WITHOUT CONTRAST. HISTORY: Rectal cancer, restaging after treatment. TECHNIQUE: MRI of the pelvis was performed before and after the intravenous administration of gadolin ium contrast. [employer] Journal of Roentgenology. 2015;205: [id number]. COMPARISON: 10/15/2019, 10/11/2020. FINDINGS: Prior imaging stage: T4b: Tumor directly invades or is adhered to other organs or structures. A rectal mass begins 6.8 cm proximal to the anorectal angle and extends proximally by 2.6 cm. The sta ging scheme for high-mid rectal tumors is thus used. Tumor involvement is circumferential. The mass s traddles the anterior peritoneal reflection. The anterior peritoneal reflection is involved. Size: Decreased. The region of wall thickening has also completely resolved and is now scarlike. Diffusion restriction: Resolved. Enhancement: Decreased. Imaging characteristics indicate current stage: T4b: Tumor directly invades or is adhered to other or geri or structures. The mass remains adherent to the anterior peritoneal reflection and the posterior aspect of the right greater than left seminal vesicles. Involvement is now scarlike rather than mass like. Mesorectal node status: N0: No regional lymph node metastases. No definitively involved nodes are see n. Extramesorectal luzmaria involvement is not identified. Extramural venous invasion is not identified. There is mucosal thickening throughout the visualized sigmoid colon, worst just proximal to the mass. IMPRESSION: 1. Regression grade 2: Good response, dense fibrosis or mucin; no obvious residual tumor. The region of involvement is now scarlike. 2. Imaging characteristics imply current stage T4b. The involved segment of the rectum remains adhere nt to the posterior aspect of the right greater than left seminal vesicles and anterior peritoneal re flection, but involvement is now scarlike rather than masslike. Electronically signed by: Roberto Sprague MD (01/30/2021 11:58 AM) [facility]
== END ==
LOC: MRI 10:00
PROVIDERS: ATTEND Internal Medicine Hematology & Oncology
DX: C19 Malignant neoplasm of rectosigmoid junction (principal)
CPT/HCPCS: 72197; A9575

== ENCOUNTER → 2021-01-29 | Outpatient (CLI) | payer OTHER ==
[~2021-01-29] MED LIST changes: -GADOTERATE 5 MMOL/10ML VIAL. IVP ONE
[2021-01-29 16:03] LABS: BASO % 1 % (0-3); EOS # 0.1 x10^3/uL (0.0-0.7); EOS % 4 % (0-3); HEMATOCRIT 30.2 % (39.0-53.0); LYMPH # 0.5 x10^3/uL (1.0-4.8); LYMPH % 12 % (24-48); MEAN CORPUSCULAR HEMOGLOBIN 30 pg (25-35); MEAN CORPUSCULAR HGB CONC 33 g/dL (31-37); MEAN CORPUSCULAR VOLUME 89 fL (79-100); MONO # 0.5 x10^3/uL (0.0-1.1); MONO % 13 % (0-9); NEUT # 2.8 x10^3/uL (1.8-7.7); NEUT % 71 % (31-73); PLATELET COUNT 279 x10^3/uL (140-400)
[2021-01-29 16:16] LABS: CALCIUM 8.5 mg/dL (8.5-10.1); CREATININE 0.9 mg/dL (0.7-1.3); GFR 99.8; POTASSIUM 3.5 mmol/L (3.5-5.1)
[2021-01-29 16:22] LABS: ALBUMIN 2.7 g/dL (3.4-5.0); ALBUMIN/GLOBULIN RATIO 0.6 (1.0-1.7); TOTAL BILIRUBIN 0.3 mg/dL (0.2-1.0); TOTAL PROTEIN 7.5 g/dL (6.4-8.2)
== END ==
LOC: ONCLAB 15:20
PROVIDERS: ATTEND Internal Medicine Hematology & Oncology
DX: C20 Malignant neoplasm of rectum (principal); C19 Malignant neoplasm of rectosigmoid junction
CPT/HCPCS: 36415; 80053; 82378; 85025

== ENCOUNTER → 2021-02-12 | Outpatient (CLI) | payer OTHER ==
[~2021-02-12] MED LIST changes: +HYDR-2761 PO; +MIRT7.5T8 PO
== END ==
LOC: LAB 11:11
PROVIDERS: ATTEND Surgery
DX: Z01.812 Encounter for preprocedural laboratory examination (principal); C20 Malignant neoplasm of rectum; Z20.822 Contact with and (suspected) exposure to COVID-19
CPT/HCPCS: U0003; U0005

== ENCOUNTER 2021-02-13 09:52 | Inpatient (IN) | payer OTHER ==
[2021-02-13] VITALS (9 sets, daily range): BP systolic 70–161; BP diastolic 77–96
[~2021-02-13] VITALS: Ht 177.8 cm; Wt 59.0 kg
[~2021-02-13 09:52] MED LIST changes: +HYDROmorphone 2 MG/ML VIAL IVP PRN; +MORPHINE SULFATE 2 MG/ML VIAL. IVP PRN; +PROCHLORPERAZINE 10 MG/2 ML VIAL. IVP PRN; +fentaNYL PF VIAL 100 MCG/2 ML VIAL IVP PRN
[2021-02-13] MEDS ORDERED: ceFAZolin 2GM PREMIX 2 GM/50 ML BAG IV ONE (10:00)
[2021-02-13] MEDS ORDERED: metroNIDAZOLE 500mg PREMIX 500 MG/100 ML BAG IV ONE (10:00)
[2021-02-13] MEDS: IV RINGERS,LACTATED 1000ML 1,000 ML IV SCH ×2 (10:26→16:50)
[2021-02-13] MEDS ORDERED: fentaNYL PF VIAL 250 MCG/5 ML VIAL ONE (11:22)
[2021-02-13] MEDS ORDERED: ROCURONIUM 100 MG/10 ML VIAL. ONE (11:22)
[2021-02-13] MEDS ORDERED: DEXAMETHASONE SOD PHOS 4 MG/ML VIAL ONE (11:25)
[2021-02-13] MEDS ORDERED: PROPOFOL 10 MG/ML (20ML) VIAL. IV ONE (11:25)
[2021-02-13] MEDS ORDERED: LIDOCAINE 2% PF 5 ML VIAL. ONE (11:25)
[2021-02-13] MEDS ORDERED: ONDANSETRON PF 4 MG/2 ML VIAL. ONE (11:25)
[2021-02-13] MEDS ORDERED: SEVOFLURANE > 120 MINUTES. IH ONE ×2 (11:26→12:50)
[2021-02-13] MEDS ORDERED: KETAMINE HCL IN NACL, ISO-OSM 50 MG/5 ML SYRINGE ONE (12:11)
--- NOTE | 2021-02-13 12:27 | EKG ---
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
[2021-02-13] MEDS ORDERED: NEOSTIGMINE METHYLSULFATE 5 MG/5 ML SYRINGE. ONE (15:38)
[2021-02-13] MEDS ORDERED: GLYCOPYRROLATE 1 MG/5 ML VIAL. ONE (15:38)
[2021-02-13] MEDS ORDERED: PROCHLORPERAZINE 10 MG/2 ML VIAL. IV PRN (16:15)
[2021-02-13] MEDS: IV NORMAL SALINE 1000ML BAG 1,000 ML IV SCH (16:15)
[2021-02-13] MEDS ORDERED: NALOXONE 0.4 MG/ML VIAL. IV PRN (16:15)
[2021-02-13] MEDS ORDERED: 0.9 % SODIUM CHLORIDE 10 ML DISP.SYRIN. IV PRN (16:15)
--- NOTE | 2021-02-13 16:22 | PDOC4 ---
Operative Note Operative Note Operative Note: Preoperative Diagnosis: Rectal cancer Postoperative Diagnosis: Same Procedure: Low anterior resection with colostomy Surgeon: Driss Apprentice Lineman Third Step: Dr. Darwin MIR Anesthesia: General EBL: 50 mL Specimen: Rectosigmoid colon to pathology Drains: Blandford drain to subcutaneous tissue Complications: None Indication: The patient is a 75-year-old male who originally had locally advanced rectal cancer. He underwent neoadjuvant chemoradiation and was referred for surgical treatment. A preoperative MRI suggested marked tumor regression with only residual scar. The risks of surgery were discussed with the patient which include bleeding, infection, visceral injury, ureteral injury, hernia formation, bowel obstruction, pain, anesthetic risk, potential need for additional surgery procedure. In addition he is aware of the possibility of requiring a permanent or temporary ostomy. He understands all of this and would like to proceed. Description: The patient was taken to the operating room and placed supine on the operating table. General anesthesia was performed. He was then placed in lithotomy. The abdomen was prepped with ChloraPrep and draped in a standard fashion. A lower vertical midline incision was made in the skin with a scalpel which was carried above the umbilicus. Cautery dissection was carried down to the fascia. The fascia and peritoneum were then divided for the length of the incision. The Omni retractor was used for the remainder of the case to facilitate exposure. We began mobilizing the distal sigmoid colon and proximal rectum. All of the lateral peritoneal attachments were divided. There was a tattoo april from prior endoscopic inking in the distal sigmoid colon. There was obvious palpable tumor that seemed adherent to the anterior peritoneal reflection. The sigmoid colon was then divided proximal to the area of involvement. This was done with a KASH-75 stapler. We then began taking down the mesentery. Vessels were ligated with 2-0 Vicryl and divided. The LigaSure device assisted with mesenteric dissection. We then continued mobilizing the mesentery of the rectum. We continued distally in the posterior dissection was fully developed. Both ureters were readily identified and preserved. With the LigaSure we mobilized the rectum along the lateral margins. There was signifi cant difficulty along the anterior margin close to the bladder. There was adherence with induration suggestive of either tumor or scar from prior chemoradiation. We mobilized as best we could with care taken to not damage the bladder. We were able to get distal to the suspected area of tumor to a more normal-appearing portion of the distal rectum. At this level of the bowel was stapled off with a contour device. The rectosigmoid colon was sent to pathology for evaluation and frozen section. The pathologist confirmed that in the area of the wall that had been densely adherent to the bladder there was residual tumor. The seem to likely represent a positive radial margin with potential involvement of the bladder. Given this we felt that a permanent colostomy would be most appropriate in the event that he developed pelvic recurrence. Hemostasis was good and the peritoneum was approximated with 0 Vicryl. A circular incision was made in the left abdomen for a colostomy. With dissection a cruciate incision was made in the fascia and the stapled end of the colon was delivered through it. The midline fascia was reapproximated with 1 PDS. The incision was then covered. The staple line was excised and the colon was matured to the skin with interrupted 3-0 Vicryl sutures. A Blandford drain was left in the subcutaneous space which exited inferiorly and was secured with a stitch. The midline subcutaneous tissue was approximated with 3-0 Vicryl and the skin was closed with 4-0 Monocryl. A sterile dressing was applied. The patient tolerated the procedure well and was sent to the recovery room in stable condition. At the end of the case all counts were correct. DENVER LUNSFORD MD Feb 13, 2021 16:22
[2021-02-13] MEDS: POTASSIUM CL 20MEQ-0.45% NACL 1,000 ML IV SCH (17:00)
[2021-02-13] MEDS: HYDROmorphone 12mg/30ml PCA 30 ML IV PRN (17:02)
[2021-02-14] MEDS: POTASSIUM CL 20MEQ-0.45% NACL 1,000 ML IV SCH ×3 (02:53→22:26)
[2021-02-14 02:59] VITALS: BP 157/86
[2021-02-14 06:55] LABS: BASO % 0 % (0-3); EOS % 0 % (0-3); HEMATOCRIT 34.3 % (39.0-53.0); HEMOGLOBIN 11.2 g/dL (13.0-17.5); LYMPH # 0.4 x10^3/uL (1.0-4.8); LYMPH % 4 % (24-48); MEAN CORPUSCULAR HEMOGLOBIN 29 pg (25-35); MEAN CORPUSCULAR HGB CONC 33 g/dL (31-37); MEAN CORPUSCULAR VOLUME 90 fL (79-100); MONO # 0.7 x10^3/uL (0.0-1.1); MONO % 7 % (0-9); NEUT # 8.4 x10^3/uL (1.8-7.7); NEUT % 88 % (31-73); PLATELET COUNT 256 x10^3/uL (140-400); RED BLOOD COUNT 3.82 x10^6/uL (4.30-5.70); RED CELL DISTRIBUTION WIDTH 16.5 % (11.5-14.5); WHITE BLOOD COUNT 9.5 x10^3/uL (4.0-11.0)
[2021-02-14 07:00] VITALS: BP 135/71
[2021-02-14 07:10] LABS: CALCIUM 8.8 mg/dL (8.5-10.1); CREATININE 0.9 mg/dL (0.7-1.3); GFR 99.8; POTASSIUM 4.6 mmol/L (3.5-5.1)
[2021-02-14 07:56] LABS: % BANDS 8 % (0-9); % LYMPHS 3 % (24-48); % METAS 1 % (0-0); % MONOS 1 % (0-10); % SEGS 87 % (35-66)
[2021-02-14 07:57] LABS: PLT ESTIMATE ADEQUATE (ADEQUATE)
[2021-02-14] MEDS: ENOXAPARIN 40 MG/0.4 ML SYRINGE. SQ SCH (09:15)
--- NOTE | 2021-02-14 09:30 | NUR ---
SW following. Discussed with RN, pt from home alone, 2L (does not use at home), NPO, PT/OT being ordered (uses a cane at home). Pt had surgery on 02/13/21. 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 RN advised no SW needs at this time. SW will continue to follow.
--- NOTE | 2021-02-14 09:45 | PDOC ---
SURGICAL PROGRESS NOTE DATE: 02/14/21 TIME: 09:44 Subjective Patient awake and alert states he is feeling pretty good but sore in the abdomen Vital Signs Vital Signs Date Time Temp Pulse Resp B/P (MAP) Pulse Ox O2 Delivery O2 Flow Rate FiO2 02/14/21 07:00 98.1 93 16 135/71 (92) 97 Room Air 98.1 02/14/21 02:59 2.0 I&O Intake and Output 02/14/21 07:00 Intake Total 3350 ml Output Total 1075 ml Balance 2275 ml Intake Oral 0 ml IV Total 3350 ml Output Urine Total 1025 ml Estimated Blood Loss 50 ml PATIENT HAS A ROBERT: Yes General: Alert, Oriented X3, Cooperative, mild distress Abdomen: Soft, Other (Colostomy pink and viable midline incisions clean dry and intact no ostomy output) Labs Laboratory Tests Test 02/14/21 06:00 White Blood Count 9.5 x10^3/uL (4.0-11.0) Red Blood Count 3.82 x10^6/uL (4.30-5.70) Hemoglobin 11.2 g/dL (13.0-17.5) Hematocrit 34.3 % (39.0-53.0) Mean Corpuscular Volume 90 fL (79-100) Mean Corpuscular Hemoglobin 29 pg (25-35) Mean Corpuscular Hemoglobin Concent 33 g/dL (31-37) Red Cell Distribution Width 16.5 % (11.5-14.5) Platelet Count 256 x10^3/uL (140-400) Neutrophils (%) (Auto) 88 % (31-73) Lymphocytes (%) (Auto) 4 % (24-48) Monocytes (%) (Auto) 7 % (0-9) Eosinophils (%) (Auto) 0 % (0-3) Basophils (%) (Auto) 0 % (0-3) Neutrophils # (Auto) 8.4 x10^3/uL (1.8-7.7) Lymphocytes # (Auto) 0.4 x10^3/uL (1.0-4.8) Monocytes # (Auto) 0.7 x10^3/uL (0.0-1.1) Eosinophils # (Auto) 0.0 x10^3/uL (0.0-0.7) Basophils # (Auto) 0.0 x10^3/uL (0.0-0.2) Segmented Neutrophils % 87 % (35-66) Band Neutrophils % 8 % (0-9) Lymphocytes % 3 % (24-48) Monocytes % 1 % (0-10) Metamyelocytes % 1 % (0-0) Platelet Estimate Adequate (ADEQUATE) Sodium Level 143 mmol/L (136-145) Potassium Level 4.6 mmol/L (3.5-5.1) Chloride Level 109 mmol/L (98-107) Carbon Dioxide Level 28 mmol/L (21-32) Anion Gap 6 (6-14) Blood Urea Nitrogen 11 mg/dL (8-26) Creatinine 0.9 mg/dL (0.7-1.3) Estimated GFR (Cockcroft-Gault) 99.8 Glucose Level 96 mg/dL (70-99) Calcium Level 8.8 mg/dL (8.5-10.1) Laboratory Tests Test 02/14/21 06:00 White Blood Count 9.5 x10^3/uL (4.0-11.0) Red Blood Count 3.82 x10^6/uL (4.30-5.70) Hemoglobin 11.2 g/dL (13.0-17.5) Hematocrit 34.3 % (39.0-53.0) Mean Corpuscular Volume 90 fL (79-100) Mean Corpuscular Hemoglobin 29 pg (25-35) Mean Corpuscular Hemoglobin Concent 33 g/dL (31-37) Red Cell Distribution Width 16.5 % (11.5-14.5) Platelet Count 256 x10^3/uL (140-400) Neutrophils (%) (Auto) 88 % (31-73) Lymphocytes (%) (Auto) 4 % (24-48) Monocytes (%) (Auto) 7 % (0-9) Eosinophils (%) (Auto) 0 % (0-3) Basophils (%) (Auto) 0 % (0-3) Neutrophils # (Auto) 8.4 x10^3/uL (1.8-7.7) Lymphocytes # (Auto) 0.4 x10^3/uL (1.0-4.8) Monocytes # (Auto) 0.7 x10^3/uL (0.0-1.1) Eosinophils # (Auto) 0.0 x10^3/uL (0.0-0.7) Basophils # (Auto) 0.0 x10^3/uL (0.0-0.2) Segmented Neutrophils % 87 % (35-66) Band Neutrophils % 8 % (0-9) Lymphocytes % 3 % (24-48) Monocytes % 1 % (0-10) Metamyelocytes % 1 % (0-0) Platelet Estimate Adequate (ADEQUATE) Sodium Level 143 mmol/L (136-145) Potassium Level 4.6 mmol/L (3.5-5.1) Chloride Level 109 mmol/L (98-107) Carbon Dioxide Level 28 mmol/L (21-32) Anion Gap 6 (6-14) Blood Urea Nitrogen 11 mg/dL (8-26) Creatinine 0.9 mg/dL (0.7-1.3) Estimated GFR (Cockcroft-Gault) 99.8 Glucose Level 96 mg/dL (70-99) Calcium Level 8.8 mg/dL (8.5-10.1) Assessment/Plan Status post sigmoid rectal colectomy with end colostomy for rectal cancer. Patient stable and awaiting return of bowel function Justicifation of Admission Dx: Justifications for Admission: Justification of Admission Dx: Yes SHEMAR VITALE MD Feb 14, 2021 09:45
[2021-02-14 11:00] VITALS: BP 146/68
[2021-02-14 15:00] VITALS: BP 135/75
[2021-02-14] MEDS: IV NORMAL SALINE 1000ML BAG 1,000 ML IV SCH (16:15)
--- NOTE | 2021-02-14 17:11 | NUR ---
wound/ostomy care Pt ostomy bag was leaking drainage onto surgical dressing. Ostomy ring applied and bag replaced with cut to fit, one piece, flat, mani bag. Template left in room. Stoma is edematous and beefy red with scant blood, no stool noted. Steri-strips on surgical incision with jair at distal end. Gauze and tape placed over surgical incision. Ostomy nurse will follow up on Wednesday for teaching arrangement.
[2021-02-14 19:15] VITALS: BP 139/81
[2021-02-14] MEDS: HYDROmorphone 12mg/30ml PCA 30 ML IV PRN (20:10)
[2021-02-14 23:13] VITALS: BP 124/76
[2021-02-15 03:04] VITALS: BP 133/79
[2021-02-15] MEDS: ONDANSETRON PF 4 MG/2 ML VIAL. IVP PRN ×2 (05:07→16:37)
[2021-02-15 07:00] VITALS: BP 135/73
[2021-02-15] MEDS: POTASSIUM CL 20MEQ-0.45% NACL 1,000 ML IV SCH ×2 (08:32→18:43)
--- NOTE | 2021-02-15 08:33 | PDOC ---
SURGICAL PROGRESS NOTE DATE: 02/15/21 TIME: 08:32 Subjective Patient doing quite well is asking for liquids. Has not passed anything in his colostomy Vital Signs Vital Signs Date Time Temp Pulse Resp B/P (MAP) Pulse Ox O2 Delivery O2 Flow Rate FiO2 02/15/21 07:00 98.0 98 18 135/73 (93) 95 Nasal Cannula 2.0 98.0 I&O Intake and Output 02/15/21 07:00 Intake Total 900 ml Output Total 3050 ml Balance -2150 ml IV Total 900 ml Output Urine Total 3050 ml PATIENT HAS A ROBERT: Yes General: Alert, Oriented X3, Cooperative, mild distress Abdomen: Soft, Other (Mild incisional tenderness wounds clean dry and intact stoma pink viable no output) Labs Laboratory Tests Test 02/14/21 06:00 White Blood Count 9.5 x10^3/uL (4.0-11.0) Red Blood Count 3.82 x10^6/uL (4.30-5.70) Hemoglobin 11.2 g/dL (13.0-17.5) Hematocrit 34.3 % (39.0-53.0) Mean Corpuscular Volume 90 fL (79-100) Mean Corpuscular Hemoglobin 29 pg (25-35) Mean Corpuscular Hemoglobin Concent 33 g/dL (31-37) Red Cell Distribution Width 16.5 % (11.5-14.5) Platelet Count 256 x10^3/uL (140-400) Neutrophils (%) (Auto) 88 % (31-73) Lymphocytes (%) (Auto) 4 % (24-48) Monocytes (%) (Auto) 7 % (0-9) Eosinophils (%) (Auto) 0 % (0-3) Basophils (%) (Auto) 0 % (0-3) Neutrophils # (Auto) 8.4 x10^3/uL (1.8-7.7) Lymphocytes # (Auto) 0.4 x10^3/uL (1.0-4.8) Monocytes # (Auto) 0.7 x10^3/uL (0.0-1.1) Eosinophils # (Auto) 0.0 x10^3/uL (0.0-0.7) Basophils # (Auto) 0.0 x10^3/uL (0.0-0.2) Segmented Neutrophils % 87 % (35-66) Band Neutrophils % 8 % (0-9) Lymphocytes % 3 % (24-48) Monocytes % 1 % (0-10) Metamyelocytes % 1 % (0-0) Platelet Estimate Adequate (ADEQUATE) Sodium Level 143 mmol/L (136-145) Potassium Level 4.6 mmol/L (3.5-5.1) Chloride Level 109 mmol/L (98-107) Carbon Dioxide Level 28 mmol/L (21-32) Anion Gap 6 (6-14) Blood Urea Nitrogen 11 mg/dL (8-26) Creatinine 0.9 mg/dL (0.7-1.3) Estimated GFR (Cockcroft-Gault) 99.8 Glucose Level 96 mg/dL (70-99) Calcium Level 8.8 mg/dL (8.5-10.1) Assessment/Plan Status post sigmoid rectal resection for rectal cancer DC Robert, start clear liquids increase activity Justicifation of Admission Dx: Justifications for Admission: Justification of Admission Dx: Yes SHEMAR VITALE MD Feb 15, 2021 08:33
[2021-02-15] MEDS: ENOXAPARIN 40 MG/0.4 ML SYRINGE. SQ SCH (09:42)
[2021-02-15 11:00] VITALS: BP 134/68
--- NOTE | 2021-02-15 12:47 | NUR ---
Indra BANGURA per doctor ordered
[2021-02-15 15:00] VITALS: BP 128/62
[2021-02-15] MEDS: IV NORMAL SALINE 1000ML BAG 1,000 ML IV SCH (16:15)
[2021-02-15 19:00] VITALS: BP 132/71
[2021-02-15 23:00] VITALS: BP 164/81
[2021-02-16] MEDS: HYDROmorphone 12mg/30ml PCA 30 ML IV PRN (01:43)
[2021-02-16 02:54] VITALS: BP 126/69
[2021-02-16] MEDS: POTASSIUM CL 20MEQ-0.45% NACL 1,000 ML IV SCH ×3 (04:12→23:58)
[2021-02-16 07:00] VITALS: BP 121/61
[2021-02-16] MEDS: ENOXAPARIN 40 MG/0.4 ML SYRINGE. SQ SCH (08:35)
--- NOTE | 2021-02-16 09:02 | PDOC ---
SURGICAL PROGRESS NOTE DATE: 02/16/21 TIME: 09:01 Subjective Patient doing quite well with no complaints. No flatus or stool within his colostomy bag. Patient is tolerating clear liquids Vital Signs Vital Signs Date Time Temp Pulse Resp B/P (MAP) Pulse Ox O2 Delivery O2 Flow Rate FiO2 02/16/21 07:00 98.3 89 18 121/61 (81) 99 Nasal Cannula 2.0 98.3 I&O Intake and Output 02/16/21 07:00 Output Total 2325 ml Balance -2325 ml Output Urine Total 2325 ml # Voids 2 PATIENT HAS A ROBERT: No General: Alert, Oriented X3, Cooperative, mild distress Abdomen: Normal bowel sounds, Soft, Other (Mild incisional tenderness wounds clean dry and intact ostomy is pink and viable) Assessment/Plan Status post sigmoid rectal resection for rectal cancer Awaiting return of bowel function hold on advancing diet Justicifation of Admission Dx: Justifications for Admission: Justification of Admission Dx: Yes SHEMAR VITALE MD Feb 16, 2021 09:02
[2021-02-16 10:51] VITALS: BP 124/76
[2021-02-16 14:45] VITALS: BP 144/77
[2021-02-16] MEDS: IV NORMAL SALINE 1000ML BAG 1,000 ML IV SCH (16:15)
[2021-02-16 19:00] VITALS: BP 139/75
[2021-02-16 23:00] VITALS: BP 153/78
[2021-02-16] MEDS: ONDANSETRON PF 4 MG/2 ML VIAL. IVP PRN (23:06)
[2021-02-17 02:46] VITALS: BP 136/79
[2021-02-17 07:00] VITALS: BP 119/68
[2021-02-17] MEDS: ENOXAPARIN 40 MG/0.4 ML SYRINGE. SQ SCH (07:53)
--- NOTE | 2021-02-17 08:57 | PDOC ---
LUIS DANIEL KAN APRN 02/17/21 0856: SURGICAL PROGRESS NOTE DATE: 02/17/21 TIME: 08:55 Subjective no emesis taking few clears here and there would like to walk Vital Signs Vital Signs Date Time Temp Pulse Resp B/P (MAP) Pulse Ox O2 Delivery O2 Flow Rate FiO2 02/17/21 08:00 Room Air 02/17/21 07:00 98.0 91 18 119/68 (85) 96 98.0 02/17/21 02:46 2.0 I&O Intake and Output 02/17/21 07:00 Output Total 2150 ml Balance -2150 ml Output Urine Total 2150 ml General: Cooperative, No acute distress Abdomen: Soft, Other (stoma pink, no flatus ) Problem List ambulate will ask pt/ot to evaluate clears, await bowel function Justicifation of Admission Dx: Justifications for Admission: Justification of Admission Dx: Yes DENVER LUNSFORD MD 02/17/21 1147: SURGICAL PROGRESS NOTE Assessment/Plan Agree with above LUIS DANIEL KAN APRN Feb 17, 2021 08:56 DENVER LUNSFORD MD Feb 17, 2021 11:47
[2021-02-17] MEDS: POTASSIUM CL 20MEQ-0.45% NACL 1,000 ML IV SCH ×2 (09:39→20:29)
--- NOTE | 2021-02-17 09:52 | NUR ---
SW following. Discussed with RN, pt from home alone, 2L (does not use at home), clear liquid diet. Therapy ordered. Pt had surgery 02/13 - awaiting return of bowel function. SW will continue to follow.
[2021-02-17 11:00] VITALS: BP 120/70
[2021-02-17 14:03] VITALS: BP 132/77
--- NOTE | 2021-02-17 16:12 | NUR ---
Wound/Ostomy Pt has one piece convex bag in place with serosanguineous drainage. Ostomy teaching will take place on 02/19 at 2pm. Pt declined to have anyone present for teaching.
[2021-02-17] MEDS: IV NORMAL SALINE 1000ML BAG 1,000 ML IV SCH (16:15)
[2021-02-17] MEDS: HYDROmorphone 12mg/30ml PCA 30 ML IV PRN (17:24)
[2021-02-17 19:00] VITALS: BP 134/83
[2021-02-17 23:00] VITALS: BP 124/84
[2021-02-18 03:00] VITALS: BP 139/73
[2021-02-18] MEDS: POTASSIUM CL 20MEQ-0.45% NACL 1,000 ML IV SCH ×2 (06:33→16:05)
[2021-02-18 07:00] VITALS: BP 124/73
[2021-02-18] MEDS: ENOXAPARIN 40 MG/0.4 ML SYRINGE. SQ SCH (08:27)
--- NOTE | 2021-02-18 09:45 | PDOC ---
LUIS DANIEL KAN APRN 02/18/21 0945: SURGICAL PROGRESS NOTE DATE: 02/18/21 TIME: 09:42 Subjective feels better stool in ostomy Vital Signs Vital Signs Date Time Temp Pulse Resp B/P (MAP) Pulse Ox O2 Delivery O2 Flow Rate FiO2 02/18/21 07:00 98.3 108 16 124/73 (90) 96 Room Air 98.3 I&O Intake and Output 02/18/21 07:00 Intake Total 1420 ml Output Total 1425 ml Balance -5 ml Intake Oral 420 ml IV Total 1000 ml Output Urine Total 1350 ml Stool Total 75 ml General: Alert, Cooperative Abdomen: Soft Assessment/Plan will advance diet d/w nurse--will need some type of rehab, dc planning already involved Justicifation of Admission Dx: Justifications for Admission: Justification of Admission Dx: Yes DENVER LUNSFORD MD 02/18/21 1439: SURGICAL PROGRESS NOTE Assessment/Plan Agree with above LUIS DANIEL KAN APRN Feb 18, 2021 09:45 DENVER LUNSFORD MD Feb 18, 2021 14:39
[2021-02-18 11:00] VITALS: BP 132/68
[2021-02-18] MEDS ORDERED: ONDANSETRON ODT 4 MG TAB.RAPDIS. PO PRN (14:00)
--- NOTE | 2021-02-18 14:59 | NUR ---
SS following up with discharge planning. SS reviewed pt chart and dicussed with pt RN. Pt is currently on room air. LABORER HEADING discontinued. PT/OT recommended retirement unit. Pt has [place] Medicaid and does not have benefits for retirement unit. SS met with pt in room to discuss discharge planning. Pt requesting referral to [facility], ; fax [phone]. SS phoned and faxed referral as requested. SS will continue to follow for discharge planning.
[2021-02-18 15:00] VITALS: BP_SYST 108; BP_SYST 133; BP_DIAS 69; BP_DIAS 70
[2021-02-18] MEDS: HYDROcodone/APAP 5/325MG 1 TAB TABLET PO PRN (15:14)
[2021-02-18] MEDS: IV NORMAL SALINE 1000ML BAG 1,000 ML IV SCH (16:04)
[2021-02-18 19:00] VITALS: BP 131/84
[2021-02-18 23:00] VITALS: BP 143/73
[2021-02-19] MEDS: HYDROcodone/APAP 5/325MG 1 TAB TABLET PO PRN ×3 (01:18→19:56)
[2021-02-19] MEDS: POTASSIUM CL 20MEQ-0.45% NACL 1,000 ML IV SCH ×2 (02:45→13:00)
[2021-02-19 03:00] VITALS: BP 93/54
[2021-02-19 07:00] VITALS: BP 131/73
[2021-02-19] MEDS: ENOXAPARIN 40 MG/0.4 ML SYRINGE. SQ SCH (08:23)
[2021-02-19 11:00] VITALS: BP 138/77
--- NOTE | 2021-02-19 13:30 | PDOC ---
PROGRESS NOTES Date of Service DATE: 02/19/21 TIME: 13:29 Subjective Subjective improving well, taking po Objective Objective Vital Signs Date Time Temp Pulse Resp B/P (MAP) Pulse Ox O2 Delivery O2 Flow Rate FiO2 02/19/21 13:25 Room Air 02/19/21 11:00 98.3 79 17 138/77 (97) 96 98.3 02/17/21 02:46 2.0 Intake and Output 02/19/21 07:00 Intake Total 120 ml Output Total 1000 ml Balance -880 ml Intake Oral 120 ml Output Urine Total 900 ml Stool Total 100 ml # Voids 1 Physical Exam Abdomen: Soft (incision ok, ostomy with stool) Assessment Assessment Rectal cancer Plan Plan of Care Advance diet, ambulate, ostomy nurses following for education, begin discharge planning Comment Review of Relevant I have reviewed the following items april (where applicable) has been applied. Medications Current Medications Fentanyl Citrate (Fentanyl 2ml Vial) 25 mcg PRN Q5MIN PRN IVP MILD PAIN 1-3; Start 02/13/21 at 06:00; Stop 02/14/21 at 05:59; Status DC Fentanyl Citrate (Fentanyl 2ml Vial) 50 mcg PRN Q5MIN PRN IVP MODERATE PAIN 4- 6; Start 02/13/21 at 06:00; Stop 02/14/21 at 05:59; Status DC Morphine Sulfate (Morphine Sulfate) 1 mg PRN Q10MIN PRN IVP SEVERE PAIN 7-10; Start 02/13/21 at 06:00; Stop 02/14/21 at 05:59; Status DC Ringer's Solution 1,000 ml @ 30 mls/hr Q24H IV Last administered on 02/13/21at 16:50; Start 02/13/21 at 06:00; Stop 02/13/21 at 17:59; Status DC Hydromorphone HCl (Dilaudid) 0.5 mg PRN Q10MIN PRN IVP SEVERE PAIN 7-10, 2nd CHOICE; Start 02/13/21 at 06:00; Stop 02/14/21 at 05:59; Status DC Prochlorperazine Edisylate (Compazine) 5 mg PACU PRN PRN IVP NAUSEA, MRX1; Start 02/13/21 at 06:00; Stop 02/14/21 at 05:59; Status DC Cefazolin Sodium/ Dextrose 50 ml @ 100 mls/hr 1X PREOP PRN IV PRIOR TO PROCEDURE; Start 02/13/21 at 06:00; Stop 02/13/21 at 18:00; Status DC Metronidazole 100 ml @ 100 mls/hr 1X PREOP PRN IV PRIOR TO PROCEDURE; Start 02/13/21 at 06:00; Stop 02/13/21 at 18:00; Status DC Rocuronium [place] (Zemuron) 100 mg STK-MED ONCE .ROUTE ; Start 02/13/21 at 11:22; Stop 02/13/21 at 11:22; Status DC Fentanyl Citrate (Fentanyl 5ml Vial) 250 mcg STK-MED ONCE .ROUTE ; Start 02/13/21 at 11:22; Stop 02/13/21 at 11:22; Status DC Propofol (Diprivan) 200 mg STK-MED ONCE IV ; Start 02/13/21 at 11:25; Stop 02/13/21 at 11:26; Status DC Lidocaine HCl (Lidocaine Pf 2% Vial) 5 ml STK-MED ONCE .ROUTE ; Start 02/13/21 at 11:25; Stop 02/13/21 at 11:26; Status DC Ondansetron HCl (Zofran) 4 mg STK-MED ONCE .ROUTE ; Start 02/13/21 at 11:25; Stop 02/13/21 at 11:26; Status DC Dexamethasone Sodium Phosphate (Decadron) 4 mg STK-MED ONCE .ROUTE ; Start 02/13/21 at 11:25; Stop 02/13/21 at 11:26; Status DC Sevoflurane (Ultane) 90 ml STK-MED ONCE IH ; Start 02/13/21 at 11:26; Stop 02/13/21 at 11:26; Status DC Ketamine HCl (Ketamine) 50 mg STK-MED ONCE .ROUTE ; Start 02/13/21 at 12:11; Stop 02/13/21 at 12:11; Status DC Sevoflurane (Ultane) 90 ml STK-MED ONCE IH ; Start 02/13/21 at 12:50; Stop 06/26 at 12:50; Status DC Neostigmine [place] (Neostigmine Methylsulfate) 5 mg STK-MED ONCE .ROUTE ; Start 02/13/21 at 15:38; Stop 02/13/21 at 15:38; Status DC Glycopyrrolate (Robinul) 1 mg STK-MED ONCE .ROUTE ; Start 02/13/21 at 15:38; Stop 02/13/21 at 15:38; Status DC Enoxaparin Sodium (Lovenox 40mg Syringe) 40 mg Q24H SQ Last administered on 02/19/21at 08:23; Start 02/14/21 at 09:00 Sodium Chloride (Normal Saline Flush) 3 ml QSHIFT PRN IV AFTER MEDS AND BLOOD DRAWS; Start 02/13/21 at 16:15 Potassium Chloride/Sodium Chloride 1,000 ml @ 100 mls/hr Q10H IV Last administered on 02/18/21at 06:33; Start 02/13/21 at 17:00 Naloxone HCl (Narcan) 0.4 mg PRN Q2MIN PRN IV SEE INSTRUCTIONS; Start 02/13/21 at 16:15 Sodium Chloride 1,000 ml @ 25 mls/hr Q24H IV ; Start 02/13/21 at 16:15 Hydromorphone HCl 30 ml @ 0 mls/hr CONT PRN PRN IV PER PROTOCOL Last administered on 02/17/21at 17:24; Start 02/13/21 at 16:15; Stop 02/18/21 at 14:01; Status DC Ondansetron HCl (Zofran) 4 mg PRN Q6HRS PRN IVP NAUESA, 1ST CHOICE Last administered on 02/16/21at 23:06; Start 02/13/21 at 16:15 Prochlorperazine Edisylate (Compazine) 5 mg PRN Q6HRS PRN IV N/V, 2nd Choice, MR X1 Last administered on 02/17/21at 01:37; Start 02/13/21 at 16:15 Cefazolin Sodium/ Dextrose (Ancef 2gm Premix) 2 gm STK-MED ONCE IV ; Start 02/13/21 at 10:00; Stop 02/14/21 at 08:44; Status DC Metronidazole (FLAGYL 500Mmg PREMIX) 500 mg STK-MED ONCE IV ; Start 02/13/21 at 10:00; Stop 02/14/21 at 08:52; Status DC Acetaminophen/ Hydrocodone Bitart (Lortab 5/325) 1 tab PRN Q4HRS PRN PO PAIN Last administered on 02/19/21at 12:57; Start 02/18/21 at 14:00 Ondansetron HCl (Zofran Odt) 4 mg PRN Q6HRS PRN PO NAUSEA/VOMITING; Start 02/18/21 at 14:00 Active Scripts Active Reported Mirtazapine 7.5 Mg Tablet 7.5 Mg PO QHS Hydrocodone-Apap 5-325 (Hydrocodone Bit/Acetaminophen) 1 Tab Tablet 1 Tab PO PRN Q6HRS PRN Vitals/I & O Vital Sign - Last 24 Hours 02/18/21 02/18/21 02/18/21 02/18/21 15:00 15:14 15:44 19:00 Temp 98.5 98.2 98.5 98.2 Pulse 95 102 Resp 16 18 B/P (MAP) 133/70 (91) 131/84 (100) Pulse Ox 97 96 O2 Delivery Room Air Room Air Room Air 02/18/21 02/18/21 02/19/21 02/19/21 19:30 23:00 01:18 03:00 Temp 98.9 99.2 98.9 99.2 Pulse 106 100 Resp 18 18 B/P (MAP) 143/73 (96) 93/54 (67) Pulse Ox 95 98 O2 Delivery Room Air Room Air 02/19/21 02/19/21 02/19/21 02/19/21 07:00 08:00 11:00 12:57 Temp 98.6 98.3 98.6 98.3 Pulse 102 79 Resp 17 17 B/P (MAP) 131/73 (92) 138/77 (97) Pulse Ox 97 96 O2 Delivery Room Air Room Air Room Air Room Air 02/19/21 13:25 O2 Delivery Room Air Intake and Output 02/18/21 02/18/21 02/19/21 15:00 23:00 07:00 Intake Total 120 ml Output Total 600 ml 400 ml Balance -480 ml -400 ml Justifications for Admission Other Justification Nutrition Consultation Dietary Evaluation: Recommendations by RD: Dietary education by RD, Increase Calorie Intake, Protei n supplementation Comments: REC advance diet per surgery handout provided to pt on Colostomy Nutrition Therapy from Nutrition Care Manual. RD available x [phone] should questions arise before d/c Expected Outcomes/Goals: diet adv/ tolerance- goal ongoing Interpretation of weight loss: >20% in 1 year Malnutrition Findings: Muscle Mass (Severe): Severe Depletion Weight Status: Underweight DENVER LUNSFORD MD Feb 19, 2021 13:30
--- NOTE | 2021-02-19 13:50 | NUR ---
SS following up with discharge planning. SS reviewed pt chart and discussed with pt RN. Pt is currently on room air. PT/OT recommended longterm unit. Pt accepted at [facility], ; fax [phone], pending insurance authorization. SS will continue to follow for discharge planning.
[2021-02-19 15:00] VITALS: BP 129/76
[2021-02-19] MEDS: IV NORMAL SALINE 1000ML BAG 1,000 ML IV SCH (16:15)
[2021-02-19 19:00] VITALS: BP 130/66
[2021-02-19 23:00] VITALS: BP 131/67
[2021-02-20] MEDS: HYDROcodone/APAP 5/325MG 1 TAB TABLET PO PRN ×3 (02:15→19:42)
[2021-02-20 03:00] VITALS: BP 131/71
[2021-02-20 07:00] VITALS: BP_SYST 108; BP_SYST 152; BP_DIAS 66; BP_DIAS 70
[2021-02-20] MEDS: ENOXAPARIN 40 MG/0.4 ML SYRINGE. SQ SCH (08:34)
--- NOTE | 2021-02-20 09:02 | PDOC ---
LUIS DANIEL KAN POWER LINEMAN 02/20/21 0901: SURGICAL PROGRESS NOTE DATE: 02/20/21 TIME: 09:01 Subjective no n/v, low appetite no pain Vital Signs Vital Signs Date Time Temp Pulse Resp B/P (MAP) Pulse Ox O2 Delivery O2 Flow Rate FiO2 02/20/21 03:00 99.1 99 18 131/71 (91) 97 Room Air 99.1 I&O Intake and Output 02/20/21 07:00 Output Total 575 ml Balance -575 ml Output Urine Total 475 ml Stool Total 100 ml General: Alert, Cooperative Abdomen: Soft, Other (ND, ostomy with stool, jair drain in place) Problem List possible dc if arranged for today Justicifation of Admission Dx: Justifications for Admission: Justification of Admission Dx: Yes DENVER LUNSFORD MD 02/21/21 1107: SURGICAL PROGRESS NOTE Assessment/Plan Agree with above LUIS DANIEL KAN APRN Feb 20, 2021 09:01 DENVER LUNSFORD MD Feb 21, 2021 11:07
--- NOTE | 2021-02-20 09:56 | NUR ---
SW following. Discussed with RN, pt accepted at [facility] pending insurance auth. MAKAYLA sent message to [facility] to determine progress with auth request - awaiting response. MAKAYLA will continue to follow.
[2021-02-20 11:00] VITALS: BP 132/76
[2021-02-20 15:00] VITALS: BP 140/79
[2021-02-20 19:00] VITALS: BP 123/66
[2021-02-20 23:00] VITALS: BP 123/68
[2021-02-21] MEDS: HYDROcodone/APAP 5/325MG 1 TAB TABLET PO PRN ×2 (01:04→09:45)
[2021-02-21 03:00] VITALS: BP 117/66
[2021-02-21 07:00] VITALS: BP 124/71
[2021-02-21] MEDS: ENOXAPARIN 40 MG/0.4 ML SYRINGE. SQ SCH (08:24)
--- NOTE | 2021-02-21 10:21 | PDOC ---
LUIS DANIEL KAN BUS GIRL 02/21/21 1021: SURGICAL PROGRESS NOTE DATE: 02/21/21 TIME: 10:20 Subjective awaiting insurance approval some gas, cramping pains after eating ostomy functioning no n/v Vital Signs Vital Signs Date Time Temp Pulse Resp B/P (MAP) Pulse Ox O2 Delivery O2 Flow Rate FiO2 02/21/21 09:45 Room Air 02/21/21 07:00 97.9 97 18 124/71 (88) 93 97.9 I&O Intake and Output 02/21/21 07:00 Intake Total 240 ml Output Total 500 ml Balance -260 ml Intake Oral 240 ml Output Urine Total 500 ml # Voids 1 General: Alert, Oriented X3, Cooperative Abdomen: Soft, Other (stool in ostomy ) Problem List dc when placement arranged Justicifation of Admission Dx: Justifications for Admission: Justification of Admission Dx: Yes DENVER LUNSFORD MD 02/21/21 1107: SURGICAL PROGRESS NOTE Assessment/Plan Agree with above LUIS DANIEL KAN APRN Feb 21, 2021 10:21 DENVER LUNSFORD MD Feb 21, 2021 11:07
[2021-02-21 11:00] VITALS: BP 120/68
--- NOTE | 2021-02-21 13:13 | SNU/HH DC ---
DISCHARGE ORDERS DISCHARGE INFORMATION: DISCHARGE DATE: Feb 21, 2021 FINAL DIAGNOSIS Rectal cancer CONDITION ON DISCHARGE: Stable CODE STATUS: Code Status: Full POST DISCHARGE ORDERS: ACTIVITY ORDERS: Resume previous activity, Activity as tolerated, Other, see below (no lifting > 20 lbs) WEIGHT BEARING STATUS: Full weight bearing, As tolerated BATHING ORDERS: Shower-keep dressing dry DIET AFTER DISCHARGE: Regular WOUND/INCISION CARE: Other, see below (can leave incision uncovered, lower portion had drain, now removed, some drainage is expected, cover as needed) OTHER WOUND INSTRUCTIONS: ostomy care FOLLOW-UP: PHYSICIAN FOLLOW-UP: Dr Naqvi 2 weeks, call to schedule [phone] TREATMENT/EQUIPMENT ORDERS: ADAPTIVE EQUIPMENT NEEDED: None Physical Therapy For: Evalulation/Treatment Occupational Therapy For: Evaluation/Treatment DISCHARGE MEDICATIONS: Home Meds Reported Medications Mirtazapine (MIRTAZAPINE) 7.5 Mg Tablet, 7.5 MG PO QHS for SLEEP AID, TAB 02/12/21 Hydrocodone Bit/Acetaminophen (HYDROCODONE-APAP 5-325 ) 1 Tab Tablet, 1 TAB PO PRN Q6HRS PRN for PAIN, TAB 0 Refills 02/12/21 LUIS DANIEL KAN BACK ROLLER Feb 21, 2021 13:13
--- NOTE | 2021-02-21 13:16 | NUR ---
MAKAYLA following. Discussed with RN. Insurance approved transfer to [facility]. Discharge orders faxed, awaiting transportation time. RN notified. MAKAYLA will continue to follow. Addendum: 02/21/21 at 1447 by MAE BENAVIDES Transportation arranged by [facility] for 0. RN notified.
--- NOTE | 2021-02-21 13:20 | NUR ---
[place] drain removed per doctor ordered
[2021-02-21 15:00] VITALS: BP 119/62
--- NOTE | 2021-02-21 15:19 | NUR ---
Wound/Ostomy Care Ostomy bag was lifting on midline border so bag removed and new one piece flat ostomy bag applied. Pt is discharging today.
--- NOTE | 2021-02-21 16:50 | NUR ---
Patient discharged to [facility] today via wheelchair, accompanied by transporter. Patient is stable, No IV, discharge packet given to transporter. Nursing communication was called to [facility] and the nurse taking report was Vaughn CUMMINGS.
--- NOTE | 2021-02-24 09:10 | PATHOLOGY ---
[facility] Accession Number: [id number] . 01 Material submitted: . rectosigmoid junction - RECTOSIGMOID COLON-FS . 01 Clinical history: . LOWER ANTERIOR RESECTION . 02 Frozen section diagnosis: . INTRAOPERATIVE CONSULTATION WITH FROZEN SECTION (Reinier Roy MD) . Segment of colon and rectum with attached mesocolon/mesorectum, rectosigmoid colon resection: - Focal residual invasive colorectal adenocarcinoma with extensive scarring within anterior wall of rectum from border of defect of distal rectum. . The results are reported to Dr. Naqvi in the operating room. . Frozen section performed at [facility], [address] [place] [address], [place] [address]. . . INTRAOPERATIVE GROSS DESCRIPTION The specimen is received fresh and is designated, "rectosigmoid colon". This consists of a segment of sigmoid colon and rectum with attached mesocolon and mesorectal soft tissue. The segment measures approximately 31 cm in length and is stapled closed at both ends. The mesocolon attached to the sigmoid colon measures up to approximately 3.4 cm in depth. The rectum and mesorectal tissues measure up to 6.5 cm in width. The antimesocolic serosa is reddish and hyperemic. There is an area of black tattooing of the antimesocolic serosa, approximately 11 cm from the proximal margin. Distal to this, the rectum is torn into two separate segments, comprised of the distal segment having a larger ovoid defect of anterior wall, and a proximal segment comprised of sigmoid colon and proximal rectum with a small 1.5 cm ovoid defect at the distal end. Approximately 3.0 cm from the distal stapled margin of the distal segment, there is a defect of the anterior wall of the rectum measuring 3 cm in diameter. This area is designated by the surgeon as being adherent to the bladder. There are areas of alejandra induration of the anterior wall of the distal border of this defect. [employer] sections from this area are submitted for frozen section as FSA1. . The segment is opened longitudinally. The smaller defect is contiguous with the lumen of the proximal rectum. This segment of rectum is narrowed. The mucosa of the sigmoid colon and proximal rectum is pink to pinkish-live and erythematous. The mucosa of the distal rectal segment is pinkish-live and erythematous. There are no polyps or obvious mucosal masses. The proximal rectum is from the distal rectum by a distance of 3 cm. The tissue between the two segments is yellow-brown to alejandra and indurated. The tissue remaining from frozen section is submitted as A1. The specimen is fixed in formalin prior to additional sectioning. (JPM:king:branden; 02/13/2021) RUFINO/JOAQUÍN . 02 Diagnosis: Sigmoid colon and rectum with attached mesocolon and mesorectum, rectosigmoid colon resection: - Focal residual invasive colorectal adenocarcinoma, moderately differentiated, involving submucosa, muscularis propria of rectum, and mesorectum, with extensive scarring of anterior mesorectal tissues and focal marked narrowing of proximal rectum. - Probable focal tumor involvement of anterior radial margin of resection in area of scarring. - Distal rectal margin resection negative for tumor. - Proximal sigmoid colon margin of resection negative for tumor. - No lymphovascular tumor invasion identified. - Twelve mesorectal/mesocolic lymph nodes negative for tumor. - Focal tattooing of distal sigmoid colon. 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 [facility] 02/24/2021 0819 Local . 02 Comment: Although there is evidence of tumor regression from pre-operative therapy, there is focal residual invasive colorectal adenocarcinoma involving submucosa, muscularis propria, and mesorectum. 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 The proximal sigmoid colon and distal rectal margins of resection are negative for tumor. There are twelve mesorectal/mesocolic lymph nodes which are negative for tumor (pT4 N0). (JPM/db; 02/20/2021) . 02 Electronically signed: . Reinier Roy MD, Pathologist NPI- [id number] . 01 Gross description: . PLEASE SEE GROSS DESCRIPTION UNDER FROZEN SECTION HEADING. . Received in formalin labeled "Rahat Schmidt and rectal sigmoid colon". The specimen is stapled on both ends with a suture at the proximal end. The specimen was previously opened for frozen sectioning (see FS gross-cassette in FSA1). The proximal end is inked blue and the distal end is inked green. The serosa is pink-alejandra with an area of black tattooing (over inked black) located 11 cm from the proximal margin. Sectioning of the tattooed area reveals pink-alejandra serosa and mucosal cut surfaces and no other grossly apparent lesions. The anterior wall of the rectum has an indurated defect measuring 3.0 cm from the distal margin. . . The segment between the torn proximal rectum and distal rectum is inked blue. The region between this segment and the area of frozen section is inked orange. Sectioning into the segment between the torn proximal and distal rectum reveals reveals firm alejandra-brown cut surfaces. The uninvolved mucosa is pink-alejandra with no polyps, diverticuli, perforations or grossly apparent lesions. Sectioning of the adipose tissue reveals 2 grossly apparent pink-alejandra lymph nodes ranging from 0.5-0.6 cm. The specimen is representatively submitted in cassettes A1 through A38. Photographs taken. . A1: frozen section FS1 remaining tissue (previously black inked) A2 through A4: remaining sections adjacent to FS1 A5: section between the anterior wall and frozen section (orange and black ink) A6 and A7: distal surgical end (green ink) A8: perpendicular sections of the distal mucosa towards the distal surgical margin A9 and A10: sections between the anterior wall defect and frozen section (orange ink), distal mucosa A11 thru A14: sections of the anterior wall defect (blue ink) A16 through A17: Sections of the anterior wall and proximal mucosa A18 through A26: Sections of the entire black tattooed anti-mesocolic serosa A27 and A28: Sections of proximal uninvolved mucosa A29 and A30: Proximal surgical end (blue ink) A31 and A32: Additional longitudinal sections of distal mucosa towards the distal surgical end A33: 2 grossly identifiable possible lymph nodes A34 thru A38: Adipose for microscopic examination of lymph nodes (BLJ; 02/15/2021) BLJ/QMS 02/24/2021 0819 Local . 02 Pathologist provided ICD-10: C19 . 02 CPT . 740588, [id number] Specimen Comment: A courtesy copy of this report has been sent to [phone] Specimen Comment: Report sent to Specimen Comment: Report sent to Specimen Comment: A duplicate report has been generated due to demographic updates. Performed at: 01 [facility] [address] [id number] MD Fransisco Tinoco MD Phone: [phone] Performed at: 02 [facility] [address] [place], [place] [id number] MD Reinier Roy MD Phone: [phone]
--- NOTE | 2021-02-24 13:20 | PDOC3 ---
Discharge Summary Visit Information Date of Admission: Feb 13, 2021 Date of Discharge: Feb 21, 2021 Admitting Diagnosis: rectal cancer Final Diagnosis rectal cancer Brief Hospital Course Allergies Allergies Coded Allergies Type Severity Reaction Last Updated Verified No Known Drug Allergies 02/13/21 No Brief Hospital Course Mr. Schmidt is a 75 old male who underwent Low anterior resection with colostomy. Postoperatively bowel function returned and tolerating diet. Pain controlled. Discharged to rehab. Follow up in clinic Discharge Information Condition at Discharge: Stable Follow Up: Weeks (2) Disposition/Orders: D/C to Another Facility Scheduled Mirtazapine (Mirtazapine) 7.5 Mg Tablet, 7.5 MG PO QHS for SLEEP AID, (Reported) Entered as Reported by: SUNI FRIEND on 02/12/21 1502 Scheduled PRN Hydrocodone Bit/Acetaminophen (Hydrocodone-Apap 5-325 ) 1 Tab Tablet, 1 TAB PO PRN Q6HRS PRN for PAIN, Ref 0 (Reported) Entered as Reported by: SUNI FRIEND on 02/12/21 1502 Last Taken: Unknown Dose on 02/10/21 Last Action: Last Taken Edited on 02/13/21 1025 by HALIE SHAH Justicifation of Admission Dx: Justifications for Admission: Justification of Admission Dx: Yes LUIS DANIEL KAN ANIMAL RIDE MANAGER Feb 24, 2021 13:20
== END 2021-02-21 16:53 | DRG 331 ==
LOC: OPSVCIP 09:52 → 4 NORTH 17:16
PROVIDERS: ADMIT Surgery; ATTEND Surgery
PROC: 0DTN0ZZ Resection of Sigmoid Colon, Open Approach (ICD-10-PCS; 2021-02-13)
PROC: 0D1H0Z4 Bypass Cecum to Cutaneous, Open Approach (ICD-10-PCS; 2021-02-13)
PROC: 0DTP0ZZ Resection of Rectum, Open Approach (ICD-10-PCS; principal; 2021-02-13 12:00)
DX: C20 Malignant neoplasm of rectum (principal); Z85.048 Personal history of other malignant neoplasm of rectum, rectosigmoid junction, and anus; Z92.21 Personal history of antineoplastic chemotherapy; Z92.3 Personal history of irradiation
CPT/HCPCS: 36415; 80048; 85007; 85025; 93005; A4314; A4364; A4421; A4452; A4930; A5061; A6402; J0690; J0780; J1100; J1170; J1650; J2405; J2704; J2710; J3010; J3480; J3490; J7120; 97110-GO; 97110-GP; 97116-GP; 97530-GO; 97530-GP; 97535-GO; G0378

== ENCOUNTER → 2021-03-07 | Outpatient (CLI) | payer OTHER ==
[2021-02-21 15:00] VITALS: BP 119/62
[~2021-03-07] MED LIST changes: -HYDROmorphone 2 MG/ML VIAL IVP PRN; -MORPHINE SULFATE 2 MG/ML VIAL. IVP PRN; -PROCHLORPERAZINE 10 MG/2 ML VIAL. IVP PRN; -fentaNYL PF VIAL 100 MCG/2 ML VIAL IVP PRN
[2021-03-07 13:50] LABS: BASO % 1 % (0-3); EOS # 0.1 x10^3/uL (0.0-0.7); EOS % 2 % (0-3); HEMATOCRIT 27.7 % (39.0-53.0); HEMOGLOBIN 9.1 g/dL (13.0-17.5); LYMPH # 0.5 x10^3/uL (1.0-4.8); LYMPH % 7 % (24-48); MEAN CORPUSCULAR HEMOGLOBIN 28 pg (25-35); MEAN CORPUSCULAR HGB CONC 33 g/dL (31-37); MEAN CORPUSCULAR VOLUME 84 fL (79-100); MONO # 0.5 x10^3/uL (0.0-1.1); MONO % 8 % (0-9); NEUT # 5.2 x10^3/uL (1.8-7.7); NEUT % 83 % (31-73); PLATELET COUNT 462 x10^3/uL (140-400); RED CELL DISTRIBUTION WIDTH 16.7 % (11.5-14.5); WHITE BLOOD COUNT 6.3 x10^3/uL (4.0-11.0)
[2021-03-07 14:03] LABS: CREATININE 1.1 mg/dL (0.7-1.3); GFR 79.2; POTASSIUM 4.3 mmol/L (3.5-5.1)
[2021-03-07 14:08] LABS: ALBUMIN 2.3 g/dL (3.4-5.0); ALBUMIN/GLOBULIN RATIO 0.4 (1.0-1.7); TOTAL BILIRUBIN 0.2 mg/dL (0.2-1.0); TOTAL PROTEIN 7.9 g/dL (6.4-8.2)
== END ==
LOC: ONCLAB 12:50
PROVIDERS: ATTEND Internal Medicine Hematology & Oncology
DX: C19 Malignant neoplasm of rectosigmoid junction (principal)
CPT/HCPCS: 36415; 80053; 82378; 85025

== ENCOUNTER → 2021-03-25 | Outpatient (CLI) | payer OTHER ==
[2021-03-25 10:56] LABS: CALCIUM 8.6 mg/dL (8.5-10.1); CREATININE 0.9 mg/dL (0.7-1.3); GFR 99.8; POTASSIUM 3.9 mmol/L (3.5-5.1)
[2021-03-25 11:01] LABS: BASO % 1 % (0-3); EOS % 0 % (0-3); HEMATOCRIT 27.6 % (39.0-53.0); HEMOGLOBIN 9.2 g/dL (13.0-17.5); LYMPH # 0.4 x10^3/uL (1.0-4.8); LYMPH % 12 % (24-48); MEAN CORPUSCULAR HEMOGLOBIN 28 pg (25-35); MEAN CORPUSCULAR HGB CONC 34 g/dL (31-37); MEAN CORPUSCULAR VOLUME 83 fL (79-100); MONO # 0.7 x10^3/uL (0.0-1.1); MONO % 20 % (0-9); NEUT # 2.4 x10^3/uL (1.8-7.7); NEUT % 67 % (31-73); PLATELET COUNT 278 x10^3/uL (140-400); RED BLOOD COUNT 3.34 x10^6/uL (4.30-5.70); RED CELL DISTRIBUTION WIDTH 18.2 % (11.5-14.5); WHITE BLOOD COUNT 3.5 x10^3/uL (4.0-11.0)
[2021-03-25 11:07] LABS: ALBUMIN 2.4 g/dL (3.4-5.0); ALBUMIN/GLOBULIN RATIO 0.4 (1.0-1.7); TOTAL BILIRUBIN 0.3 mg/dL (0.2-1.0); TOTAL PROTEIN 7.8 g/dL (6.4-8.2)
[2021-03-25 12:47] LABS: % LYMPHS 14 % (24-48); % MONOS 10 % (0-10); % SEGS 76 % (35-66)
[2021-03-25 12:48] LABS: PLT ESTIMATE ADEQUATE (ADEQUATE)
== END ==
LOC: ONCLAB 09:47
PROVIDERS: ATTEND Internal Medicine Hematology & Oncology
DX: C19 Malignant neoplasm of rectosigmoid junction (principal)
CPT/HCPCS: 36415; 80053; 82378; 85007; 85025

== ENCOUNTER → 2021-04-02 | Outpatient (CLI) | payer OTHER ==
[2021-04-02 11:15] LABS: BASO % 0 % (0-3); EOS % 1 % (0-3); HEMATOCRIT 28.6 % (39.0-53.0); HEMOGLOBIN 9.4 g/dL (13.0-17.5); LYMPH # 0.2 x10^3/uL (1.0-4.8); LYMPH % 14 % (24-48); MEAN CORPUSCULAR HEMOGLOBIN 27 pg (25-35); MEAN CORPUSCULAR HGB CONC 33 g/dL (31-37); MEAN CORPUSCULAR VOLUME 82 fL (79-100); MONO # 0.3 x10^3/uL (0.0-1.1); MONO % 15 % (0-9); NEUT # 1.2 x10^3/uL (1.8-7.7); NEUT % 69 % (31-73); PLATELET COUNT 127 x10^3/uL (140-400); RED BLOOD COUNT 3.48 x10^6/uL (4.30-5.70); RED CELL DISTRIBUTION WIDTH 17.7 % (11.5-14.5)
[2021-04-02 11:21] LABS: WHITE BLOOD COUNT 1.7 x10^3/uL (4.0-11.0)
[2021-04-02 11:35] LABS: CALCIUM 8.8 mg/dL (8.5-10.1); CREATININE 0.9 mg/dL (0.7-1.3); GFR 99.8; POTASSIUM 3.9 mmol/L (3.5-5.1)
[2021-04-02 11:45] LABS: ALBUMIN 2.3 g/dL (3.4-5.0); ALBUMIN/GLOBULIN RATIO 0.4 (1.0-1.7); TOTAL BILIRUBIN 0.1 mg/dL (0.2-1.0); TOTAL PROTEIN 7.7 g/dL (6.4-8.2)
[2021-04-02 13:10] LABS: % EOS 2 % (0-5); % LYMPHS 17 % (24-48); % MONOS 7 % (0-10); % SEGS 74 % (35-66); ANISOCYTOSIS SLIGHT; PLT ESTIMATE DECREASED (ADEQUATE)
== END ==
LOC: ONCLAB 09:56
PROVIDERS: ATTEND Physician Assistant
DX: C19 Malignant neoplasm of rectosigmoid junction (principal)
CPT/HCPCS: 36415; 80053; 82378; 85007; 85025

== ENCOUNTER → 2021-04-08 | Outpatient (CLI) | payer OTHER ==
[2021-04-08 11:06] LABS: BASO % 0 % (0-3); EOS # 0.1 x10^3/uL (0.0-0.7); EOS % 2 % (0-3); HEMATOCRIT 29.7 % (39.0-53.0); HEMOGLOBIN 9.9 g/dL (13.0-17.5); LYMPH # 0.6 x10^3/uL (1.0-4.8); LYMPH % 15 % (24-48); MEAN CORPUSCULAR HEMOGLOBIN 27 pg (25-35); MEAN CORPUSCULAR HGB CONC 33 g/dL (31-37); MEAN CORPUSCULAR VOLUME 81 fL (79-100); MONO # 0.8 x10^3/uL (0.0-1.1); MONO % 20 % (0-9); NEUT # 2.5 x10^3/uL (1.8-7.7); NEUT % 63 % (31-73); PLATELET COUNT 299 x10^3/uL (140-400); RED CELL DISTRIBUTION WIDTH 17.9 % (11.5-14.5); WHITE BLOOD COUNT 3.9 x10^3/uL (4.0-11.0)
[2021-04-08 11:18] LABS: CALCIUM 9.1 mg/dL (8.5-10.1); CREATININE 0.8 mg/dL (0.7-1.3); GFR 114.3; POTASSIUM 3.7 mmol/L (3.5-5.1)
[2021-04-08 11:37] LABS: ALBUMIN 2.4 g/dL (3.4-5.0); ALBUMIN/GLOBULIN RATIO 0.4 (1.0-1.7); TOTAL BILIRUBIN 0.2 mg/dL (0.2-1.0)
[2021-04-08 11:44] LABS: % BANDS 12 % (0-9); % EOS 3 % (0-5); % LYMPHS 23 % (24-48); % METAS 6 % (0-0); % MONOS 13 % (0-10); % SEGS 43 % (35-66); ANISOCYTOSIS SLIGHT; PLT ESTIMATE ADEQUATE (ADEQUATE)
== END ==
LOC: ONCLAB 10:00
PROVIDERS: ATTEND Internal Medicine Hematology & Oncology
DX: C19 Malignant neoplasm of rectosigmoid junction (principal)
CPT/HCPCS: 36415; 80053; 82378; 82728; 83540; 83550; 85007; 85025

== ENCOUNTER → 2021-04-22 | Outpatient (CLI) | payer OTHER ==
[2021-04-22 11:22] LABS: BASO % 1 % (0-3); EOS # 0.1 x10^3/uL (0.0-0.7); EOS % 2 % (0-3); HEMATOCRIT 29.7 % (39.0-53.0); HEMOGLOBIN 9.7 g/dL (13.0-17.5); LYMPH # 0.4 x10^3/uL (1.0-4.8); LYMPH % 10 % (24-48); MEAN CORPUSCULAR HEMOGLOBIN 26 pg (25-35); MEAN CORPUSCULAR HGB CONC 33 g/dL (31-37); MEAN CORPUSCULAR VOLUME 81 fL (79-100); MONO # 0.7 x10^3/uL (0.0-1.1); MONO % 17 % (0-9); NEUT # 2.9 x10^3/uL (1.8-7.7); NEUT % 70 % (31-73); PLATELET COUNT 204 x10^3/uL (140-400); RED BLOOD COUNT 3.68 x10^6/uL (4.30-5.70); RED CELL DISTRIBUTION WIDTH 19.6 % (11.5-14.5); WHITE BLOOD COUNT 4.1 x10^3/uL (4.0-11.0)
[2021-04-22 11:59] LABS: CALCIUM 9.1 mg/dL (8.5-10.1); CREATININE 0.8 mg/dL (0.7-1.3); GFR 114.3
[2021-04-22 12:18] LABS: ALBUMIN 2.5 g/dL (3.4-5.0); ALBUMIN/GLOBULIN RATIO 0.5 (1.0-1.7); TOTAL BILIRUBIN 0.2 mg/dL (0.2-1.0); TOTAL PROTEIN 7.8 g/dL (6.4-8.2)
== END ==
LOC: ONCLAB 10:14
PROVIDERS: ATTEND Internal Medicine Hematology & Oncology
DX: C19 Malignant neoplasm of rectosigmoid junction (principal); C20 Malignant neoplasm of rectum
CPT/HCPCS: 36415; 80053; 82378; 85025

== ENCOUNTER → 2021-05-13 | Outpatient (CLI) | payer OTHER ==
[2021-05-13 10:51] LABS: BASO # 0.1 x10^3/uL (0.0-0.2); BASO % 2 % (0-3); EOS # 0.1 x10^3/uL (0.0-0.7); EOS % 3 % (0-3); HEMATOCRIT 30.2 % (39.0-53.0); LYMPH # 0.5 x10^3/uL (1.0-4.8); LYMPH % 12 % (24-48); MEAN CORPUSCULAR HEMOGLOBIN 27 pg (25-35); MEAN CORPUSCULAR HGB CONC 33 g/dL (31-37); MEAN CORPUSCULAR VOLUME 82 fL (79-100); MONO # 0.5 x10^3/uL (0.0-1.1); MONO % 13 % (0-9); NEUT # 2.7 x10^3/uL (1.8-7.7); NEUT % 70 % (31-73); PLATELET COUNT 335 x10^3/uL (140-400); RED CELL DISTRIBUTION WIDTH 22.4 % (11.5-14.5); WHITE BLOOD COUNT 3.8 x10^3/uL (4.0-11.0)
[2021-05-13 11:11] LABS: ALBUMIN 2.4 g/dL (3.4-5.0); ALBUMIN/GLOBULIN RATIO 0.5 (1.0-1.7); CALCIUM 8.6 mg/dL (8.5-10.1); GFR 88.4; POTASSIUM 3.8 mmol/L (3.5-5.1); TOTAL BILIRUBIN 0.2 mg/dL (0.2-1.0); TOTAL PROTEIN 7.4 g/dL (6.4-8.2)
== END ==
LOC: ONCLAB 09:20
PROVIDERS: ATTEND Physician Assistant
DX: C19 Malignant neoplasm of rectosigmoid junction (principal); C20 Malignant neoplasm of rectum
CPT/HCPCS: 36415; 80053; 82378; 85025

== ENCOUNTER → 2021-05-15 | Outpatient (CLI) | payer OTHER ==
--- NOTE | 2021-05-15 17:07 | RAD ---
EXAM: XR ABDOMEN 1V 05/15/2021 4:35 PM CLINICAL INDICATION: Abdominal pain and discomfort COMPARISON: CT abdomen and pelvis 10/11/2020 TECHNIQUE: AP supine view of the abdomen. FINDINGS: There is an ostomy in the left hemiabdomen. Moderate amount of stool. No evidence of small bowel obstruction there is suture material in the pelvis.. No abnormal calcifications. No acute osseo us abnormality. IMPRESSION: Moderate volume of stool. No small bowel obstruction. Electronically signed by: Zeynep Sin MD (05/15/2021 5:05 PM) [id number]
== END ==
LOC: RAD 15:51
PROVIDERS: ATTEND Physician Assistant
DX: C19 Malignant neoplasm of rectosigmoid junction (principal); R10.9 Unspecified abdominal pain
CPT/HCPCS: 74018

== ENCOUNTER → 2021-05-15 | Outpatient (CLI) | payer OTHER | LOC: ONCLAB 15:51 | PROVIDERS: ATTEND Internal Medicine Hematology & Oncology | DX: R19.7 Diarrhea, unspecified (principal) | CPT/HCPCS: 87493; 87505 ==

== ENCOUNTER → 2021-05-22 | Outpatient (CLI) | payer OTHER ==
[2021-05-22 11:56] LABS: BASO % 1 % (0-3); EOS # 0.2 x10^3/uL (0.0-0.7); EOS % 6 % (0-3); HEMATOCRIT 26.3 % (39.0-53.0); HEMOGLOBIN 8.7 g/dL (13.0-17.5); LYMPH # 0.4 x10^3/uL (1.0-4.8); LYMPH % 14 % (24-48); MEAN CORPUSCULAR HEMOGLOBIN 27 pg (25-35); MEAN CORPUSCULAR HGB CONC 33 g/dL (31-37); MEAN CORPUSCULAR VOLUME 82 fL (79-100); MONO # 0.4 x10^3/uL (0.0-1.1); MONO % 14 % (0-9); NEUT # 1.9 x10^3/uL (1.8-7.7); NEUT % 65 % (31-73); PLATELET COUNT 155 x10^3/uL (140-400); RED BLOOD COUNT 3.19 x10^6/uL (4.30-5.70); WHITE BLOOD COUNT 2.9 x10^3/uL (4.0-11.0)
[2021-05-22 12:15] LABS: CALCIUM 8.3 mg/dL (8.5-10.1); CREATININE 0.8 mg/dL (0.7-1.3); POTASSIUM 3.9 mmol/L (3.5-5.1)
[2021-05-22 12:21] LABS: ALBUMIN 2.3 g/dL (3.4-5.0); ALBUMIN/GLOBULIN RATIO 0.5 (1.0-1.7); TOTAL BILIRUBIN 0.2 mg/dL (0.2-1.0); TOTAL PROTEIN 6.9 g/dL (6.4-8.2)
[2021-05-22 12:50] LABS: PLT ESTIMATE ADEQUATE (ADEQUATE)
[2021-05-22 12:51] LABS: ANISOCYTOSIS MOD
== END ==
LOC: ONCLAB 11:12
PROVIDERS: ATTEND Physician Assistant
DX: C19 Malignant neoplasm of rectosigmoid junction (principal)
CPT/HCPCS: 36415; 80053; 82378; 85025

== ENCOUNTER → 2021-05-27 | Outpatient (CLI) | payer OTHER ==
[2021-05-27 10:29] LABS: BASO # 0.1 x10^3/uL (0.0-0.2); BASO % 2 % (0-3); EOS # 0.1 x10^3/uL (0.0-0.7); EOS % 5 % (0-3); HEMATOCRIT 31.2 % (39.0-53.0); HEMOGLOBIN 10.2 g/dL (13.0-17.5); LYMPH # 0.5 x10^3/uL (1.0-4.8); LYMPH % 18 % (24-48); MEAN CORPUSCULAR HEMOGLOBIN 28 pg (25-35); MEAN CORPUSCULAR HGB CONC 33 g/dL (31-37); MEAN CORPUSCULAR VOLUME 84 fL (79-100); MONO # 0.4 x10^3/uL (0.0-1.1); MONO % 12 % (0-9); NEUT # 1.9 x10^3/uL (1.8-7.7); NEUT % 63 % (31-73); PLATELET COUNT 244 x10^3/uL (140-400); RED BLOOD COUNT 3.72 x10^6/uL (4.30-5.70); RED CELL DISTRIBUTION WIDTH 25.7 % (11.5-14.5); WHITE BLOOD COUNT 2.9 x10^3/uL (4.0-11.0)
[2021-05-27 10:55] LABS: CREATININE 0.8 mg/dL (0.7-1.3); POTASSIUM 3.7 mmol/L (3.5-5.1)
[2021-05-27 11:04] LABS: ALBUMIN 2.6 g/dL (3.4-5.0); ALBUMIN/GLOBULIN RATIO 0.5 (1.0-1.7); TOTAL BILIRUBIN 0.2 mg/dL (0.2-1.0); TOTAL PROTEIN 7.7 g/dL (6.4-8.2)
== END ==
LOC: ONCLAB 09:58
PROVIDERS: ATTEND Physician Assistant
DX: C19 Malignant neoplasm of rectosigmoid junction (principal)
CPT/HCPCS: 36415; 80053; 82378; 85025

== ENCOUNTER → 2021-06-03 | Outpatient (CLI) | payer OTHER ==
[2021-06-03 10:57] LABS: BASO % 2 % (0-3); EOS # 0.1 x10^3/uL (0.0-0.7); EOS % 5 % (0-3); HEMATOCRIT 28.1 % (39.0-53.0); HEMOGLOBIN 9.3 g/dL (13.0-17.5); LYMPH # 0.5 x10^3/uL (1.0-4.8); LYMPH % 29 % (24-48); MEAN CORPUSCULAR HEMOGLOBIN 28 pg (25-35); MEAN CORPUSCULAR HGB CONC 33 g/dL (31-37); MEAN CORPUSCULAR VOLUME 86 fL (79-100); MONO # 0.4 x10^3/uL (0.0-1.1); MONO % 23 % (0-9); NEUT # 0.8 x10^3/uL (1.8-7.7); NEUT % 42 % (31-73); PLATELET COUNT 243 x10^3/uL (140-400); RED BLOOD COUNT 3.29 x10^6/uL (4.30-5.70); RED CELL DISTRIBUTION WIDTH 25.7 % (11.5-14.5)
[2021-06-03 11:02] LABS: CALCIUM 8.7 mg/dL (8.5-10.1); CREATININE 0.9 mg/dL (0.7-1.3); GFR 99.5; POTASSIUM 3.7 mmol/L (3.5-5.1)
[2021-06-03 11:09] LABS: ALBUMIN 2.7 g/dL (3.4-5.0); ALBUMIN/GLOBULIN RATIO 0.6 (1.0-1.7); TOTAL BILIRUBIN 0.2 mg/dL (0.2-1.0); TOTAL PROTEIN 7.5 g/dL (6.4-8.2)
[2021-06-03 11:18] LABS: WHITE BLOOD COUNT 1.9 x10^3/uL (4.0-11.0)
[2021-06-03 12:50] LABS: % ATYL 1 % (0-0); % EOS 6 % (0-5); % LYMPHS 30 % (24-48); % MONOS 21 % (0-10); % SEGS 42 % (35-66)
[2021-06-03 12:51] LABS: ANISOCYTOSIS MARKED; PLT ESTIMATE ADEQUATE (ADEQUATE)
== END ==
LOC: ONCLAB 10:30
PROVIDERS: ATTEND Internal Medicine Hematology & Oncology
DX: C19 Malignant neoplasm of rectosigmoid junction (principal)
CPT/HCPCS: 36415; 80053; 82378; 85007; 85025

== ENCOUNTER → 2021-06-11 | Outpatient (CLI) | payer OTHER ==
[2021-06-11 11:55] LABS: BASO % 1 % (0-3); EOS # 0.1 x10^3/uL (0.0-0.7); EOS % 4 % (0-3); HEMATOCRIT 31.9 % (39.0-53.0); HEMOGLOBIN 10.3 g/dL (13.0-17.5); LYMPH # 0.5 x10^3/uL (1.0-4.8); LYMPH % 17 % (24-48); MEAN CORPUSCULAR HEMOGLOBIN 28 pg (25-35); MEAN CORPUSCULAR HGB CONC 32 g/dL (31-37); MEAN CORPUSCULAR VOLUME 88 fL (79-100); MONO # 0.5 x10^3/uL (0.0-1.1); MONO % 18 % (0-9); NEUT # 1.8 x10^3/uL (1.8-7.7); NEUT % 60 % (31-73); PLATELET COUNT 172 x10^3/uL (140-400); RED BLOOD COUNT 3.65 x10^6/uL (4.30-5.70); RED CELL DISTRIBUTION WIDTH 25.9 % (11.5-14.5)
[2021-06-11 12:03] LABS: CALCIUM 8.6 mg/dL (8.5-10.1); CREATININE 0.9 mg/dL (0.7-1.3); GFR 99.5; POTASSIUM 3.9 mmol/L (3.5-5.1)
[2021-06-11 12:09] LABS: ALBUMIN 2.8 g/dL (3.4-5.0); ALBUMIN/GLOBULIN RATIO 0.5 (1.0-1.7); TOTAL BILIRUBIN 0.3 mg/dL (0.2-1.0); TOTAL PROTEIN 7.9 g/dL (6.4-8.2)
[2021-06-11 13:18] LABS: PLT ESTIMATE ADEQUATE (ADEQUATE)
[2021-06-11 13:19] LABS: ANISOCYTOSIS PRESENT
== END ==
LOC: ONCLAB 11:45
PROVIDERS: ATTEND Physician Assistant
DX: C19 Malignant neoplasm of rectosigmoid junction (principal)
CPT/HCPCS: 36415; 80053; 82378; 85025

== ENCOUNTER → 2021-06-25 | Outpatient (CLI) | payer OTHER ==
[2021-06-25 11:15] LABS: BASO % 1 % (0-3); EOS # 0.2 x10^3/uL (0.0-0.7); EOS % 6 % (0-3); HEMATOCRIT 33.7 % (39.0-53.0); HEMOGLOBIN 11.1 g/dL (13.0-17.5); LYMPH # 0.5 x10^3/uL (1.0-4.8); LYMPH % 14 % (24-48); MEAN CORPUSCULAR HEMOGLOBIN 30 pg (25-35); MEAN CORPUSCULAR HGB CONC 33 g/dL (31-37); MEAN CORPUSCULAR VOLUME 90 fL (79-100); MONO # 0.6 x10^3/uL (0.0-1.1); MONO % 18 % (0-9); NEUT # 2.1 x10^3/uL (1.8-7.7); NEUT % 61 % (31-73); PLATELET COUNT 166 x10^3/uL (140-400); RED BLOOD COUNT 3.75 x10^6/uL (4.30-5.70); RED CELL DISTRIBUTION WIDTH 23.2 % (11.5-14.5); WHITE BLOOD COUNT 3.5 x10^3/uL (4.0-11.0)
[2021-06-25 11:27] LABS: CALCIUM 8.7 mg/dL (8.5-10.1); CREATININE 0.9 mg/dL (0.7-1.3); GFR 99.5; POTASSIUM 3.9 mmol/L (3.5-5.1)
[2021-06-25 11:34] LABS: ALBUMIN 2.9 g/dL (3.4-5.0); ALBUMIN/GLOBULIN RATIO 0.6 (1.0-1.7); TOTAL BILIRUBIN 0.2 mg/dL (0.2-1.0); TOTAL PROTEIN 7.9 g/dL (6.4-8.2)
[2021-06-25 12:23] LABS: ANISOCYTOSIS MOD; PLT ESTIMATE ADEQUATE (ADEQUATE)
== END ==
LOC: ONCLAB 10:58
PROVIDERS: ATTEND Internal Medicine Hematology & Oncology
DX: C19 Malignant neoplasm of rectosigmoid junction (principal)
CPT/HCPCS: 36415; 80053; 82378; 85025

== ENCOUNTER → 2021-06-26 | Outpatient (CLI) | payer OTHER ==
[~2021-06-26] MED LIST changes: +CONTRAST GIVEN. MC PRN; +IOHEXOL 240 MG/ML 50ML VIAL. PO ONE; +IOHEXOL 300 MG/ML 100ML VIAL. IV ONE
--- NOTE | 2021-06-26 15:34 | RAD ---
CT CHEST+ABD+PELVIS W dated 06/26/2021 1:57 PM Indication:Reason: colon cancer / Spl. Instructions: omni 300 75ml omni 240 50ml / History: Comparison: CT 10/11/2020, CT 08/14/2020. Technique: CT images were performed through the chest abdomen and pelvis following oral contrast anat stion and using an infusion of 75 mL Omnipaque 300. One or more of the following individualized dose reduction techniques were utilized for this examinat ion: 1. Automated exposure control 2. Adjustment of the mA and/or kV according to patient size 3. Use of iterative reconstruction technique Findings: CT chest: Pleural effusions present on the prior study have resolved. There is minimal residual atele ctasis. A nodule is seen medially in the right lower lobe. In retrospect, this appears to have been p resent previously and has not changed appreciably. This measures about 11 mm across. There are a coup le tiny peripheral nodules elsewhere that appear unchanged. No significant new pulmonary parenchymal abnormality is seen. The central airways show no obstruction. No enlarged lymph nodes are seen. The P ort-A-Cath is now present with its tip near the cavoatrial junction. CT abdomen and pelvis: There are a couple tiny cysts in the liver. No new liver parenchymal abnormali ty is seen. The spleen appears normal. Both kidneys enhance with contrast. No mass or obstruction is seen. The adrenal glands are not enlarged. The pancreas appears normal. No retroperitoneal or mesente danita adenopathy is seen. There is no apparent abdominal soft tissue mass. There is now an ostomy site in the left lower abdomen with distal colon extending to the area. There could be mild thickening of the wall of the colon as it extends into the ostium. There is no evidence of obstruction or a mass. Images through the pelvis now show changes of rectal resection. There is a suture line across the top of this region. Presacral abnormal density is seen, including an area of fluid density extending up to the upper sacrum. The region of fluid density has mediolateral dimension of about 2.3 cm, AP dimen martir of 1.5 cm, and craniocaudal extent of about 6.2 cm. A smaller thin connection is seen below the suture line. No soft tissue mass is identified in this region. There is no apparent pelvic or inguina l adenopathy. The distal ureters and bladder appear normal. IMPRESSION: CT chest: A right lower lobe lung nodule is stable from prior CT. There are no significant new findin gs. CT abdomen and pelvis: There is no evidence of distal colon resection and colostomy formation. Soft t issue and fluid density in the presacral region could all be postoperative. There is no evidence of r esidual or recurrent mass. There is no evidence of metastatic disease. Electronically signed by: Neal Haque Jr., MD (06/26/2021 3:31 PM) [id number]
== END ==
LOC: CT 13:23
PROVIDERS: ATTEND Internal Medicine Hematology & Oncology
DX: C19 Malignant neoplasm of rectosigmoid junction (principal); R91.8 Other nonspecific abnormal finding of lung field; J98.11 Atelectasis; K76.89 Other specified diseases of liver
CPT/HCPCS: 71260; 74177; Q9966; Q9967

== ENCOUNTER → 2021-07-29 | Outpatient (CLI) | payer OTHER ==
[~2021-07-29] MED LIST changes: -CONTRAST GIVEN. MC PRN; -IOHEXOL 240 MG/ML 50ML VIAL. PO ONE; -IOHEXOL 300 MG/ML 100ML VIAL. IV ONE
[2021-07-29 10:47] LABS: BASO # 0.1 x10^3/uL (0.0-0.2); BASO % 1 % (0-3); EOS # 0.7 x10^3/uL (0.0-0.7); EOS % 16 % (0-3); HEMOGLOBIN 11.7 g/dL (13.0-17.5); LYMPH # 0.7 x10^3/uL (1.0-4.8); LYMPH % 16 % (24-48); MEAN CORPUSCULAR HEMOGLOBIN 29 pg (25-35); MEAN CORPUSCULAR HGB CONC 33 g/dL (31-37); MEAN CORPUSCULAR VOLUME 90 fL (79-100); MONO # 0.6 x10^3/uL (0.0-1.1); MONO % 12 % (0-9); NEUT # 2.5 x10^3/uL (1.8-7.7); NEUT % 55 % (31-73); PLATELET COUNT 265 x10^3/uL (140-400); RED CELL DISTRIBUTION WIDTH 15.9 % (11.5-14.5); WHITE BLOOD COUNT 4.5 x10^3/uL (4.0-11.0)
[2021-07-29 11:04] LABS: CALCIUM 8.8 mg/dL (8.5-10.1); CREATININE 0.8 mg/dL (0.7-1.3); POTASSIUM 3.7 mmol/L (3.5-5.1)
[2021-07-29 11:11] LABS: ALBUMIN 2.7 g/dL (3.4-5.0); ALBUMIN/GLOBULIN RATIO 0.5 (1.0-1.7); TOTAL BILIRUBIN 0.2 mg/dL (0.2-1.0); TOTAL PROTEIN 7.8 g/dL (6.4-8.2)
== END ==
LOC: ONCLAB 10:31
PROVIDERS: ATTEND Physician Assistant
DX: C19 Malignant neoplasm of rectosigmoid junction (principal)
CPT/HCPCS: 36415; 80053; 82378; 83615; 85025

== ENCOUNTER → 2021-09-16 | Outpatient (CLI) | payer OTHER ==
[2021-09-16 09:17] LABS: BASO % 1 % (0-3); EOS # 0.6 x10^3/uL (0.0-0.7); EOS % 14 % (0-3); HEMOGLOBIN 12.4 g/dL (13.0-17.5); LYMPH # 0.8 x10^3/uL (1.0-4.8); LYMPH % 18 % (24-48); MEAN CORPUSCULAR HEMOGLOBIN 28 pg (25-35); MEAN CORPUSCULAR HGB CONC 33 g/dL (31-37); MEAN CORPUSCULAR VOLUME 86 fL (79-100); MONO # 0.5 x10^3/uL (0.0-1.1); MONO % 12 % (0-9); NEUT # 2.4 x10^3/uL (1.8-7.7); NEUT % 56 % (31-73); PLATELET COUNT 264 x10^3/uL (140-400); RED BLOOD COUNT 4.44 x10^6/uL (4.30-5.70); RED CELL DISTRIBUTION WIDTH 15.3 % (11.5-14.5); WHITE BLOOD COUNT 4.2 x10^3/uL (4.0-11.0)
[2021-09-16 09:31] LABS: CALCIUM 8.6 mg/dL (8.5-10.1); CREATININE 0.9 mg/dL (0.7-1.3); GFR 99.5; POTASSIUM 3.8 mmol/L (3.5-5.1)
[2021-09-16 09:39] LABS: ALBUMIN 2.7 g/dL (3.4-5.0); ALBUMIN/GLOBULIN RATIO 0.5 (1.0-1.7); TOTAL BILIRUBIN 0.2 mg/dL (0.2-1.0); TOTAL PROTEIN 8.5 g/dL (6.4-8.2)
== END ==
LOC: ONCLAB 08:49
PROVIDERS: ATTEND Internal Medicine Hematology & Oncology
DX: C19 Malignant neoplasm of rectosigmoid junction (principal)
CPT/HCPCS: 36415; 80053; 82378; 84550; 85025

== ENCOUNTER → 2021-10-24 | Outpatient (CLI) | payer OTHER ==
[~2021-10-24] MED LIST changes: +CONTRAST GIVEN. MC PRN; +IOHEXOL 240 MG/ML 50ML VIAL. PO ONE; +IOHEXOL 300 MG/ML 100ML VIAL. IV ONE
--- NOTE | 2021-10-24 15:52 | RAD ---
EXAM: CT OF THE CHEST, ABDOMEN AND PELVIS WITH CONTRAST. HISTORY: Colon cancer. TECHNIQUE: Computed tomography of the chest, abdomen and pelvis was performed after the intravenous a dministration of iodinated contrast. One or more of the following individualized dose reduction techn iques were utilized for this examination: 1. Automated exposure control. 2. Adjustment of the mA and/or kV according to patient size. 3. Use of iterative reconstruction technique. COMPARISON: 06/26/2021. FINDINGS: Bone windows reveal no suspicious lesions. A right-sided port catheter has its tip in the s uperior cavoatrial junction. There are no pathologically enlarged mediastinal or axillary lymph nodes. There is no pleural or rodolfo cardial effusion. The heart is not enlarged. An uncalcified nodule in the right azygoesophageal recess on image 37 measures 12 mm and is unchanged . Small foci of consolidation medially in both lower lobes may reflect scarring and has progressed mi ldly since the prior study. Small hypoattenuating foci within the right hepatic lobe are stable and likely reflect cysts. The gal lbladder, pancreas, adrenal glands, spleen and kidneys are unremarkable. There are no pathologically enlarged lymph nodes. Soft tissue density throughout the presacral space is stable. This is inseparable from what likely re flects a Chew's pouch which is otherwise difficult to identify. There is a left lower quadrant col ostomy. Stool throughout the colon is consistent with constipation. The appendix is not inflamed. The re is no small bowel obstruction. There is moderate bladder wall thickening. There is no ascites or clear peritoneal/omental metastatic disease. IMPRESSION: 1. Stable 1.2 cm nodule in the right lower lobe. Recommend attention on further follow-up. 2. Increased small regions of consolidation in the lung bases are likely postinflammatory. 3. Soft tissue density throughout the presacral space is likely postprocedural change. No evidence of local recurrence. 4. Correlate for mild constipation. Electronically signed by: Roberto Sprague MD (10/24/2021 3:50 PM) LITA
== END ==
LOC: CT 10:05
PROVIDERS: ATTEND Internal Medicine Hematology & Oncology
DX: R91.1 Solitary pulmonary nodule (principal); N32.89 Other specified disorders of bladder; Z93.3 Colostomy status
CPT/HCPCS: 71260; 74177; Q9966; Q9967

== ENCOUNTER → 2021-10-29 | Outpatient (CLI) | payer OTHER ==
[~2021-10-29] MED LIST changes: -CONTRAST GIVEN. MC PRN; -IOHEXOL 240 MG/ML 50ML VIAL. PO ONE; -IOHEXOL 300 MG/ML 100ML VIAL. IV ONE
[2021-10-29 09:44] LABS: BASO % 1 % (0-3); EOS # 0.4 x10^3/uL (0.0-0.7); EOS % 9 % (0-3); HEMOGLOBIN 12.8 g/dL (13.0-17.5); LYMPH % 21 % (24-48); MEAN CORPUSCULAR HEMOGLOBIN 27 pg (25-35); MEAN CORPUSCULAR HGB CONC 32 g/dL (31-37); MEAN CORPUSCULAR VOLUME 86 fL (79-100); MONO # 0.6 x10^3/uL (0.0-1.1); MONO % 13 % (0-9); NEUT # 2.6 x10^3/uL (1.8-7.7); NEUT % 57 % (31-73); PLATELET COUNT 226 x10^3/uL (140-400); RED BLOOD COUNT 4.67 x10^6/uL (4.30-5.70); RED CELL DISTRIBUTION WIDTH 16.4 % (11.5-14.5); WHITE BLOOD COUNT 4.6 x10^3/uL (4.0-11.0)
[2021-10-29 09:48] LABS: CALCIUM 8.5 mg/dL (8.5-10.1); CREATININE 1.1 mg/dL (0.7-1.3)
[2021-10-29 09:55] LABS: ALBUMIN 3.1 g/dL (3.4-5.0); ALBUMIN/GLOBULIN RATIO 0.6 (1.0-1.7); TOTAL BILIRUBIN 0.3 mg/dL (0.2-1.0); TOTAL PROTEIN 8.6 g/dL (6.4-8.2)
== END ==
LOC: ONCLAB 09:09
PROVIDERS: ATTEND Internal Medicine Hematology & Oncology
DX: C19 Malignant neoplasm of rectosigmoid junction (principal)
CPT/HCPCS: 36415; 80053; 82378; 83615; 85025

== ENCOUNTER → 2021-11-03 | Outpatient (CLI) | payer OTHER ==
--- NOTE | 2021-11-03 11:26 | RAD ---
EXAMINATION: XR RIGHT HIP (WITH OR WITHOUT PELVIS) 2 VIEWS CLINICAL HISTORY: RIGHT LEG PAIN FROM HIP TO KNEE TECHNIQUE: XR RIGHT HIP (WITH OR WITHOUT PELVIS) 2 VIEWS Number of Images/Views: 2 COMPARISON: CT chest/abdomen/pelvis 10/24/2021 FINDINGS: Mild axial joint space narrowing in the right hip. Left hip unremarkable on limited evaluation. Degen erative changes bilateral SI joints, incompletely evaluated. No acute fracture. Pelvic phleboliths. P ubic symphysis maintained. IMPRESSION: Mild degenerative changes right hip. Electronically signed by: Willie Staley DO (11/03/2021 11:24 AM) [id number]
--- NOTE | 2021-11-03 11:31 | RAD ---
EXAMINATION: XR LUMBAR SPINE 2-3V CLINICAL HISTORY: Low back pain. TECHNIQUE: XR LUMBAR SPINE 2-3V Number of Images/Views: 3 COMPARISON: CT chest/abdomen/pelvis 10/24/2021 FINDINGS: Normal anatomic alignment. No evidence of acute fracture or spondylolisthesis. Disc spaces are relati vely well-maintained. Facet arthropathy greatest in the lower lumbar spine. Vascular calcifications. IMPRESSION: Multilevel facet arthropathy, greatest in the lower lumbar spine. Electronically signed by: Willie Staley DO (11/03/2021 11:29 AM) [id number]
--- NOTE | 2021-11-03 11:33 | RAD ---
EXAMINATION: XR KNEE 3 VIEWS_RT CLINICAL HISTORY: RIGHT LEG PAIN FROM HIP TO KNEE. TECHNIQUE: XR KNEE 3 VIEWS_RT Number of Images/Views: 3 COMPARISON: None FINDINGS: Mild medial compartment narrowing. No acute fracture. Tiny suprapatellar enthesophyte. No joint effus ion. IMPRESSION: Mild degenerative changes right knee medial compartment. Electronically signed by: Willie Staley DO (11/03/2021 11:30 AM) [id number]
== END ==
LOC: LAB 09:47
PROVIDERS: ATTEND Internal Medicine Hematology & Oncology
DX: M17.11 Unilateral primary osteoarthritis, right knee (principal); M16.11 Unilateral primary osteoarthritis, right hip; M46.1 Sacroiliitis, not elsewhere classified; M48.8X6 Other specified spondylopathies, lumbar region
CPT/HCPCS: 72100; 73502; 73562

== ENCOUNTER 2021-12-25 06:46 | Emergency (ER) | payer OTHER ==
[~2021-12-25] VITALS: Ht 177.8 cm; Wt 63.1 kg
[2021-12-25] MEDS ORDERED: KETOROLAC 60 MG/2 ML VIAL. IM ONE (07:00)
--- NOTE | 2021-12-25 07:20 | PHYS DOC ---
Past Medical History Past Medical History: Anemia Additional Past Medical Histor: colon cancer Past Surgical History: No Surgical History Smoking Status: Never Smoker Alcohol Use: None General Adult EDM: Chief Complaint: LOWER EXT PAIN HPI: HPI: Patient is a 76 year old male presents with right leg pain that started 1 year ago. States that he has pain with ambulation and weightbearing. Denies any numbness or tingling states it starts around the ankle and radiates up the leg. Patient states the pain is worse in the right lateral thigh. Denies any injury. 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 Review of Systems: Review of Systems: Constitutional: Denies fever or chills. [] Eyes: Denies change in visual acuity. [] HENT: Denies nasal congestion or sore throat. [] Respiratory: Denies cough or shortness of breath. [] Cardiovascular: Denies chest pain or edema. [] GI: Denies abdominal pain, nausea, vomiting, bloody stools or diarrhea. [] : Denies dysuria. [] Musculoskeletal: Right leg pain denies back pain or joint pain. [] Integument: Denies rash. [] Neurologic: Denies headache, focal weakness or sensory changes. [] Endocrine: Denies polyuria or polydipsia. [] Lymphatic: Denies swollen glands. [] Psychiatric: Denies depression or anxiety. [] Heart Score: C/O Chest Pain: No Risk Factors: Risk Factors: DM, Current or recent (<one month) smoker, HTN, HLP, family history of CAD, obesity. Risk Scores: Score 0 - 3: 2.5% MACE over next 6 weeks - Discharge Home Score 4 - 6: 20.3% MACE over next 6 weeks - Admit for Clinical Observation Score 7 - 10: 72.7% MACE over next 6 weeks - Early Invasive Strategies Current Medications: Current Medications Medications (Trade) Dose Ordered Sig/Marck Start Time Stop Time Status Last Admin Dose Admin Ketorolac Tromethamine (Toradol Im) 30 mg 1X ONCE 12/25/21 07:00 12/25/21 07:08 DC Lorazepam (Ativan Inj) 1 mg 1X ONCE 12/25/21 07:00 12/25/21 07:08 DC Allergies: Allergies: Allergies Coded Allergies Type Severity Reaction Last Updated Verified No Known Drug Allergies 4/21/22 No Physical Exam: PE: Constitutional: Well developed, well nourished, no acute distress, non-toxic appearance. [] HENT: Normocephalic, atraumatic, bilateral external ears normal, oropharynx moist, no oral exudates, nose normal. [] Eyes: PERRLA, EOMI, conjunctiva normal, no discharge. [] Neck: Normal range of motion, no tenderness, supple, no stridor. [] Cardiovascular:Heart rate regular rhythm, no murmur [] Lungs & Thorax: Bilateral breath sounds clear to auscultation [] Abdomen: Bowel sounds normal, soft, no tenderness, no masses, no pulsatile masses. [] Skin: Warm, dry, no erythema, no rash. [] Back: No tenderness, no CVA tenderness. [] Extremities: Tenderness on the right lateral thigh. No discoloration cellulitis crepitance., no cyanosis, no clubbing, ROM intact, no edema. [] Neurologic: Alert and oriented X 3, normal motor function, normal sensory fu nction, no focal deficits noted. [] Psychologic: Affect normal, judgement normal, mood normal. [] Current Patient Data: Vital Signs: Vital Signs Date Time Temp Pulse Resp B/P (MAP) Pulse Ox O2 Delivery O2 Flow Rate FiO2 12/25/21 06:48 97.1 98 20 143/82 (102) 98 97.1 EKG: EKG: [] Radiology/Procedures: Radiology/Procedures: [] Right lower extremity venous Doppler dated 12/25/2021 7:25 AM COMPARISON: none. CLINICAL INDICATION: Pain Reason: pain hx of ca and recent sx / Spl. Instructions: / History: FINDINGS: Grayscale, color-flow and spectral waveform analysis performed to include the deep venous system of right lower extremity. There is normal compressibility, phasicity and augmentation of flow throughout. No filling defects are seen. IMPRESSION: No evidence of right lower extremity deep vein thrombosis. Course & Med Decision Making: Course & Med Decision Making Pertinent Labs and Imaging studies reviewed. (See chart for details) [] After the medication patient states that he feels much better. Ultrasound findings were discussed with the patient. Return precautions were discussed questions concerns were addressed Kim Disclaimer: Kim Disclaimer: This electronic medical record was generated, in whole or in part, using a voice recognition dictation system. Departure Departure Referrals: Erna TAYLOR MD (PCP) JOVITA CALDERA DO Dec 25, 2021 07:20
--- NOTE | 2021-12-25 07:27 | RAD ---
Right lower extremity venous Doppler dated 12/25/2021 7:25 AM COMPARISON: none. CLINICAL INDICATION: Pain Reason: pain hx of ca and recent sx / Spl. Instructions: / History: FINDINGS: Grayscale, color-flow and spectral waveform analysis performed to include the deep venous system of r ight lower extremity. There is normal compressibility, phasicity and augmentation of flow throughout. No filling defects are seen. IMPRESSION: No evidence of right lower extremity deep vein thrombosis. Electronically signed by: Billy Catherine MD (12/25/2021 7:25 AM) [email or web address]
[2021-12-25] MEDS ORDERED: DICL20GE TP (08:51)
[2021-12-25] MEDS ORDERED: CYCL5TAB PO (08:51)
[2021-12-25 09:12] VITALS: BP 135/95
== END 2021-12-25 09:19 | disposition home or self-care (01) ==
LOC: ER 06:46
DX: M79.651 Pain in right thigh (principal); Z86.2 Personal history of diseases of the blood and blood-forming organs and certain disorders involving the immune mechanism; Z85.038 Personal history of other malignant neoplasm of large intestine
CPT/HCPCS: 93971; 96372; 99284; J1885; J2060

== ENCOUNTER → 2022-01-26 | Outpatient (CLI) | payer OTHER ==
[~2022-01-26] MED LIST changes: +CYCL5TAB PO; +DICL20GE TP
[2022-01-26 12:00] LABS: BASO # 0.1 x10^3/uL (0.0-0.2); BASO % 2 % (0-3); CALCIUM 8.6 mg/dL (8.5-10.1); CREATININE 1.1 mg/dL (0.7-1.3); EOS # 1.1 x10^3/uL (0.0-0.7); EOS % 21 % (0-3); HEMATOCRIT 36.6 % (39.0-53.0); LYMPH # 0.7 x10^3/uL (1.0-4.8); LYMPH % 13 % (24-48); MEAN CORPUSCULAR HEMOGLOBIN 28 pg (25-35); MEAN CORPUSCULAR HGB CONC 33 g/dL (31-37); MEAN CORPUSCULAR VOLUME 86 fL (79-100); MONO # 0.4 x10^3/uL (0.0-1.1); MONO % 8 % (0-9); NEUT % 57 % (31-73); PLATELET COUNT 238 x10^3/uL (140-400); POTASSIUM 3.8 mmol/L (3.5-5.1); RED BLOOD COUNT 4.28 x10^6/uL (4.30-5.70); RED CELL DISTRIBUTION WIDTH 15.8 % (11.5-14.5); WHITE BLOOD COUNT 5.2 x10^3/uL (4.0-11.0)
[2022-01-26 12:06] LABS: ALBUMIN 2.8 g/dL (3.4-5.0); ALBUMIN/GLOBULIN RATIO 0.5 (1.0-1.7); TOTAL BILIRUBIN 0.3 mg/dL (0.2-1.0); TOTAL PROTEIN 8.1 g/dL (6.4-8.2)
[2022-01-26 13:22] LABS: % BASOS 1 % (0-3); % EOS 14 % (0-5); % LYMPHS 17 % (24-48); % MONOS 4 % (0-10); % SEGS 64 % (35-66); PLT ESTIMATE ADEQUATE (ADEQUATE)
== END ==
LOC: ONCLAB 11:34
PROVIDERS: ATTEND Internal Medicine Hematology & Oncology
DX: C19 Malignant neoplasm of rectosigmoid junction (principal); C20 Malignant neoplasm of rectum
CPT/HCPCS: 36415; 80053; 82378; 85007; 85025